=== PATIENT | male | born 1985 | race African-American/Black ===

== ENCOUNTER → 2020-08-18 11:49 | Outpatient (BNVA) | payer MEDICAID, SELFPAY | PROVIDERS: Visit Provider Nurse Practitioner | DX: R13.12 Dysphagia, oropharyngeal phase (principal); K21.9 Gastro-esophageal reflux disease without esophagitis; J30.9 Allergic rhinitis, unspecified; R19.6 Halitosis; D13.0 Benign neoplasm of esophagus | CPT/HCPCS: 99213 ==

== ENCOUNTER 2020-12-14 08:18 | Outpatient (REF) | payer MEDICAID, SELFPAY ==
--- NOTE | 2020-12-14 | FL_ITS ---
EXAMINATION: Double contrast upper GI examination and small bowel series INDICATION: Dysphagia. Gastroesophageal reflux disease. COMPARISON: 03/15/2020 TECHNIQUE: An initial cavalry scout image was obtained. Fluoroscopic assessment of the upper GI tract was performed in various upright and supine/prone obliquities utilizing thin and thick high density barium contrast material and effervescent granules. Following this, additional contrast was administered orally, and interval abdominal radiographs were performed to assess for contrast progression through the small bowel. Following contrast transit through the small bowel and into the colon, the patient was placed on the fluoroscopy table, and multiple spot images were obtained. FLUOROSCOPIC TIME: 1.3 minutes DOSE AREA PRODUCT: 18.921 Gycm2 FINDINGS: Shift Mgr image of the abdomen demonstrates a normal bowel gas pattern. There is normal oral bolus control and transfer. Normal posterior tilt of the epiglottis with elevation of the hyoid. The esophagus was normal in course, caliber, and contour. There was normal distensibility with no fixed segment of narrowing. No focal mucosal abnormality was identified. No significant esophageal dysmotility was observed. Contrast passed freely across the gastroesophageal junction into the stomach. No significant hiatal hernia. There was normal distensibility of the stomach with no focal abnormality identified. There was prompt gastric emptying into the duodenum which demonstrated a normal appearance. Mild gastroesophageal reflux was observed. There was normal transit time of contrast material through the small bowel, with contrast present in the colon by 30 minutes. Small bowel loops are of normal caliber throughout the abdomen and pelvis. The jejunal and ileal fold patterns are normal, without evidence of abnormal thickening. No fixed regions of luminal narrowing are seen to suggest stricturing. The terminal ileum demonstrates a normal appearance. FL/FL small bowel follow through IMPRESSION: Mild gastroesophageal reflux noted. Otherwise normal upper GI examination. Normal small bowel follow-through. Contrast is seen within the colon by 30 minutes post examination. Normal terminal ileum identified.
--- NOTE | 2020-12-14 08:20 | FL_ITS ---
EXAMINATION: Double contrast upper GI examination and small bowel series INDICATION: Dysphagia. Gastroesophageal reflux disease. COMPARISON: 03/15/2020 TECHNIQUE: An initial broadcast program director image was obtained. Fluoroscopic assessment of the upper GI tract was performed in various upright and supine/prone obliquities utilizing thin and thick high density barium contrast material and effervescent granules. Following this, additional contrast was administered orally, and interval abdominal radiographs were performed to assess for contrast progression through the small bowel. Following contrast transit through the small bowel and into the colon, the patient was placed on the fluoroscopy table, and multiple spot images were obtained. FLUOROSCOPIC TIME: 1.3 minutes DOSE AREA PRODUCT: 18.921 Gycm2 FINDINGS: Landscape Foreman image of the abdomen demonstrates a normal bowel gas pattern. There is normal oral bolus control and transfer. Normal posterior tilt of the epiglottis with elevation of the hyoid. The esophagus was normal in course, caliber, and contour. There was normal distensibility with no fixed segment of narrowing. No focal mucosal abnormality was identified. No significant esophageal dysmotility was observed. Contrast passed freely across the gastroesophageal junction into the stomach. No significant hiatal hernia. There was normal distensibility of the stomach with no focal abnormality identified. There was prompt gastric emptying into the duodenum which demonstrated a normal appearance. Mild gastroesophageal reflux was observed. There was normal transit time of contrast material through the small bowel, with contrast present in the colon by 30 minutes. Small bowel loops are of normal caliber throughout the abdomen and pelvis. The jejunal and ileal fold patterns are normal, without evidence of abnormal thickening. No fixed regions of luminal narrowing are seen to suggest stricturing. The terminal ileum demonstrates a normal appearance. FL/FL upper GI series IMPRESSION: Mild gastroesophageal reflux noted. Otherwise normal upper GI examination. Normal small bowel follow-through. Contrast is seen within the colon by 30 minutes post examination. Normal terminal ileum identified.
== END 2020-12-14 08:19 | disposition home or self-care (01) ==
LOC: HO.XRAY 08:18
PROVIDERS: PCP Nurse Practitioner Family; Visit Provider Nurse Practitioner
DX: K21.9 Gastro-esophageal reflux disease without esophagitis (principal)
CPT/HCPCS: 74240; 74246; 74248; 74250

== ENCOUNTER → 2020-12-21 14:32 | Outpatient (BNVA) | payer MEDICAID, SELFPAY | PROVIDERS: PCP Nurse Practitioner Family; Visit Provider Nurse Practitioner ==

== ENCOUNTER 2021-02-01 10:00 | Day surgery (SDC) | payer MEDICAID, SELFPAY ==
[2021-01-24 19:13] VITALS: BMI 13.4
--- NOTE | 2021-01-31 09:47 | HO.ANESPROP2 ---
Documented by User: Anahi Haritha 01/31/21 09:48 HPI - Anesthesia Eval Consult details Narrative: 35yo M for Upper Endoscopy [facility] Active Problems Active Problems: All Active Problems (Updated 08/18/20 @ 12:14 by DENYS Corea) Allergic rhinitis (Acute) High cholesterol (Acute) HTN (hypertension), benign (Acute) Halitosis (Acute) Bipolar disorder (Acute) Papilloma (Acute) Oropharyngeal dysphagia (Acute) Insomnia (Acute) Depression with anxiety (Acute) GERD (gastroesophageal reflux disease) (Acute) Asthma (Acute) Past Medical History Medical History Allergic rhinitis Asthma Bipolar disorder Depression with anxiety GERD (gastroesophageal reflux disease) High cholesterol HTN (hypertension), benign Oropharyngeal dysphagia Papilloma Family History Family History Father Asthma Hypertension Mother Asthma Hypertension Brother Alive and well Surgical History Surgical History H/O esophagogastroduodenoscopy Hx of tonsillectomy Social History Social History Alcohol intake: current Alcohol intake frequency: does not drink Smoking Status: Never smoker Use of substances other than those prescribed or required for medical reasons: No Have you been hit, kicked, punched, or otherwise hurt by someone within the past year? If so, by whom?: No Advance Directives: Yes Advance Directives Information Provided: Yes Advance Directives on File: Yes Advance Directives Date on File: 12/11/20 Meds Allergies Allergy/AdvReac Type Severity Reaction Status Date / Time shellfish derived Allergy Severe ANAPHYLAXIS Verified 01/24/21 19:13 [SHELLFISH DERIVED] Home Medications Medication Instructions Recorded Confirmed Last Taken Type albuterol sulfate 90 mcg/actuation 2 puff INHALATION Q6H PRN 08/18/20 01/24/21 Unknown History aerosol inhaler clonazepam 2 mg tablet 2 mg PO BID 08/18/20 01/24/21 Unknown History fluticasone propionate 50 1 spray INTRANASAL DAILY 08/18/20 01/24/21 Unknown History mcg/actuation nasal spray,suspension hydrochlorothiazide 25 mg tablet 25 mg PO DAILY 08/18/20 01/24/21 Unknown History ketotifen fumarate 0.025 % (0.035 1 drp OPHTHALMIC (EYE) BID 08/18/20 01/24/21 Unknown History %) eye drops montelukast 10 mg tablet 10 mg PO DAILY 08/18/20 01/24/21 Unknown History pravastatin 20 mg tablet 20 mg PO BEDTIME 08/18/20 01/24/21 Unknown History sertraline 25 mg tablet 25 mg PO DAILY 08/18/20 01/24/21 Unknown History trazodone 100 mg tablet 100 mg PO DAILY 08/18/20 01/24/21 Unknown History venlafaxine 150 mg 150 mg PO BEDTIME 08/18/20 01/24/21 Unknown History capsule,extended release 24 hr Exam Exam Date and Time: January 31, [id number] Height,Weight and Vital Signs: Height 5 ft 3 in Weight 34.473 kg Assessment and Plan Assessment Anesthesia Assessment: Chart Reviewed Documented by User: Gopal Aguilar MD 02/01/21 10:19 [facility] Past Medical History Medical History Allergic rhinitis Asthma Bipolar disorder Depression with anxiety GERD (gastroesophageal reflux disease) High cholesterol HTN (hypertension), benign Oropharyngeal dysphagia Papilloma Family History Family History Father Asthma Hypertension Mother Asthma Hypertension Brother Alive and well Surgical History Surgical History H/O esophagogastroduodenoscopy Hx of tonsillectomy Social History Social History Alcohol intake: current Alcohol intake frequency: does not drink Smoking Status: Never smoker Use of substances other than those prescribed or required for medical reasons: No Have you been hit, kicked, punched, or otherwise hurt by someone within the past year? If so, by whom?: No Advance Directives: Yes Advance Directives Information Provided: Yes Advance Directives on File: Yes Advance Directives Date on File: 12/11/20 Meds Allergies Allergy/AdvReac Type Severity Reaction Status Date / Time shellfish derived Allergy Severe ANAPHYLAXIS Verified 01/24/21 19:13 [SHELLFISH DERIVED] Home Medications Medication Instructions Recorded Confirmed Last Taken Type albuterol sulfate 90 mcg/actuation 2 puff INHALATION Q6H PRN 08/18/20 01/24/21 Unknown History aerosol inhaler clonazepam 2 mg tablet 2 mg PO BID 08/18/20 01/24/21 Unknown History fluticasone propionate 50 1 spray INTRANASAL DAILY 08/18/20 01/24/21 Unknown History mcg/actuation nasal spray,suspension hydrochlorothiazide 25 mg tablet 25 mg PO DAILY 08/18/20 01/24/21 Unknown History ketotifen fumarate 0.025 % (0.035 1 drp OPHTHALMIC (EYE) BID 08/18/20 01/24/21 Unknown History %) eye drops montelukast 10 mg tablet 10 mg PO DAILY 08/18/20 01/24/21 Unknown History pravastatin 20 mg tablet 20 mg PO BEDTIME 08/18/20 01/24/21 Unknown History sertraline 25 mg tablet 25 mg PO DAILY 08/18/20 01/24/21 Unknown History trazodone 100 mg tablet 100 mg PO DAILY 08/18/20 01/24/21 Unknown History venlafaxine 150 mg 150 mg PO BEDTIME 08/18/20 01/24/21 Unknown History capsule,extended release 24 hr Exam Airway Mallampati Class: II TM Dist: >3cm Neck ROM: Full Loose/Missing/Broken Teeth: No Heart: RRR Lungs: NL Assessment and Plan Assessment Anesthesia Assessment: Anesthesia Plan Discussed and Chart Reviewed Final Anesthetic Review NPO: Yes ASA Class: II Final Preanesthetic Review: No Changes in Pt Med Stat, Meds/Allgs Chart Reviewed, Consent Obtained/Reviewed and Anes Risks/Benef Reviewed Patient Risk: Low Anesthetic Plan Anesthetic Plan: MAC: Disposition: Standard PACU
[2021-02-01 10:09] VITALS: BP 128/71; PULSE 82; RESP 18; TEMP 36.8; O2SAT 97
--- NOTE | 2021-02-01 10:10 | MHC.SHP ---
Pre-Procedural Eval Section B Chief Complaint: reflux disease,dysphagia Relevant Family History (Specify if Yes): No Relevant Social History: None Present Medications: see Short Stay Collaborative assessment Medical History: Significant History (Allergic rhinitis Asthma Bipolar disorder Depression with anxiety GERD (gastroesophageal reflux disease) High cholesterol HTN (hypertension), benign Oropharyngeal dysphagia Papilloma) History of Previous Operations: Relevant previous surgery/procedure and date(s) (tonsilectomy) Allergies: Allergies Allergy/AdvReac Type Severity Reaction Status Date / Time shellfish derived Allergy Severe ANAPHYLAXIS Verified 01/24/21 19:13 [SHELLFISH DERIVED] Review of Systems Sugical H&P ROS: Negative: Constitution, Cardiovascular, Respiratory, Neurological, Psychiatric, Hem-Onc, Allergic/Immunologic, Gastrointestinal, Genitourinary, Musculoskeletal, Integumentary, Endocrine and Eyes/Ears/Nose/Throat Exam Surgical H&P Exam: Normal: HEENT, Normal: Heart, Normal: Lungs, Normal: Extremities, Normal: Abdomen, Normal: Skin and Normal: Neurological Plan Diagnosis/Plan: Unchanged I have reviewed the history and physical and performed a pertinent physical examination on my patient. No changes have occurred unless specified.
[2021-02-01] MEDS: Lactated Ringers 1,000 ML 100 ML IVCONT (10:26)
--- NOTE | 2021-02-01 10:55 | PM.OP ---
Brief Operative Note Date of Service: 02/01/21 Pre-op diagnosis: dysphagia Post-op diagnosis: same Procedure: see op note Surgeon: Nelda Cota MD Anesthesia: MAC Estimated blood loss (mL): 0 Condition: stable Disposition: PACU
--- NOTE | 2021-02-01 10:58 | W.PM.OPN ---
Operative Note Operative Note Date of Service: 02/01/21 Narrative: Procedure Description: EGD FLEXIBLE TRANSORAL UPPER GASTROINTESTINAL ENDOSCOPY UPPER ENDOSCOPY Consent: Indications for the procedure and potential complications of bleeding, perforation, reaction to medications and missed diagnosis were discussed with the patient and informed consent was obtained. Instrument: Olympus GIF H 190 J mid size upper endoscope Monitoring: Vital signs and clinical assessment, continuous EKG monitoring, Pulse oximetry, Carbon Dioxide monitoring and blood pressure monitoring were done throughout the procedure. Procedure: The patient was placed in the left lateral decubitis position and pre-procedure medications were administered and a bite block was placed. The endoscope was inserted into the mouth and advanced under direct vision to the third part of duodenum. A careful inspection was made as the upper endoscope was withdrawn including a retroflexed examination of the proximal stomach; Findings and interventions are described below. Findings: Larynx:normal Esophagus: GE junction at 40 cm, diaphragm hiatus at 40 cm, irregular Z line bx taken from GEJ and distal/proximal esophagus in separate jars, balloon dilation at GEJ and UES at 20 mm balloon size-no tear seen--small inlet patch seen at proximal esophagus 7-9 mm Stomach: Normal mucosa. Grade 2 flap valve on retroflexed examination of the cardia. Duodenum: Normal bulb and descending duodenum, Intervention: Biopsies as noted above, ablloon dilation Impression/Findings: esophageal inlet patch PLAN: await bx consider aggressive anti acid regimen with PPI BID and carafate, if sx persist then esophageal manometry and pH impedance--Loving is another option but not available here yet
[2021-02-01 11:03] VITALS: BP 99/60; PULSE 103; RESP 20; TEMP 36.7; O2SAT 98
[2021-02-01 11:17] VITALS: BP 93/59; PULSE 80; RESP 18; O2SAT 98
[2021-02-01] MEDS: Albuterol/Iprat 2.5/0.5MG 3 ML AMPUL.NEB INHALE (11:20)
[2021-02-01 11:32] VITALS: BP 102/63; PULSE 76; RESP 18; TEMP 36.4; O2SAT 99
== END 2021-02-01 12:12 | disposition home or self-care (01) ==
PROVIDERS: PCP Nurse Practitioner Family; Visit Provider Internal Medicine Gastroenterology
PROC: 0DJ08ZZ Inspection of Upper Intestinal Tract, Via Natural or Artificial Opening Endoscopic (ICD-10-PCS; CPT 43235; principal; 2021-02-01 10:10)
DX: K22.8 Other specified diseases of esophagus (principal); R13.12 Dysphagia, oropharyngeal phase; K21.9 Gastro-esophageal reflux disease without esophagitis; Q39.8 Other congenital malformations of esophagus; K44.9 Diaphragmatic hernia without obstruction or gangrene; I10 Essential (primary) hypertension; J45.909 Unspecified asthma, uncomplicated
CPT/HCPCS: 43249; 43239; 88305; C1726

== ENCOUNTER → 2021-03-15 14:36 | Outpatient (BNVA) | payer MEDICAID, SELFPAY | PROVIDERS: PCP Nurse Practitioner Family; Visit Provider Nurse Practitioner ==

== ENCOUNTER 2021-10-08 08:06 | Outpatient (REF) | payer MEDICAID, SELFPAY ==
--- NOTE | 2021-10-08 | PFT_ITS ---
Forced vital capacity is normal. FEV1 slightly decreased. [id number] and MVV are moderately decreased. Post bronchodilator therapy, there is significant response and improvement in FEV1, [id number], and MVV. Total lung capacity and residual volume normal. Diffusion capacity normal. CONCLUSION: Mild to moderate degree of obstructive airway disorder with good response to bronchodilator therapy. These findings are consistent with mild bronchial asthma. Clinical correlation is recommended. MD JOE Espinoza/PEDRO / [phone]
== END 2021-10-08 08:07 | disposition home or self-care (01) ==
LOC: HO.RESP 08:06
PROVIDERS: PCP Nurse Practitioner Primary Care; Visit Provider Nurse Practitioner Primary Care
DX: R06.02 Shortness of breath (principal)
CPT/HCPCS: 94060; 94727; 94729

== ENCOUNTER → 2022-02-01 07:51 | Outpatient (BNVA) | payer MEDICAID, SELFPAY | PROVIDERS: PCP Nurse Practitioner Primary Care; Visit Provider Nurse Practitioner | DX: K21.9 Gastro-esophageal reflux disease without esophagitis (principal); R13.12 Dysphagia, oropharyngeal phase; R19.6 Halitosis | CPT/HCPCS: 99212 ==

== ENCOUNTER 2022-02-19 16:48 | Emergency (ER) | payer MEDICAID, SELFPAY ==
[2022-02-19 17:11] VITALS: BP 129/85; PULSE 126; RESP 16; TEMP 36.8; O2SAT 96; BMI 33.5
--- NOTE | 2022-02-19 17:14 | ED_ITS ---
HPI - Allergic Reaction General Chief complaint: Allergic Reaction Stated complaint: allergic reaction/ diff breathing Time Seen by Provider: 02/19/22 17:14 Related Data Home Medications Medication Instructions Recorded Confirmed albuterol sulfate 90 mcg/actuation 2 puff INHALATION Q6H PRN 08/18/20 01/24/21 aerosol inhaler clonazepam 2 mg tablet 2 mg PO BID 08/18/20 01/24/21 fluticasone propionate 50 1 spray INTRANASAL DAILY 08/18/20 01/24/21 mcg/actuation nasal spray,suspension (Flonase Allergy Relief) hydrochlorothiazide 25 mg tablet 25 mg PO DAILY 08/18/20 01/24/21 ketotifen fumarate 0.025 % (0.035 1 drp OPHTHALMIC (EYE) BID 08/18/20 01/24/21 %) eye drops montelukast 10 mg tablet 10 mg PO DAILY 08/18/20 01/24/21 (Singulair) pravastatin 20 mg tablet 20 mg PO BEDTIME 08/18/20 01/24/21 sertraline 25 mg tablet 25 mg PO DAILY 08/18/20 01/24/21 trazodone 100 mg tablet 100 mg PO DAILY 08/18/20 01/24/21 venlafaxine 150 mg 150 mg PO BEDTIME 08/18/20 01/24/21 capsule,extended release 24 hr Previous Rx's Medication Instructions Recorded famotidine 40 mg tablet (Pepcid) 40 mg PO .QAFTERNOON #30 tab 02/01/22 pantoprazole 40 mg tablet,delayed 40 mg PO BID #60 tab 02/05/22 release epinephrine 0.3 mg/0.3 mL 0.3 mg (0.3 mL) IM Q4H PRN #2 ea 02/19/22 injection, auto-injector Allergies Allergy/AdvReac Type Severity Reaction Status Date / Time shellfish derived Allergy Severe ANAPHYLAXIS Verified 02/01/22 07:53 [SHELLFISH DERIVED] [facility] Past Medical History Medical History Allergic rhinitis Asthma Bipolar disorder Depression with anxiety GERD (gastroesophageal reflux disease) High cholesterol HTN (hypertension), benign Oropharyngeal dysphagia Papilloma Surgical History H/O esophagogastroduodenoscopy Hx of tonsillectomy Family History Family History Father Asthma Hypertension Mother Asthma Hypertension Brother Alive and well Social History Social History Household Members: Spouse and Children Alcohol intake: current Alcohol intake frequency: does not drink Advance Directives: Yes Advance Directives on File: Yes Advance Directives Date on File: 12/11/20 Current occupational status: disabled Physical Exam ED Vital Signs: Vital Signs - 24 hr 02/19/22 17:11 Temperature 98.3 F Pulse Rate 126 H Respiratory Rate 16 Blood Pressure 129/85 Pulse Oximetry 96 BMI result Body Mass Index 33.5 Discharge Plan Discharge Clinical Impression: Allergic reaction, Anaphylaxis Patient Disposition: Home, Self-Care Instructions: Food Allergy (ED), Anaphylaxis (ED), General Allergic Reaction (ED), Allergy Testing (ED) Additional Instructions: You were evaluated for anaphylactic reaction to squid. Please do not eat any seafood. You must follow-up with primary care physician for allergy testing. I prescribed epinephrine pens for you. Please pick them up from the pharmacy and keep him with you at all times. Thank you for choosing this emergency department for evaluation. Please follow-up with primary care physician as needed. Return to the emergency department for any new, concerning, or worsening symptoms. Prescriptions: New epinephrine 0.3 mg/0.3 mL auto-injector 0.3 mg IM Q4H PRN (Reason: anaphylaxis) Qty: 2 0RF No Action pantoprazole 40 mg tablet,delayed release (DR/EC) 40 mg PO BID Qty: 60 1RF albuterol sulfate 90 mcg/actuation HFA aerosol inhaler 2 puff inhalation Q6H PRN (Reason: Shortness Of Breath Or Wheezing) 0RF pravastatin 20 mg tablet 20 mg PO BEDTIME 0RF venlafaxine 150 mg capsule,extended release 24hr 150 mg PO BEDTIME 0RF hydrochlorothiazide 25 mg tablet 25 mg PO DAILY 0RF clonazepam 2 mg tablet 2 mg PO BID 0RF montelukast [Singulair] 10 mg tablet 10 mg PO DAILY 0RF trazodone 100 mg tablet 100 mg PO DAILY 0RF sertraline 25 mg tablet 25 mg PO DAILY 0RF fluticasone propionate [Flonase Allergy Relief] 50 mcg/actuation spray,suspension 1 spray intranasal DAILY 0RF Rx Instructions: administer into each nostril ketotifen fumarate 0.025 % (0.035 %) drops 1 drp ophthalmic (eye) BID 0RF Rx Instructions: administer at least 8 hours apart famotidine [Pepcid] 40 mg tablet 40 mg PO .SUHAIL Qty: 30 6RF Referrals: [place] [Primary Care Provider] - (Anaphylactic reaction) Interventions: ED Discharge Assessment Last Done: 02/19/22 18:48 Discharge Date/Time: 02/19/22 18:51
--- NOTE | 2022-02-19 17:15 | ED_ITS ---
HPI - Allergic Reaction General Chief complaint: Allergic Reaction Stated complaint: allergic reaction/ diff breathing Time Seen by Provider: 02/19/22 17:14 Source: patient Mode of arrival: ambulatory Limitations: no limitations History of Present Illness HPI narrative: 36-year-old male presents with allergic reaction after eating squid complaint: allergic reaction, hives, facial swelling and other (Difficulty breathing) Onset (ago): minute(s) (40) Exposure: food Symptoms: facial swelling, lip swelling, difficulty swallowing, difficulty breathing, hoarseness, dizziness, nausea and vomiting Severity: severe Treatment prior to arrival: none Previous Allergic Reaction History: none Related Data Home Medications Medication Instructions Recorded Confirmed albuterol sulfate 90 mcg/actuation 2 puff INHALATION Q6H PRN 08/18/20 01/24/21 aerosol inhaler clonazepam 2 mg tablet 2 mg PO BID 08/18/20 01/24/21 fluticasone propionate 50 1 spray INTRANASAL DAILY 08/18/20 01/24/21 mcg/actuation nasal spray,suspension (Flonase Allergy Relief) hydrochlorothiazide 25 mg tablet 25 mg PO DAILY 08/18/20 01/24/21 ketotifen fumarate 0.025 % (0.035 1 drp OPHTHALMIC (EYE) BID 08/18/20 01/24/21 %) eye drops montelukast 10 mg tablet 10 mg PO DAILY 08/18/20 01/24/21 (Singulair) pravastatin 20 mg tablet 20 mg PO BEDTIME 08/18/20 01/24/21 sertraline 25 mg tablet 25 mg PO DAILY 08/18/20 01/24/21 trazodone 100 mg tablet 100 mg PO DAILY 08/18/20 01/24/21 venlafaxine 150 mg 150 mg PO BEDTIME 08/18/20 01/24/21 capsule,extended release 24 hr Previous Rx's Medication Instructions Recorded famotidine 40 mg tablet (Pepcid) 40 mg PO .QAFTERNOON #30 tab 02/01/22 pantoprazole 40 mg tablet,delayed 40 mg PO BID #60 tab 02/05/22 release epinephrine 0.3 mg/0.3 mL 0.3 mg (0.3 mL) IM Q4H PRN #2 ea 02/19/22 injection, auto-injector Allergies Allergy/AdvReac Type Severity Reaction Status Date / Time shellfish derived Allergy Severe ANAPHYLAXIS Verified 02/01/22 07:53 [SHELLFISH DERIVED] Review of Systems Review of Systems: Constitutional: No Fever, No Chills ENT/Mouth: positive oral swelling, positive Hoarseness, positive Swallowing Difficulty Eyes: No Eye Pain, No Swelling, No Redness Cardiovascular: No Chest Pain, positive SOB Respiratory: Positive stridor, No Cough, No Sputum, positive Wheezing, No Smoke Exposure, No Dyspnea Gastrointestinal: Positive Nausea, positive Vomiting, No Diarrhea, No abdominal Pain Genitourinary: No Dysuria, No Urinary Frequency, No Hematuria Musculoskeletal: No joint pain, No Myalgias, No Joint Swelling Skin: No Skin Lesions, positive rash Neuro: No Weakness, No Numbness, No Headache Psych: No Anxiety/Panic, No Depression Heme/Lymph: No Bruising, No Lymphadenopathy Endocrine: No Polyuria, No Polydipsia Yes all other systems are reviewed and are negative [facility] Past Medical History Attestation statement: The following information was validated with the patient. Source: old records reviewed Medical History Allergic rhinitis Asthma Bipolar disorder Depression with anxiety GERD (gastroesophageal reflux disease) High cholesterol HTN (hypertension), benign Oropharyngeal dysphagia Papilloma Surgical History H/O esophagogastroduodenoscopy Hx of tonsillectomy Family History Family History Father Asthma Hypertension Mother Asthma Hypertension Brother Alive and well Social History Social History Household Members: Spouse and Children Alcohol intake: current Alcohol intake frequency: does not drink Advance Directives: Yes Advance Directives on File: Yes Advance Directives Date on File: 12/11/20 Current occupational status: disabled Physical Exam ED Vital Signs: Vital Signs - 24 hr 02/19/22 17:11 02/19/22 18:31 Temperature 98.3 F Pulse Rate 126 H 114 H Respiratory Rate 16 14 Blood Pressure 129/85 135/72 Pulse Oximetry 96 97 BMI result Body Mass Index 33.5 Appearance: Alert. Oriented X3. Moderate distress. Eyes: Pupils equal, round and reactive to light. ENT: Pharynx normal. Edematous lips Neck: Normal inspection. Neck supple. CVS: Tachycardic heart rate and rhythm. Pulses normal. Respiratory: Moderate respiratory distress. Tracheal stridor with expiratory wheezing throughout lung sounds. Abdomen: Soft and nontender. Skin: Skin warm and dry. Flushed. Hives. Extremities: No lower extremity edema. Moves all extremities against resistance. Neuro: No motor deficit. No sensory deficit. Cranial nerves 2-12 intact. Course Course Course Narrative: 36-year-old male presents with allergic reaction, ate squared approximately 45 minutes prior to arrival. Patient started vomiting, felt his throat closing was unable to take full deep breath. Patient is flushed, has tracheal stridor, tachycardic in the 130s. Order for epi 0.3 IM, Pepcid 20, Benadryl 50, and Solu-Medrol 125. Patient continues with stridor approximately 5 minutes after 1st dose of epinephrine. However patient states that he can breathe better. Second dose of epinephrine ordered. 17:25 lung sounds clear, no tracheal stridor. 17:37 lung sounds clear. No tracheal stridor. Even unlabored respirations. Abdomen nontender to palpation. Lips no longer swollen. Tachycardic at 115. Blood pressure 140/90. 17:44 lung sounds clear, no stridor. Even unlabored respirations. Abdomen nontender to palpation. Tachycardic at 100. Blood pressure 127/78. Apical pulse equal to pulses to all extremities. 18:42 lung sounds clear, no stridor, even unlabored respirations, abdomen nontender, skin normal color no redness or hives noted. Heart rate in the 90s, blood pressure 125/76. Patient states to feel well. Patient will be discharged home. 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 Patient verbalized understanding of and agrees to plan of care to discharge home. Verbalized understanding of signs and symptoms indicating need for emergent intervention MDM - Allergic Reaction Differential Diagnosis Differential diagnosis: Likely anaphylaxis and allergic reaction Medical Records Attestation: I reviewed the patient's medical records. Critical Care Time Critical Care Time Critical Care Time: Yes Total Critical Care Time: 45 Attestation: I have personally provided critical care time exclusive of time spent on separately billable procedures. Time includes review of laboratory data, radiology results, discussion with consultants, and monitoring for potential decompensation. Interventions were performed as documented. Discharge Plan Discharge Clinical Impression: Allergic reaction, Anaphylaxis Patient Disposition: Home, Self-Care Instructions: Food Allergy (ED), Anaphylaxis (ED), General Allergic Reaction (ED), Allergy Testing (ED) Additional Instructions: You were evaluated for anaphylactic reaction to squid. Please do not eat any seafood. You must follow-up with primary care physician for allergy testing. I prescribed epinephrine pens for you. Please pick them up from the pharmacy and keep him with you at all times. Thank you for choosing this emergency department for evaluation. Please follow-up with primary care physician as needed. Return to the emergency department for any new, concerning, or worsening symptoms. Prescriptions: New epinephrine 0.3 mg/0.3 mL auto-injector 0.3 mg IM Q4H PRN (Reason: anaphylaxis) Qty: 2 0RF No Action pantoprazole 40 mg tablet,delayed release (DR/EC) 40 mg PO BID Qty: 60 1RF albuterol sulfate 90 mcg/actuation HFA aerosol inhaler 2 puff inhalation Q6H PRN (Reason: Shortness Of Breath Or Wheezing) 0RF pravastatin 20 mg tablet 20 mg PO BEDTIME 0RF venlafaxine 150 mg capsule,extended release 24hr 150 mg PO BEDTIME 0RF hydrochlorothiazide 25 mg tablet 25 mg PO DAILY 0RF clonazepam 2 mg tablet 2 mg PO BID 0RF montelukast [Singulair] 10 mg tablet 10 mg PO DAILY 0RF trazodone 100 mg tablet 100 mg PO DAILY 0RF sertraline 25 mg tablet 25 mg PO DAILY 0RF fluticasone propionate [Flonase Allergy Relief] 50 mcg/actuation spray,suspe nsion 1 spray intranasal DAILY 0RF Rx Instructions: administer into each nostril ketotifen fumarate 0.025 % (0.035 %) drops 1 drp ophthalmic (eye) BID 0RF Rx Instructions: administer at least 8 hours apart famotidine [Pepcid] 40 mg tablet 40 mg PO .QAFTERNOON Qty: 30 6RF Referrals: [facility] [Primary Care Provider] - (Anaphylactic reaction) Interventions: ED Discharge Assessment Last Done: 02/19/22 18:48 Discharge Date/Time: 02/19/22 18:51
[2022-02-19] MEDS: EPINEPHrine 1 MG/ML VIAL 0.3 MG IM ×2 (17:21→17:46)
[2022-02-19] MEDS: Famotidine/PF 20 MG/2 ML VIAL IVPUSH (17:22)
[2022-02-19] MEDS: diphenhydrAMINE HCL 50 MG/ML VIAL IVPUSH (17:22)
[2022-02-19] MEDS: methylPREDNISolone Sod Succ 125 MG/2 ML VIAL IVPUSH (17:22)
[2022-02-19] MEDS: 0.9 % Sodium Chloride 1,000 ML 999 ML IV (17:46)
[2022-02-19 18:31] VITALS: BP 135/72; PULSE 114; RESP 14; O2SAT 97
== END 2022-02-19 18:51 | disposition home or self-care (01) ==
PROVIDERS: Emergency Provider Emergency Medicine
DX: T78.03XA Anaphylactic reaction due to other fish, initial encounter (principal); R00.0 Tachycardia, unspecified
CPT/HCPCS: 96361; 96372; 96374; 96375; 99284; 99291; J0171; J1200; J2930

== ENCOUNTER → 2022-04-01 14:44 | Outpatient (BNVA) | payer MEDICAID, SELFPAY | PROVIDERS: Visit Provider Nurse Practitioner | DX: K21.9 Gastro-esophageal reflux disease without esophagitis (principal); J32.9 Chronic sinusitis, unspecified; R13.12 Dysphagia, oropharyngeal phase; R19.6 Halitosis | CPT/HCPCS: 99212 ==

== ENCOUNTER 2022-05-01 20:42 | Emergency (ER) | payer MEDICAID, SELFPAY ==
[2022-05-01 20:44] VITALS: PULSE 97; TEMP 36.8; BMI 31.9
[2022-05-01 20:55] VITALS: BP 137/81; PULSE 95
[2022-05-01] MEDS: diphenhydrAMINE HCL 50 MG/ML VIAL IVPUSH (20:55)
[2022-05-01] MEDS: EPINEPHrine 1 MG/ML VIAL 0.3 MG IM (20:55)
[2022-05-01] MEDS: Famotidine/PF 20 MG/2 ML VIAL IVPUSH (20:55)
[2022-05-01] MEDS: methylPREDNISolone Sod Succ 125 MG/2 ML VIAL IVPUSH (20:55)
--- NOTE | 2022-05-01 21:05 | PC.NURSE ---
patient a&ox3, lungs clear throughout, pt c/o facial swelling and difficulty breathing through his nose, campus monitor applied, pt sinus tach on monitor, iv inserted, pt medicated per order, vss, call white within reach, will continue to monitor.
--- NOTE | 2022-05-01 21:38 | ED.ALLEREA ---
HPI - Allergic Reaction General Chief complaint: Allergic Reaction Stated complaint: allergic reaction diff breathing Time Seen by Provider: 05/01/22 20:50 Source: patient Mode of arrival: ambulatory Limitations: no limitations History of Present Illness HPI narrative: Patient allergic to seafood had Dutch and egg roll which did not contain any seafood but after eating that patient started having itching on the face shortness of breath and wheezing. Denies any lip or tongue swelling Related Data Home Medications Medication Instructions Recorded Confirmed albuterol sulfate 90 mcg/actuation 2 puff inhalation Q6H PRN 08/18/20 01/24/21 aerosol inhaler Shortness Of Breath Or Wheezing clonazepam 2 mg tablet 2 mg PO BID 08/18/20 01/24/21 fluticasone propionate 50 1 spray intranasal DAILY 08/18/20 01/24/21 mcg/actuation nasal spray,suspension (Flonase Allergy Relief) hydrochlorothiazide 25 mg tablet 25 mg PO DAILY 08/18/20 01/24/21 ketotifen fumarate 0.025 % (0.035 1 drp ophthalmic (eye) BID 08/18/20 01/24/21 %) eye drops montelukast 10 mg tablet 10 mg PO DAILY 08/18/20 01/24/21 (Singulair) pravastatin 20 mg tablet 20 mg PO BEDTIME 08/18/20 01/24/21 sertraline 25 mg tablet 25 mg PO DAILY 08/18/20 01/24/21 trazodone 100 mg tablet 100 mg PO DAILY 08/18/20 01/24/21 venlafaxine 150 mg 150 mg PO BEDTIME 08/18/20 01/24/21 capsule,extended release 24 hr Previous Rx's Medication Instructions Recorded famotidine 40 mg tablet (Pepcid) 40 mg PO .QAFTERNOON #30 tabs 02/01/22 epinephrine 0.3 mg/0.3 mL 0.3 mg (0.3 mL) IM Q4H PRN 02/19/22 injection, auto-injector anaphylaxis #2 ea pantoprazole 40 mg tablet,delayed 40 mg PO BID #60 tabs 03/26/22 release doxycycline hyclate 100 mg capsule 100 mg PO BID 14 days #28 caps 04/01/22 diphenhydramine HCl 25 mg capsule 50 mg PO Q6-8H PRN allergic 05/01/22 (Benadryl) reaction #30 caps epinephrine 0.3 mg/0.3 mL 0.3 mg (0.3 mL) IM Q4H PRN 05/01/22 injection, auto-injector (EpiPen anaphylaxis #2 ea 2-Denny) prednisone 20 mg tablet 40 mg PO DAILY #10 tabs 05/01/22 Allergies Allergy/AdvReac Type Severity Reaction Status Date / Time shellfish derived Allergy Severe ANAPHYLAXIS Verified 04/01/22 14:50 [SHELLFISH DERIVED] Review of Systems Review of Systems: Yes all other systems are reviewed and are negative [facility] Past Medical History Medical History Allergic rhinitis Asthma Bipolar disorder Depression with anxiety High cholesterol HTN (hypertension), benign Surgical History H/O esophagogastroduodenoscopy Hx of tonsillectomy Family History Family History Father Asthma Hypertension Mother Asthma Hypertension Brother Alive and well Social History Social History Household Members: Spouse and Children Alcohol intake: never Patient Tobacco Use Status: Never used Tobacco Use of substances other than those prescribed or required for medical reasons: No Advance Directives: Yes Advance Directives Information Provided: No Advance Directives on File: No Advance Directives Date on File: 12/11/20 Current occupational status: disabled Physical Exam ED Vital Signs: Vital Signs - 24 hr 05/01/22 20:44 05/01/22 20:55 Temperature 98.3 F Pulse Rate 97 95 Blood Pressure 137/81 Oxygen Delivery Method Room Air BMI result Body Mass Index 31.9 Appearance: Alert. Oriented X3. No acute distress. Eyes: PERRLA, No Nystagmus HEENT: Pharynx normal. Oral Mucosa moist face is swollen with erythema Neck: Normal inspection. Neck supple. CVS: Normal heart rate and rhythm. Pulses normal. Respiratory: No respiratory distress. Equal air entry bilateral, bilateral wheezing Abdomen: Soft and nontender. Bowel sounds are present, no mass palpable, no CVA tenderness Skin: Skin warm and dry. Erythema of the face Normal skin turgor. Extremities: No lower extremity edema. No calf tenderness Neuro: Oriented X 3. No motor deficit. MDM - Allergic Reaction MDM Narrative Medical decision making narrative: Patient with acute anaphylaxis after eating Dutch food IM epinephrine was given and Solu-Medrol with Benadryl patient responded and not feeling back to normal lungs will discharge patient Discharge Plan Discharge Clinical Impression: Anaphylaxis Patient Disposition: Home, Self-Care Instructions: Food Allergy (ED) Additional Instructions: Be careful next time when you eat food outside try to stay away from seafood Benadryl as prescribed Keep the EpiPen with you and use it as advised Prescriptions: New diphenhydramine HCl [Benadryl] 25 mg capsule 50 mg PO Q6-8H PRN (Reason: allergic reaction) Qty: 30 0RF epinephrine [EpiPen 2-Denny] 0.3 mg/0.3 mL auto-injector 0.3 mg IM Q4H PRN (Reason: anaphylaxis) Qty: 2 0RF prednisone 20 mg tablet 40 mg PO DAILY Qty: 10 0RF No Action pantoprazole 40 mg tablet,delayed release (DR/EC) 40 mg PO BID Qty: 60 1RF epinephrine 0.3 mg/0.3 mL auto-injector 0.3 mg IM Q4H PRN (Reason: anaphylaxis) Qty: 2 0RF albuterol sulfate 90 mcg/actuation HFA aerosol inhaler 2 puff inhalation Q6H PRN (Reason: Shortness Of Breath Or Wheezing) pravastatin 20 mg tablet 20 mg PO BEDTIME venlafaxine 150 mg capsule,extended release 24hr 150 mg PO BEDTIME hydrochlorothiazide 25 mg tablet 25 mg PO DAILY clonazepam 2 mg tablet 2 mg PO BID montelukast [Singulair] 10 mg tablet 10 mg PO DAILY trazodone 100 mg tablet 100 mg PO DAILY sertraline 25 mg tablet 25 mg PO DAILY fluticasone propionate [Flonase Allergy Relief] 50 mcg/actuation spray,suspension 1 spray intranasal DAILY Rx Instructions: administer into each nostril ketotifen fumarate 0.025 % (0.035 %) drops 1 drp ophthalmic (eye) BID Rx Instructions: administer at least 8 hours apart famotidine [Pepcid] 40 mg tablet 40 mg PO .QAFTERNOON Qty: 30 6RF doxycycline hyclate 100 mg capsule 100 mg PO BID 14 Days Qty: 28 0RF
[2022-05-01 22:15] VITALS: BP 136/80; PULSE 102; RESP 16; O2SAT 99
--- NOTE | 2022-05-01 22:16 | PC.NURSE ---
Removed Iv, Reviewed discharge instructions and medications with pt. pt verbalizes understanding.
--- NOTE | 2022-05-01 22:17 | PC.NURSE ---
pt a&o, no sob or chest pain. Reviewed discharge instruction and medications.
== END 2022-05-01 22:18 | disposition home or self-care (01) ==
PROVIDERS: Emergency Provider Internal Medicine; PCP Nurse Practitioner Primary Care
DX: T78.03XA Anaphylactic reaction due to other fish, initial encounter (principal); R06.02 Shortness of breath; Z79.899 Other long term (current) drug therapy
CPT/HCPCS: 96372; 96374; 96375; 99284; J0171; J1200; J2930

== ENCOUNTER → 2022-05-03 12:56 | Outpatient (BNVA) | payer MEDICAID, SELFPAY | PROVIDERS: PCP Nurse Practitioner Primary Care; Visit Provider Nurse Practitioner | DX: K21.9 Gastro-esophageal reflux disease without esophagitis (principal); R19.6 Halitosis; J32.9 Chronic sinusitis, unspecified | CPT/HCPCS: 99212 ==

== ENCOUNTER → 2022-07-25 14:45 | Outpatient (BNVA) | payer MEDICAID, SELFPAY | PROVIDERS: PCP Nurse Practitioner Primary Care; Referring Provider Nurse Practitioner Primary Care; Visit Provider Nurse Practitioner | DX: K21.9 Gastro-esophageal reflux disease without esophagitis (principal); R19.6 Halitosis; R13.12 Dysphagia, oropharyngeal phase; J32.9 Chronic sinusitis, unspecified; Z86.018 Personal history of other benign neoplasm | CPT/HCPCS: 99212 ==

== ENCOUNTER → 2022-09-05 14:54 | Outpatient (BNVA) | payer MEDICAID, SELFPAY | PROVIDERS: PCP Nurse Practitioner Primary Care; Visit Provider Nurse Practitioner | DX: K21.9 Gastro-esophageal reflux disease without esophagitis (principal); R13.12 Dysphagia, oropharyngeal phase; R19.6 Halitosis; D36.9 Benign neoplasm, unspecified site | CPT/HCPCS: 99212 ==

== ENCOUNTER 2024-04-13 11:34 | Outpatient (AMB) | payer MEDICAID, SELFPAY ==
[2024-04-13 11:37] VITALS: BP 128/74; PULSE 71; BMI 33.4
--- NOTE | 2024-04-13 11:37 | A.OFFVIS_ITS ---
Vital Signs 04/13/24 11:37 Height 5 ft 4 in Weight 194 lb 7.163 oz BMI 33.4 BP 128/74 Blood Pressure Location Lt brachial Position Sitting Pulse 71 Intake Visit Reasons: gerd PT N/S last 4 visits Intake Note: Billy presents to in office visit today in follow up of GERD. CC: Patient with c/o heartburn and acid reflux. Denies having any other GI concerns today. Patient not too sure about medications he is on because he gets the [employer]. 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 Since the Reglan did not do any harm but did not help we will obviously discontinue it.? He continues on pantoprazole in the morning and famotidine in the evening for GERD.? He also suffers from chronic sinusitis so at this point I recommend that he see an ear nose throat provider since we could not find, after extremely thorough workup, any gastric reason for his halitosis. We will see him in 6 months for follow-up on his GERD. 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 ? ? Medications: Refilled pantoprazole 40 mg? PO BID 60 tabs 6RF ? ? Discontinued famotidine ?? Discontinued Reason:? Doctor's Order 40 mg? PO QPM 30 tabs 6RF ? ? metoclopramide HCl (Reglan) ?? Provider aware of possible interaction and will monitor ?? Discontinued Reason:? Doctor's Order 5 mg? PO .tidac 90 tabs 3RF ? TODAY'S VISIT He has dull pain in the left suprapubic area - no TICS inflammation on CT, ? radicular pain at low thoracic levels or even the left inguinal hernia. Pt declines referral to surgery. Will see PCP soon and get his opinion as well. At this time he does not really want anymore surgeries which is a course valid so long as his pain is controlled. Stop bentyl as it does not seem to be helping, can resumes prn if needed. ROV 3 mos. PFS Medical History Allergic rhinitis High cholesterol HTN (hypertension), benign Bipolar disorder Papilloma Oropharyngeal dysphagia Depression with anxiety GERD (gastroesophageal reflux disease) Asthma Surgical History H/O esophagogastroduodenoscopy Hx of tonsillectomy Family History Father Asthma Hypertension Mother Asthma Hypertension Brother Alive and well Social History Household Members: Spouse and Children Alcohol intake: never Patient Tobacco Use Status: Never used Tobacco Advance Directives Date on File: 12/11/20 Current occupational status: disabled Review of Systems Const Denies fatigue, Denies fever(s), Denies night sweats, Denies poor appetite and Denies weight loss ENT Reports Normal hearing present, Reports halitosis, Denies dental pain, Denies dysphagia, Denies hearing loss, Denies mouth pain, Denies odynophagia, Reports post nasal drip, Denies throat swelling, Denies tongue swelling and Reports other (Dentition adequate) Card Reports no additional complaints Resp Reports cough GI Details: Denies abdominal pain, Denies melena, Denies bloating, Denies hematochezia, Denies constipation, Denies GI cramping, Denies dysphagia, Denies excessive flatus, Denies early satiety, Reports heartburn, Denies diarrhea, Denies nausea, Denies odynophagia, Denies vomiting and Denies hematemesis Skin/Breast Denies pruritus, Denies lesions, Denies rash and Denies jaundice Neuro Reports Normal hearing present and Denies Abnormal speech present Endo Denies fatigue Aller/Immun Denies throat swelling and Denies tongue swelling Physical Exam Vital Signs: Last Vital Signs Pulse 71 04/13/24 11:37 BP 128/74 04/13/24 11:37 BMI result Body Mass Index 33.4 Const General: cooperative, no acute distress, well developed and well groomed Nutritional Appearance: well nourished and obese Orientation/consciousness: oriented to person, oriented to place and oriented to time Limitations: language barrier HEENT Head: Yes normocephalic and Yes atraumatic Eyes General: appearance normal, both eyes and all related structures Pupils: Equal, round and reactive pupils present Neck Neck: Yes normal visual inspection and Yes no lymphadenopathy Thyroid: Thyroid normal Resp Effort & Inspection: normal respiratory effort and able to speak in complete sentences Auscultation: clear to auscultation bilaterally Cardio Rate: regular rate Rhythm: regular rhythm Heart sounds: Normal, physiologic split S2 sound present Peripheral pulses: radial pulses present and posterior tibial pulses present GI Inspection: No distended, No Abdominal panniculus present and Yes obesity Palpation (GI): Soft to palpation, nontender, no guarding, not rigid and No hepatosplenomegaly present Percussion: Yes normal to percussion Auscultation: normal bowel sounds Rectal Exam - Male: Yes deferred Skin General skin exam: no rashes or lesions noted, turgor normal, skin not dry, no jaundice, No spider nevi and no striae Rashes: no rashes Nails: normal Neuro General: oriented to person, oriented to place and oriented to time Cranial nerves: Yes Equal, round and reactive pupils present and Yes Normal hearing present Speech: No Abnormal speech present Extrem General: Yes normal to inspection, No clubbing, No cyanosis and No edema Psych Appearance: grossly normal and well kempt Mental Status: mental status grossly normal Speech and movement: Normal speech and movement present Affect: normal affect Attitude: cooperative Thought process: Normal thought process present and not confabulating Thought content: Normal thought content present Insight: Limited insight present (Psych) Judgement: Limited judgement present (Psych) Assessment & Plan Assessment & Plan (1) GERD (gastroesophageal reflux disease): Code(s): K21.9 - Gastro-esophageal reflux disease without esophagitis Category: Medical (2) Oropharyngeal dysphagia: Code(s): R13.12 - Dysphagia, oropharyngeal phase Category: Medical (3) Chronic sinusitis: Code(s): J32.9 - Chronic sinusitis, unspecified Category: Medical Plan He has dull pain in the left suprapubic area - no TICS inflammation on CT, ? radicular pain at low thoracic levels or even the left inguinal hernia. Pt declines referral to surgery. Will see PCP soon and get his opinion as well. At this time he does not really want anymore surgeries which is a course valid so long as his pain is controlled. Stop bentyl as it does not seem to be helping, can resumes prn if needed. ROV 3 mos. Orders: Referrals Ear/Nose/Throat Referral J32.9 - Chronic sinusitis, unspecified Medications: Refilled pantoprazole 40 mg PO BID 60 tabs 6RF Coding Level of Care Code Est Pt Level 3 (85290) Diagnoses GERD (gastroesophageal reflux disease) K21.9 Oropharyngeal dysphagia R13.12 Chronic sinusitis J32.9
== END 2024-04-13 12:40 | disposition home or self-care (01) ==
PROVIDERS: PCP Nurse Practitioner Primary Care; Visit Provider Nurse Practitioner
DX: K21.9 Gastro-esophageal reflux disease without esophagitis (principal); R13.12 Dysphagia, oropharyngeal phase; J32.9 Chronic sinusitis, unspecified
CPT/HCPCS: 99213

== ENCOUNTER → 2024-04-13 11:34 | Outpatient (BNVA) | payer MEDICAID, SELFPAY | PROVIDERS: PCP Nurse Practitioner Primary Care; Visit Provider Nurse Practitioner | DX: K21.9 Gastro-esophageal reflux disease without esophagitis (principal); R13.12 Dysphagia, oropharyngeal phase; J32.9 Chronic sinusitis, unspecified; Z79.899 Other long term (current) drug therapy | CPT/HCPCS: 99212 ==

== ENCOUNTER 2024-07-01 11:17 | Outpatient (REF) | payer MEDICAID, SELFPAY ==
[2024-07-01 13:19] LABS: MANUAL DIFF FLAG NO
[2024-07-01 13:32] LABS: Basophils Percent Auto 0.4 % (0-2); Eosinophils Absolute Auto 0.1 X10*3/uL (0.0-0.4); Eosinophils Percent Auto 1.1 % (0-4); Hematocrit 47.4 % (42.0-52.0); Hemoglobin 15.6 g/dl (14.0-18.0); Imm Gran Abs Auto 0.01 X10*3/uL (0.00-0.03); Imm Gran Pct Auto 0.1 % (0.0-0.4); Lymphocytes Absolute Auto 2.3 X10*3/uL (1.2-4.9); Lymphocytes Percent Auto 32.2 % (20-40); Mean Corpuscular HGB Conc 32.9 g/dl (31.0-36.0); Mean Corpuscular Hemoglobin 26.9 pg (27.0-33.0); Mean Corpuscular Volume 81.9 fL (80.0-98.0); Mean Platelet Volume 9.9 fL (9.4-12.4); Monocytes Absolute Auto 0.7 X10*3/uL (0.1-1.2); Monocytes Percent Auto 9.2 % (2-11); Neutrophils Absolute Auto 4.1 x10*3/uL (2.0-8.3); Platelet Count 322 X10*3/uL (160-400); Red Blood Count 5.79 X10*6/uL (4.60-5.80); Red Cell Distribution Width 14.4 % (11.0-16.0); White Blood Count 7.2 X10*3/uL (4.8-10.8)
[2024-07-01 13:38] LABS: Estimated Average Glucose 111 mg/dL; Hemoglobin A1c % 5.5 % (<6.0)
[2024-07-01 13:52] LABS: Anion Gap 12 (12-20); Blood Urea Nitrogen 12 mg/dL (9-16); Calcium 10.2 mg/dL (8.4-10.2); Carbon Dioxide 30 mmol/L (22-29); Chloride 103 mmol/L (96-108); Cholesterol 176 mg/dL (<200); Estimated Glomerular Filt Rate > 60; Glucose Random 102 mg/dL (60-115); HDL Cholesterol 43 mg/dL (>40); LDL Cholesterol Calculated 108 mg/dL (<100); Potassium 3.7 mmol/L (3.3-5.1); Sodium 141 mmol/L (135-145); Triglycerides 125 mg/dL (<150)
[2024-07-01 14:06] LABS: HIV AB/AG Nonreactive (Nonreactive); HIV Num 1 0.05 S/CO (0.00-0.99); ~HepC Num1 0.24 S/CO (0.00-0.79); ~Hepatitis C Antibody Nonreactive (Nonreactive)
[2024-07-01 14:08] LABS: TSH reflex Free T4 0.29 uIU/mL (0.32-4.0); Vitamin D 25-OH Total 35.6 ng/mL (>30)
[2024-07-01 14:19] LABS: Creatinine Urine 186.61 mg/dL; Microalbum/Creatinine Ratio Ur 11.2 ug/mg cr (<30)
[2024-07-01 15:09] LABS: Free T4 (Free Thyroxine) 1.33 ng/dL (0.71-1.85)
[2024-07-02 11:28] LABS: RPR Rapid Plasma Reagin NON-REACTIVE (NON-REACTIVE)
== END 2024-07-01 11:18 | disposition home or self-care (01) ==
LOC: HO.HHCL 11:17
PROVIDERS: Visit Provider Nurse Practitioner Primary Care
DX: Z00.00 Encounter for general adult medical examination without abnormal findings (principal); I10 Essential (primary) hypertension; F41.8 Other specified anxiety disorders; Z11.3 Encounter for screening for infections with a predominantly sexual mode of transmission; R79.89 Other specified abnormal findings of blood chemistry
CPT/HCPCS: 36415; 80048; 80061; 82043; 82306; 82570; 83036; 84439; 84443; 85025; 86592; 86803; 87389

== ENCOUNTER → 2024-07-30 09:40 | Outpatient (REF) | payer MEDICAID, SELFPAY ==
--- NOTE | 2024-07-30 09:42 | CA_ITS ---
Transthoracic Echocardiogram Patient (Last, First, Middle): Billy Poole, Gender: Male Date of : 1985 Age: 39 Procedure Date: 07/30/2024 Procedure Type: Transthoracic Echocardiogram Location: OP Height: 162.56 cm Weight: 86.18 kg BSA: 1.91 m2 Heart Rate: 81 bpm BP: 118 / 60 mmHg [employer] Instructor: MITCH Referring MD: Carolina Arguello NP Inspector Repairer: Ward Mckeon MD Symptoms: ATYPICAL CHEST PAIN Study Quality: Fair but adequate ECG Rhythm: Sinus Conclusions: - Essentially normal study Findings Left Ventricle Normal left ventricular size, thickness, and systolic function. The visually estimated ejection fraction is between 60-65%. Spectral Doppler is indicative of a normal filling pattern. Right Ventricle Normal right ventricular cavity size and systolic function. Atria Both atria are normal in size. Interatrial shunt cannot be excluded. Aortic Valve Normal aortic valve structure and function. There is no aortic valve stenosis. There is no aortic valve regurgitation. Mitral Valve Normal mitral valve structure and function. There is trace mitral valve regurgitation. There is no mitral valve stenosis. Pulmonic Valve The pulmonic valve is likely normal. Tricuspid Valve Normal tricuspid valve structure. Normal right atrial pressure. There is no evidence of pulmonary hypertension. Great Vessels All visible segments of the aorta are normal in size. The pulmonary artery was not well visualized. Venous The inferior vena cava is normal in size and collapses greater than 50% with inspiration. Pericardium/Pleural There is no evidence of pericardial effusion. Prior Study Comparison No prior study available for comparison. Measurements 2D Linear Measurements IVSd: 1.14 0.6-0.9/0.6-1.0 cm LVIDd: 4.17 3.9-5.3/4.2-5.9 cm LVIDd Index: 2.18 2.4-3.2/2.2-3.1 cm/m2 LVIDs: 2.58 2.0-3.6 cm LVPWd: 0.98 0.7-1.1 cm LA Diam: 3.80 2.7-3.8/3.0-4.0 cm LAIDs Index: 1.99 1.5-2.3 cm/m2 LV Mass: 183.03 67-162/88-224 g LV Mass Index: 95.83 43-95/49-115 g/m2 LVOT Diam: 1.90 3.0+(-)1.3 cm 2D Systolic Function EF 4C: 49.70 >55% EF 2C: 67.50 >55% EF BiP: 59.60 >55% Mitral Valve MV Pk E: 1.11 MV PK A: 0.84 MV Decel Time: 176.00 E/A: 1.30 E'Lateral: 10.60 E'Medial: 8.70 E/E' Med: 12.80 E/E' Lat: 10.50 PHT: 52.00 MVA PHT: 4.23 Decel Traverse: 6.28 Aortic Valve AoV Pk Iwlmer: 1.22 AoV Pk Grad: 6.00 VIVI: 2.37 LVOT LVOT Pk Wilmer: 1.09 LVOT Mn Wilmer: 0.73 LVOT VTI: 0.20 LVOT Pk Grad: 5.00 LVOT Mn Grad: 2.00 LVOT Diam: 1.90 LVOT Area: 2.84 Diastolic Function MV Pk E: 1.11 MV Pk A: 0.84 E/A: 1.30 E'Medial: 8.70 E/E' Med: 12.80 E' Laterial: 10.60 E/E' Lat: 10.50 Right Ventricle TAPSE (mm): 21.20 TVS' Wilmer: 12.90 Tricuspid Valve RA Press: 3.00 Great Vessels Aorta Sinus of Valsalva: 2.80 2.0-3.5 cm Ao Asc: 2.60 2.1-3.4 cm Pulmonary Veins Pulm Vein S/D 0.90 Pulmonary Valve PV Pk Wilmer: 1.62 Peak PV Grad: 10.00 Updated in Other Vendor System with Status of Final Ward Mckeon MD electronically signed on 07/30/2024 2:04:47 PM with status of Final
== END ==
LOC: HO.CARD 09:40
PROVIDERS: PCP Nurse Practitioner Primary Care; Visit Provider Nurse Practitioner Primary Care
DX: R07.89 Other chest pain (principal)
CPT/HCPCS: 93306

== ENCOUNTER → 2024-07-30 09:42 | Outpatient (BNV) | payer MEDICAID, SELFPAY | PROVIDERS: PCP Nurse Practitioner Primary Care; Visit Provider Internal Medicine Cardiovascular Disease | DX: R07.89 Other chest pain (principal) | CPT/HCPCS: 93306 ==

== ENCOUNTER 2024-10-13 11:48 | Outpatient (AMB) | payer MEDICAID, SELFPAY ==
--- NOTE | 2024-10-13 11:51 | A.OFFVIS_ITS ---
Vital Signs 10/13/24 11:58 Height 5 ft 4 in Weight 186 lb 8.177 oz BMI 32.0 BP 124/78 Blood Pressure Location Rt brachial Position Sitting Pulse 77 Intake Visit Reasons: 6 month follow up Gerd Intake Note: Patient in office today in 6 months follow up of GERD. CC: Per patient he continues feeling the same. He c/o heartburn, acid reflux, and having to clear up his throat constantly. Allergies shellfish derived [SHELLFISH DERIVED] Allergy (Severe, Verified 10/13/24 12:08) ANAPHYLAXIS No Known Drug Allergies Allergy (Mild, Verified 10/13/24 12:08) Unknown HPI HPI 6 month follow up Gerd: Details: Assessment & Plan (1) GERD (gastroesophageal reflux disease): Code(s): K21.9 - Gastro-esophageal reflux disease without esophagitis Category: Medical (2) Oropharyngeal dysphagia: Code(s): R13.12 - Dysphagia, oropharyngeal phase Category: Medical (3) Chronic sinusitis: Code(s): J32.9 - Chronic sinusitis, unspecified Category: Medical Plan He has dull pain in the left suprapubic area - no TICS inflammation on CT, ? radicular pain at low thoracic levels or even the left inguinal hernia. Pt declines referral to surgery. Will see PCP soon and get his opinion as well. At this time he does not really want anymore surgeries which is a course valid so long as his pain is controlled. Stop bentyl as it does not seem to be helping, can resumes prn if needed. ROV 3 mos. Orders: Referrals Ear/Nose/Throat Referral J32.9 - Chronic sinusitis, unspecified Medications: Refilled pantoprazole 40 mg PO BID 60 tabs 6RF TODAYS VISIT The patient is on pantoprazole 40mg bid. He continues to have constant cough with halitosis and hoarse voice. He has not heard from the local ENT so I am going to redirect him to a group in [facility]. He is agreeable to this. If they can not find any reason for this then will consider if allergy/immunology should be consulted next. Return office visit in 6 months [facility] Medical History Allergic rhinitis High cholesterol HTN (hypertension), benign Bipolar disorder Papilloma Oropharyngeal dysphagia Depression with anxiety GERD (gastroesophageal reflux disease) Asthma Surgical History H/O esophagogastroduodenoscopy Hx of tonsillectomy Family History Father Asthma Hypertension Mother Asthma Hypertension Brother Alive and well Social History Household Members: Spouse and Children Alcohol intake: never Patient Tobacco Use Status: Never used Tobacco Advance Directives Date on File: 12/11/20 Current occupational status: disabled Review of Systems Const Denies fatigue, Denies fever(s), Denies night sweats, Denies poor appetite and Denies weight loss ENT Reports Normal hearing present, Reports halitosis, Denies dental pain, Denies dysphagia, Denies hearing loss, Reports hoarseness, Denies mouth pain, Denies odynophagia, Denies throat swelling, Denies tongue swelling and Reports other (Dentition adequate) Card Reports no additional complaints Resp Reports cough GI Details: Denies abdominal pain, Denies melena, Denies bloating, Denies hematochezia, Denies constipation, Denies GI cramping, Denies dysphagia, Denies excessive flatus, Denies early satiety, Reports heartburn, Denies diarrhea, Denies nausea, Denies odynophagia, Denies vomiting and Denies hematemesis Skin/Breast Denies pruritus, Denies lesions, Denies rash and Denies jaundice Neuro Reports Normal hearing present and Denies Abnormal speech present Endo Denies fatigue Aller/Immun Denies throat swelling and Denies tongue swelling Physical Exam Vital Signs: Last Vital Signs Pulse 77 10/13/24 11:58 BP 124/78 10/13/24 11:58 BMI result Body Mass Index 32.0 Const General: cooperative, no acute distress, well developed and well groomed Nutritional Appearance: well nourished and obese Orientation/consciousness: oriented to person, oriented to place and oriented to time Limitations: No language barrier HEENT Head: Yes normocephalic and Yes atraumatic Eyes General: appearance normal, both eyes and all related structures Pupils: Equal, round and reactive pupils present Neck Neck: Yes normal visual inspection and Yes no lymphadenopathy Thyroid: Thyroid normal Resp Effort & Inspection: normal respiratory effort and able to speak in complete sentences Auscultation: clear to auscultation bilaterally Cardio Rate: regular rate Rhythm: regular rhythm Heart sounds: Normal, physiologic split S2 sound present Peripheral pulses: radial pulses present and posterior tibial pulses present GI Inspection: No distended, No Abdominal panniculus present and Yes obesity Palpation (GI): Soft to palpation, nontender, no guarding, not rigid and No hepatosplenomegaly present Percussion: Yes normal to percussion Auscultation: normal bowel sounds Rectal Exam - Male: Yes deferred Skin General skin exam: no rashes or lesions noted, turgor normal, skin not dry, no jaundice, No spider nevi and no striae Rashes: no rashes Nails: normal Neuro General: oriented to person, oriented to place and oriented to time Cranial nerves: Yes Equal, round and reactive pupils present and Yes Normal hearing present Speech: No Abnormal speech present Extrem General: Yes normal to inspection, No clubbing, No cyanosis and No edema Psych Appearance: grossly normal and well kempt Mental Status: mental status grossly normal Speech and movement: Normal speech and movement present Affect: normal affect Attitude: cooperative Thought process: Normal thought process present and not confabulating Thought content: Normal thought content present Insight: Limited insight present (Psych) Judgement: Limited judgement present (Psych) Assessment & Plan Assessment & Plan (1) GERD (gastroesophageal reflux disease): Code(s): K21.9 - Gastro-esophageal reflux disease without esophagitis Category: Medical (2) Oropharyngeal dysphagia: Code(s): R13.12 - Dysphagia, oropharyngeal phase Category: Medical (3) Chronic sinusitis: Code(s): J32.9 - Chronic sinusitis, unspecified Category: Medical (4) Halitosis: Code(s): R19.6 - Halitosis Category: Medical Plan The patient is on pantoprazole 40mg bid. He continues to have constant cough with halitosis and hoarse voice. He has not heard from the local ENT so I am g oing to redirect him to a group in [place]. He is agreeable to this. If they can not find any reason for this then will consider if allergy/immunology should be consulted next. Return office visit in 6 months Orders: Referrals Ear/Nose/Throat Referral J32.9 - Chronic sinusitis, unspecified, R19.6 - Halitosis Medications: Refilled pantoprazole 40 mg PO BID 60 tabs 6RF Coding Level of Care Code Est Pt Level 3 (21700) Diagnoses GERD (gastroesophageal reflux disease) K21.9 Oropharyngeal dysphagia R13.12 Chronic sinusitis J32.9 Halitosis R19.6
[2024-10-13 11:58] VITALS: BP 124/78; PULSE 77; BMI 32.0
== END 2024-10-13 12:38 | disposition home or self-care (01) ==
PROVIDERS: PCP Nurse Practitioner Primary Care; Visit Provider Nurse Practitioner
DX: K21.9 Gastro-esophageal reflux disease without esophagitis (principal); R13.12 Dysphagia, oropharyngeal phase; J32.9 Chronic sinusitis, unspecified; R19.6 Halitosis
CPT/HCPCS: 99213

== ENCOUNTER → 2024-10-13 11:48 | Outpatient (BNVA) | payer MEDICAID, SELFPAY | PROVIDERS: PCP Nurse Practitioner Primary Care; Visit Provider Nurse Practitioner | DX: K21.9 Gastro-esophageal reflux disease without esophagitis (principal); R13.12 Dysphagia, oropharyngeal phase; J32.9 Chronic sinusitis, unspecified; R19.6 Halitosis | CPT/HCPCS: 99212 ==

== ENCOUNTER 2024-11-11 16:00 | Outpatient (REF) | payer MEDICAID, SELFPAY ==
[2024-11-11 16:05] LABS: Appearance Urine Turbid; Color Urine Dark Yellow; Glucose Urine UA Negative (Negative); Leukocyte Esterase Urine Trace (Negative); Nitrite Urine Negative (Negative); Specific Gravity - Urine 1.025 (1.005-1.025); UMIC TRIGGER UACC YES; Urine Blood Moderate (2+) (Negative); Urine Ketones Trace mg/dL (Negative); Urine Protein Trace mg/dL (Neg-Trace)
[2024-11-11 16:07] LABS: Bacteria Urine None Seen (None Seen); Squamous Epithelial Cell Urine 0-2 /HPF (0-2); WBC Urine 0-5 /HPF (0-5)
== END 2024-11-11 16:01 | disposition home or self-care (01) ==
LOC: HO.HHCLNP 16:00
PROVIDERS: Visit Provider Nurse Practitioner Primary Care
DX: R31.29 Other microscopic hematuria (principal)
CPT/HCPCS: 81001

== ENCOUNTER 2024-11-16 08:45 | Outpatient (REF) | payer MEDICAID, SELFPAY ==
[2024-11-16 12:33] LABS: TSH reflex Free T4 2.57 uIU/mL (0.32-4.0)
[2024-11-18 00:23] LABS: Thyroglobulin Antibodies <1 IU/mL (< or = 1)
== END 2024-11-16 08:46 | disposition home or self-care (01) ==
LOC: HO.HHCL 08:45
PROVIDERS: Visit Provider Nurse Practitioner Primary Care
DX: R79.89 Other specified abnormal findings of blood chemistry (principal)
CPT/HCPCS: 36415; 84443; 86800

== ENCOUNTER 2025-01-13 10:46 | Outpatient (REF) | payer MEDICAID, SELFPAY ==
--- OUTSIDE RECORDS SUMMARY | 2025-01-13 14:44 | XMS_ITS | Clinical Summary ---
Author Organization [employer] Address [address] [facility] 7t [place] [address] Care Team Providers Care Waiter/Waitress Buffet Name Role Phone Saundra Carolina MERRITT Primary Care Provider [phone] Allergies Active Allergy Reactions Criticality Noted Date [...] can consolidate to use this as SMART (yqlbhe-unlgxawzdqs-bmf-reliever-therapy) Needs new nebulizer for use when sick. Will send. DME rx. Mixed anxiety and depressive disorder 04/30/2012 Encounters Date Type Department Care Team Description 12/13/[address] [address] Fernando Miner [place] February recall 11/12/[address] [address] Love Webber, RN Results 11/11/2024 9:15 AM EST Office Visit [address] [address] Carolina Arguello ANP Moderate persistent asthma without complication (Primary Dx); Encounter for immunization; Non-seasonal allergic rhinitis due to other allergic trigger; Essential hypertension; Mixed anxiety and depressive disorder; Microscopic hematuria; Abnormal thyroid blood test 11/11/2024 Travel 11/08/[address] [address] Kayla Garcia [place] chart prep 11/01/2024 Patient Outreach [address] [address] Carolina Arguello ANP Pre-visit Planning (SDOH Screening negative and Tobacco screening negative) 11/01/[address] [address] Carolina Arguello ANP Prior Authorization from Last [...] 02/08/2025 9:15 AM EDT Office Visit [facility] [address] [place], [place] [phone] Carolina Arguello, ANP [address] [place], [place] [phone] Health Maintenance Due Date Last Done Comments [...] Free T4 2.57 0.32 - 4.0 uIU/mL [facility] Blood Venous blood specimen / Unknown 11/16/2024 8:48 AM EST 11/16/2024 11:39 AM EST Carolina Arguello [facility] BLOOD ORDERABLES Final Resul t Performing Organization Address [facility] Co de Phone Number [facility] [address] [place] [phone] * Thyroglobulin Antibodies (11/16/2024 8:48 AM EST) Thyroglobulin Antibodies <1 < or = 1 IU/mL [facility] Comment:THIS TEST WAS PERFOR MED AT:[facility] [place] [phone] DREW MD 11/16/2024 8:48 AM EST 11/16/2024 11:39 AM EST Carolina Arguello [facility] BLOOD ORDERABLES Final Resul t Performing Organization Address [facility] Co de Phone Number [facility] [address] [place] [phone] * (ABNORMAL) Urinalysis, Complete, with Reflex to Culture (11/11/2024 9:47 AM EST) Color Urine Dark Yellow [facility] Appearance Urine Turbid [facility] PH 6.0 5.0 - 9.0 [facility] Glucose Urine UA Negative Negative mg/dL [facility] Urine Blood Moderate (2+)(A) Negative [facility] Specific [place] - Urine 1.025 1.005 - 1.025 [facility] Urine Protein Trace Neg-Trace mg/dL [facility] Urine Ketones Trace Negative mg/dL [facility] Nitrite Urine Negative Negative [facility] Leukocyte Esterase Urine Trace(A) Negative [facility] RBC Urine 6-10(A) 0 - 2 /HPF [facility] Urine WBC 0-5 0 - 5 /HPF [facility] Urine Squamous Epithelial Cell 0-2 0 - 2 /HPF [facility] Urine Bacteria None Seen None Seen [facility] Hyaline Casts, Urine 3-5 0 - 2 /LPF [facility] Urine 11/11/2024 9:47 AM EST 11/11/2024 4:01 PM EST Narrative [facility] - 11/11/2024 4:08 PM EST Urine, Clean Catch Carolina Arguello ANP LAB URINE ORDERABLES Final Resul t Performing Organization Address [facility] Co de Phone Number [facility] [address] [place] [phone] * Hepatitis C Antibody with Reflex to HCV, RNA, Quantitative, Real-Time PCR (07/01/2024 11:22 AM EDT) Hepatitis C Antibody Nonreactive Nonreactive [facility] Comment:Antibodies to HCV no t detected; does not exclude early acuteHCV infection. Blood Venous blood specimen / Unknown 07/01/2024 11:22 AM EDT 07/01/2024 1:25 PM EDT Carolina Arguello ANP LAB BLOOD ORDERABLES Final Resul t Performing Organization Address [facility] Co de Phone Number [facility] [address] [place] [phone] * HIV-1/2 Antigen and Antibodies, Fourth Generation, with Reflexes (07/01/2024 11:22 AM EDT) HIV AB/AG Nonreactive Nonreactive [facility] Comment:HIV-1 p24 Ag and/or HIV-1/HIV-2 Ab not detected.A test result that is nonreactive does not exclude thepossibility of exposure to or infection with HIV-1 and/orHIV-2. Nonreactive results in this assay for individualswith prior exposure to HIV-1 and/or HIV-2 may be due toantigen and antibody levels that are below the limit ofdetection of this assay.The [employer] HIV Ag/Ab Combo assay result andsupplemental assay results should be interpreted inconjunction with the patient's clinical presentation,history and other laboratory results. If the results areinconsistent with clinical evidence, additional testing issuggested to confirm the result. Blood Venous blood specimen / Unknown 07/01/2024 11:22 AM EDT 07/01/2024 1:25 PM EDT Carolina Arguello [facility] BLOOD ORDERABLES Final Resul t [facility] [address] [place] [phone] * (ABNORMAL) Lipid Panel, Standard (07/01/2024 11:20 AM EDT) Triglycerides 125 <150 mg/dL [facility] Comment:Desirable Triglyceri de: less than 150 mg/dLBorderline High Triglyceride 150-199 mg/dLHigh Triglyceride: 200-499 mg/dLVery High Triglyceride: greater than or equal to 5OO mg/dL Cholesterol 176 <200 mg/dL [facility] Comment:Desirable Cholestero l: less than 200 mg/dLBorderline High Cholesterol: 200-239 mg/dLHigh Cholesterol: greater than 239 mg/dL LDL Cholesterol Calculated 108(H) <100 mg/dL [facility] Comment:Desirable LDL: less than 100 mg/dLNear Optimal/Above Optimal LDL: 110- 129 mg/dLBorderline High LDL: 130-159 mg/dLHigh LDL: 160-189 mg/dLVery High LDL: greater than or equal to 190 mg/dL HDL Cholesterol 43 >40 mg/dL [facility] Comment:Desirable HDL: great er than 40 mg/dL Note: This HDL assay may give artificially low results in patients with liver disease. Blood Venous blood specimen / Unknown 07/01/2024 11:20 AM EDT 07/01/2024 1:24 PM EDT us Carolina MERRITT LAB BLOOD ORDERABLES Final Resul t [facility] [address] [place] [phone] from Last 3 Months or Most Recently Relevant to Health Maintenance Insurance [employer] Care Teams Waiter/Waitress Buffet Relationship Specialty Start Date End Date Carolina Arguello ANP [address] [place] [address] PCP - General Family Medicine 06/15/20
--- OUTSIDE RECORDS SUMMARY | 2025-01-13 14:44 | XMS_ITS | Encounter Summary ---
Author Organization [employer] [facility] Address [address] [place] [address] 7 [place] [address] Care Team Providers Care Casino Duty Manager Name Role Phone Carolina Arguello Primary Care Provider [phone] Reason for Visit * Reason Onset Date Comments Reschedule 03/23/2024 Encounter Details Date Type Department Care Team (Late st Contact Info) Description 03/23/2024 Telephone [facility] MED[facility]INE [address] [place] [address] Carolina Arguello ANP [address] [place] [address] Reschedule Social History Tobacco Use Types Packs/Day [...] Description 02/08/2025 9:15 AM EDT Office Visit [facility] [address] [place] [address] Carolina Arguello ANP [address] [place] [address] documented as of this encounter Visit Diagnoses Not on filedocumented in this encounter Care Teams Casino Duty Manager Relationship Specialty Start Date End Date Carolina Arguello ANP [address] [facility] [place] [address] PCP - General Family Medicine 06/15/20 documented as of this encounter
--- OUTSIDE RECORDS SUMMARY | 2025-01-13 14:44 | XMS_ITS | Clinical Summary ---
Author Organization [facility], Address [address] [place] [address] [place] [phone] Phone Care Team Providers Care Crown Wheel Assembler Name Role Phone Joseph Andrews [facility] Primary Care Provider [phone] Allergies Active Allergy Reactions Criticality Noted Date [...] (#1) 2024 Insurance MEDICAID [place] Care Teams Crown Wheel Assembler Relationship Specialty Start Date End Date Joseph Andrews FNP [address] [place] [address], 3rd [place] [address] PCP - General 09/14/19
--- OUTSIDE RECORDS SUMMARY | 2025-01-13 14:44 | XMS_ITS | Encounter Summary ---
Author Organization [facility] [facility] Address [address] [facility] 7t [place] [address] Care Team Providers Care Barrel Tester And Drainer Name Role Phone Carolina Arguello Primary Care Provider [phone] Reason for Visit * Reason Onset Date Comments Appointment Request 01/19/2024 Encounter Details Date Type Department Care Team ([facility] Contact Info) Description 01/19/2024 Telephone [facility] MEDICINE [address] [place], [place] [phone] Carolina Arguello ANP [address] [place] [address] Appointment Request Social History Tobacco Use Types [...] Arguello above. No answer. LM in both [place] and Czech that we have a message from his [...] Description 02/08/2025 9:15 AM EDT Office Visit [facility] MED[facility]INE [address] [place] [address] Carolina Arguello ANP [address] [place] [address] documented as of this encounter Visit Diagnoses Not on filedocumented in this encounter Care Teams Barrel Tester And Drainer Relationship Specialty Start Date End Date Carolina Arguello ANP [address] [place] [address] PCP - General Family Medicine 06/15/20 documented as of this encounter
--- OUTSIDE RECORDS SUMMARY | 2025-01-13 14:44 | XMS_ITS | Encounter Summary ---
Author Organization [employer] [facility] Address [address] [place] [address] 7 [place] [address] Care Team Providers Care Lvn Name Role Phone Carolina Arguello Primary Care Provider [phone] Reason for Visit * Reason Comments Med Refill Encounter Details Date Type Department Care Team (Late st Contact Info) Description 11/23/2023 Refill [facility] MEDICINE [address] [place] [address] Carolina Arguello ANP [address] [place] [address] Vitamin D deficiency Social History Tobacco Use [...] Description 02/08/2025 9:15 AM EDT Office Visit [facility]INE [address] [place] [address] Carolina Arguello ANP [address] [place] [address] documented as of this encounter Visit Diagnoses Diagnosis Vitamin D deficiency documented in this encounter Care Teams Lvn Relationship Specialty Start Date End Date Carolina Arguello ANP [address] [place] [address] PCP - General Family Medicine 06/15/20 documented as of this encounter
--- OUTSIDE RECORDS SUMMARY | 2025-01-13 14:45 | XMS_ITS | Encounter Summary ---
Author Organization [employer] [facility] Address [address] [place] [address] 7t [place] [address] Care Team Providers Care Incising Machine Operator Name Role Phone Carolina Arguello Primary Care Provider [phone] Reason for Visit * Reason Onset Date Comments Medication Question 12/10/2023 Encounter Details Date Type Department Care Team (Late st Contact Info) Description 12/10/2023 Telephone [facility] MEDICINE [address] [place] [address] Carolina Arguello ANP [address] [place] [address] Medication Question Social History Tobacco Use Types [...] any questions you can contact pt at [phone]. documented in this encounter Plan of Treatment Upcoming Encounters Date Type Department Care Team (Late st Contact Info) Description 02/08/2025 9:15 AM EDT Office Visit [facility] [address] [place] [address] [place] [address] Carolina Arguello ANP [address] [place] [address] documented as of this encounter Visit Diagnoses Not on filedocumented in this encounter Care Teams Incising Machine Operator Relationship Specialty Start Date End Date Carolina Arguello ANP [address] [place] [address] PCP - General Family Medicine 06/15/20 documented as of this encounter
[2025-01-13 18:00] LABS: Urine Cytology See Pathology rpt
== END 2025-01-13 10:47 | disposition home or self-care (01) ==
LOC: HO.LNP 10:46
PROVIDERS: PCP Nurse Practitioner Primary Care; Visit Provider Nurse Practitioner Family
DX: R31.29 Other microscopic hematuria (principal)
CPT/HCPCS: 81003; 88112; 99212

== ENCOUNTER 2025-01-13 10:46 | Outpatient (AMB) | payer MEDICAID, SELFPAY ==
--- NOTE | 2025-01-13 10:50 | MHC.OFFVIS ---
Intake Visit Reasons: hematuria Intake Note: New Patient presents for initial visit for hematuria Urology Medications: none Blood Thinner: none smoker: never Panama Hat Blocker Required: No Accompanied by: Self / Same As Patient Allergies shellfish derived [SHELLFISH DERIVED] Allergy (Severe, Verified 01/13/25 12:11) ANAPHYLAXIS No Known Drug Allergies Allergy (Mild, Verified 01/13/25 12:11) Unknown Medication List - Last Reconciled 01/13/25 by Charlene Schmidt [facility]- budesonide-formoterol 80-4.5 mcg/actuation (Symbicort) 2 puffs inhalation bupropion HCl XL 300 mg PO QAM cetirizine 10 mg PO QAM cholecalciferol (vitamin D3) 50 mcg PO QAM clonazepam 1 mg PO TID PRN diphenhydramine HCl (Benadryl) 50 mg (2 x 25 mg) PO Q6-8H PRN duloxetine 60 mg PO QAM epinephrine (EpiPen 2-Denny) 0.3 mg (0.3 mL) IM Q4H PRN fluticasone propionate 110 mcg/actuation (Flovent HFA) 1 puff inhalation BID hydrochlorothiazide 25 mg PO DAILY ketotifen fumarate 0.025%(0.035%) 1 drp ophthalmic (eye) BID lamotrigine 150 mg PO BEDTIME montelukast (Singulair) 10 mg PO DAILY pantoprazole 40 mg PO BID pravastatin 20 mg PO BEDTIME sertraline 25 mg PO DAILY trazodone 100 mg PO DAILY venlafaxine ER 150 mg PO BEDTIME venlafaxine ER 75 mg PO QAM HPI Comments Details: Billy is a very pleasant 39-year-old male patient of Dr. Arguello. He has a past medical history of allergic rhinitis, hypercholesteremia, hypertension, bipolar disorder, depression, anxiety, GERD, and asthma. He presents to the office today as a new patient for microscopic hematuria. In discussion with the patient today reports having followed up with his PCP and recommendations were made for urology referral as urinalysis noted microscopic hematuria. He denies any previous history of workplace chemical exposure and or nicotine dependence. In office urinalysis results reviewed with the patient today 2+ microscopic hematuria. We discussed at length potential causes of microscopic hematuria. I discussed reasons for blood in the urine may include but are not limited to kidney stones, cancer in the urinary tract, BPH, kidney stone disease or inflammatory conditions of the urinary tract. I have discussed workup to include cystoscopy evaluation. He otherwise denies any bothersome urinary issues. He reports be happy with current voiding parameters. He denies urinary urgency, urinary frequency, incontinence, nocturia, hematuria, dysuria, foul smelling urine, changes to urinary stream, flank pain, fever, and or chills. PFSH Medical History Allergic rhinitis High cholesterol HTN (hypertension), benign Bipolar disorder Papilloma Oropharyngeal dysphagia Depression with anxiety GERD (gastroesophageal reflux disease) Asthma Surgical History H/O esophagogastroduodenoscopy Hx of tonsillectomy Family History Father Asthma Hypertension Mother Asthma Hypertension Brother Alive and well Social History Household Members: Spouse and Children Alcohol intake: never Patient Tobacco Use Status: Never used Tobacco Advance Directives Date on File: 12/11/20 Current occupational status: disabled Review of Systems Const All systems reviewed & are unremarkable except as noted in HPI and below Physical Exam Const General: cooperative, healthy appearing, comfortable, no acute distress, well developed, alert and awake Orientation/consciousness: patient oriented x3 Limitations: no limitations HEENT Head: Yes normal to inspection, Yes normocephalic and Yes atraumatic Ears: hearing grossly normal bilaterally Eyes General: appearance normal, both eyes and all related structures Neck Neck: Yes normal visual inspection and Yes trachea midline Chest Chest palpation & inspection: normal inspection of the chest Resp Effort & Inspection: normal respiratory effort and able to speak in complete sentences Cardio Rate: regular rate GI Inspection: Yes normal to inspection General: Yes no CVA tenderness Back/Spine/Pelvis Back: no CVA tenderness Skin General skin exam: no rashes or lesions noted Neuro General: patient oriented x3 Extrem General: Yes normal to inspection Psych Appearance: grossly normal and well kempt Mental Status: mental status grossly normal Speech and movement: Normal speech and movement present and Clear speech present Affect: normal affect Attitude: cooperative Thought process: Normal thought process present Thought content: Normal thought content present Insight: Fair insight present (Psych) Judgement: Fair judgement present (Psych) Results AMB Urinalysis, Automated UA Leukoctes 0 Katrin/uL Last Edit by Zamzeelauri Boykin on 01/13/25 12:15 UA Nitrite Last Edit by [employer] on 01/13/25 12:15 UA Urobilinogen 0.2 mg/dL Last Edit by [employer] on 01/13/25 12:15 UA Protein 30 mg/dL Last Edit by [employer] on 01/13/25 12:15 UA pH 6.0 Last Edit by [employer] on 01/13/25 12:15 UA Blood 80 Luis Manuel/uL Last Edit by [employer] on 01/13/25 12:15 UA Specific Leslie 1.015 Last Edit by [employer] on 01/13/25 12:15 UA Ketone Last Edit by [employer] on 01/13/25 12:15 UA Bilirubin 1 mg/dL Last Edit by [employer] on 01/13/25 12:15 UA Glucose 0 mg/dL Last Edit by [employer] on 01/13/25 12:15 Results Reviewed Results Reviewed: Laboratory Last Values Urine pH (Auto) 6.0 01/13/25 12:12 Specific Leslie (Auto) 1.015 01/13/25 12:12 Urine Protein (Auto) 30 mg/dL 01/13/25 12:12 Glucose (UA)(Auto) 0 mg/dL 01/13/25 12:12 Urine Blood (Auto) 80 Luis Manuel/uL 01/13/25 12:12 Urine Bilirubin (Auto) 1 mg/dL 01/13/25 12:12 Urine Urobilinogen (Auto) 0.2 mg/dL 01/13/25 12:12 Leukocyte Esterase (Auto) 0 Katrin/uL 01/13/25 12:12 Assessment & Plan Assessment & Plan (1) Microscopic hematuria: Code(s): R31.29 - Other microscopic hematuria Category: Medical Plan In office urinalysis results reviewed the patient today; as noted above; will send for urine cytology. We discussed at length potential causes of microscopic hematuria as well as further workup in risks and benefits of these interventions Patient currently denies any bothersome urinary issues or concerns. He reports be happy with current voiding parameters. Will obtain retroperitoneal ultrasound for further assessment evaluation. Follow-up in 1-3 months with imaging to be completed prior; or sooner with any issues, concerns, and or questions. Orders: Orders US retroperitoneal comp Today R31.29 - Other microscopic hematuria AMB Urinalysis Automated Today Z13.9 - Encounter for screening, unspecified Urine Cytology Today R31.29 - Other microscopic hematuria Patient Instructions: The patient had an opportunity to ask questions regarding the treatment plan. All questions were answered. Physical exam, labs, and imaging were discussed and reviewed in detail. As well as risks, benefits, and discussion of treatment choices. No major barriers to understanding were identified. The patient expressed understanding and agreement with the above treatment plan. The patient was made aware they should contact our office by phone for worsening of their current condition, the appearance of new symptoms, or with any questions or concerns. Compliance is encouraged with any medications and follow up testing that is ordered. It is a privilege to be allowed the opportunity to participate in? your urological care.? Again, if you have any questions or concerns If you have any questions or concerns please do not hesitate to contact me. The office is [phone]. This note is constructed using voice recognition software. While every effort has been made to ensure accuracy rehabilitation nurse errors may have been included. Yours sincerely, CORRIE Keene Coding Level of Care Code New Pt Level 3 (38422) Diagnoses Microscopic hematuria R31.29
--- OUTSIDE RECORDS SUMMARY | 2025-01-13 12:59 | XMS_ITS | Encounter Summary ---
Author Organization [employer] [facility] Address [address] [place] [address] [address] [place] [address] Care Team Providers Care Hand Coremaker Name Role Phone Carolina Arguello Primary Care Provider [phone] Reason for Visit * Reason Comments Med Refill Encounter Details Date Type Department Care Team (Late st Contact Info) Description 11/23/2023 Refill [facility] [address] [place] [phone] Carolina Arguello ANP [address] [place] [phone] Vitamin D deficiency Social History Tobacco Use Types Packs/Day Years Used Date Smoking Tobacco: Never Assessed Sex and Gender Information Value Date Recorded Sex Assigned at Male 09/09/2022 10:17 AM EDT Legal Sex Male 10:17 AM EDT Gender Identity Male 09/09/2022 10:17 AM EDT Sexual Orientation Straight 09/09/2022 10 :17 AM EDT documented as of this encounter Plan of Treatment Upcoming Encounters Date Type Department Care Team (Late st Contact Info) Description 02/08/2025 9:15 AM EDT Office Visit [facility] [address] [place] [phone] Carolina Arguello ANP [address] [place] [phone] documented as of this encounter Visit Diagnoses Diagnosis Vitamin D deficiency documented in this encounter Care Teams Hand Coremaker Relationship Specialty Start Date End Date Carolina Arguello ANP [address] [place] [phone] PCP - General Family Medicine 06/15/20 documented as of this encounter
--- OUTSIDE RECORDS SUMMARY | 2025-01-13 12:59 | XMS_ITS | Encounter Summary ---
Author Organization [facility] Address [address] [place] [address] [address] [place] [address] Care Team Providers Care Shampoo Person Name Role Phone Carolina Arguello Primary Care Provider [phone] Reason for Visit * Reason Onset Date Comments Reschedule 03/23/2024 Encounter Details Date Type Department Care Team (Late st Contact Info) Description 03/23/[address] [facility] [address] [place] [phone] Carolina Arguello ANP [address] [place] [phone] Reschedule Social History Tobacco Use Types Packs/Day Years Used Date Smoking Tobacco: Never Assessed Sex and Gender Information Value Date Recorded Sex Assigned at Male 09/09/2022 10:17 AM EDT Legal Sex Male 10:17 AM EDT Gender Identity Male 09/09/2022 10:17 AM EDT Sexual Orientation Straight 09/09/2022 10 :17 AM EDT documented as of this encounter Miscellaneous Notes * Telephone Encounter - [facility] - 03/23/2024 12:42 PM EDT Tc from pt requesting r/s Physical Extended visit. documented in this encounter Plan of Treatment Upcoming Encounters Date Type Department Care Team (Late st Contact Info) Description 02/08/2025 9:15 AM EDT Office Visit [facility] [address] [place] [phone] Carolina Arguello ANP [address] [place] [address] documented as of this encounter Visit Diagnoses Not on filedocumented in this encounter Care Teams Shampoo Person Relationship Specialty Start Date End Date Carolina Arguello ANP [address] [facility] [place] [address] PCP - General Family Medicine 06/15/20 documented as of this encounter
--- OUTSIDE RECORDS SUMMARY | 2025-01-13 12:59 | XMS_ITS | Clinical Summary ---
Author Organization [employer] Address [address] [facility] 7[address] [place] [address] Care Team Providers Care Geophysical Observer Name Role Phone Saundra Carolina MERRITT Primary Care Provider [phone] Allergies Active Allergy Reactions Criticality Noted Date Comments Shellfish-Derived Products Anaphylaxis High 01/18/20 22 Medications fluticasone (Flonase) 50 MCG/ACT nasal sprayIndications:N on-seasonal allergic rhinitis, unspecified trigger INHALE 1 SPRAY IN EACH NOSTRIL TWICE DAILY 16 g 11 11/15/19 23 Active albuterol (Ventolin HFA) 108 (90 Base) MCG/ACT inhalerIndications :Wheezing INHALE 2 PUFFS BY MOUTH EVERY 4 TO 6 HOURS NEEDED 18 g 5 05/31/20 24 Active Ketotifen Fumarate (Eye Itch Relief) 0.035 % solutionIndication s:Allergic conjunctivitis, unspecified laterality INSTILL 1 DROP INTO THE AFFECTED EYE(S) TWICE DAILY DIRECTED 5 mL 5 05/31/20 24 Active buPROPion XL (Wellbutrin XL) 300 MG 24 hr tablet Take 300 mg by mouth in the morning. 06/08/20 24 Active clonazePAM (KlonoPIN) 2 MG tablet Take 1 tablet by mouth 2 times daily. Active DULoxetine (Cymbalta) [address] capsule Take 60 mg by mouth in the morning. 06/08/20 24 Active lamoTRIgine (LaMICtal) 150 MG tablet Take 1 tablet by mouth at bedtime. 06/08/20 24 Active pantoprazole (ProtoNix) 40 MG EC tablet Take 40 mg by mouth before breakfast. Active traZODone (Desyrel) 100 MG tablet Take 100 mg by mouth if needed at bedtime. Active EPINEPHrine (Epipen) 0.3 MG/0.3ML injection syringeIndications :Shellfish allergy Inject 0.3 mL (0.3 mg) as directed 1 (one) time if needed for anaphylaxis for up to 1 dose. Inject into upper leg. Call 911 after use. 2 each 1 06/29/20 24 Active pravastatin (Pravachol) 20 MG tabletIndications: Hyperlipidemia, unspecified hyperlipidemia type TAKE 1 TABLET BY MOUTH EVERY EVENING 90 tablet 3 07/29/20 24 Active montelukast (Singulair) 10 MG tabletIndications: Uncomplicated asthma, unspecified asthma severity, unspecified whether persistent TAKE 1 TABLET BY MOUTH AT BEDTIME 90 tablet 1 07/29/20 24 Active cetirizine (ZyrTEC) 10 MG tabletIndications: Non-seasonal allergic rhinitis due to other allergic trigger TAKE 1 TABLET BY MOUTH EVERY MORNING 90 tablet 1 07/29/20 24 Active hydroCHLOROthiazid e (HYDRODiuril) 25 MG tabletIndications: Benign essential HTN TAKE 1 TABLET BY MOUTH EVERY MORNING 90 tablet 1 07/29/20 24 Active cholecalciferol VITAMIN D (Vitamin D-3) 50 MCG (2000 UT) tabletIndications: Vitamin D deficiency TAKE 1 TABLET BY MOUTH EVERY MORNING 90 tablet 1 09/06/20 24 Active budesonide-formote rol (Symbicort) 160-4.5 MCG/ACT inhalerIndications :Moderate persistent asthma without complication Inhale 2 puffs in the morning and at bedtime. Rinse mouth with water after use to reduce aftertaste and incidence of candidiasis. Do not swallow. 1 each 11/11/19 026 Active Active Problems Problem Noted Date Diagnosed Date Gastroesophageal reflux disease without esophagi tis 07/15/2024 Microscopic hematuria 01/22/2024 Essential hypertension 05/17/2015 Overview (06/29/2024): Cont hydrochlorothiazide 25mg daily Goal </= 130/80. Encourage low salt diet, regular exercise, home BP monitoring, compliance with medications. Call clinic if BP is frequently >150/90 Go to ED/call 911 if > 170/100 and having sx such as ALONSO, visual changes, chest pain, SOB Last renal function: Lab Results Component Value Date BUN 12 10/23/2021 Lab Results Component Value Date MICROALBCREA 3 10/23/2021 No results found for: MICROALBCREU Allergic rhinitis 04/30/2012 Anxiety state 04/30/2012 Moderate persistent asthma without complication 04/30/2012 Overview (11/11/2024): Avoid asthma triggers if possible. Continue albuterol q4-6 hrs PRN wheezing/SOB. Let us know if using albuterol >2x/wk. Using albuterol 2-3x/wk Step up therapy w/ increased dose of symbocort, can consolidate to use this as SMART (mzhmfv-[id number]-zlv-reliever-therapy) Needs new nebulizer for use when sick. Will send. DME rx. Mixed anxiety and depressive disorder 04/30/2012 Encounters Date Type Department Care Team Description 12/13/[address] [address] Fernando Miner [place] February recall 11/12/[address] [address] Love Webber, RN Results 11/11/2024 9:15 AM EST Office Visit [address] [address] Carolina Arguello ANP Moderate persistent asthma without complication (Primary Dx); Encounter for immunization; Non-seasonal allergic rhinitis due to other allergic trigger; Essential hypertension; Mixed anxiety and depressive disorder; Microscopic hematuria; Abnormal thyroid blood test 11/11/2024 Travel 11/08/[address] [address] Kayla Garcia [place] chart prep 11/01/2024 Patient Outreach [address] [address] Carolina Arguello ANP Pre-visit Planning (SDOH Screening negative and Tobacco screening negative) 11/01/[address] [address] Carolina Arguello ANP Prior Authorization from Last 3 Months Immunizations Name Administration Dates Next Due Influenza injectable quadriv alent IIV4 with preservative 07/25/2016,10/02/2015 Influenza injectable quadriv alent preservative free 08/23/2021,10/19/2020,08/21/2017 Influenza, IIV3, injectable 07/27/2014,0 08/07/2010,08/18/2009,08/28,10/23/2006,11/15/2005 Influenza, Split (incl. gilberto fied surface antigen) 09/03/2013,12/14/2012 Influenza, seasonal, injecta ble, preservative free 11/11/2024 Pneumococcal Conjugate PCV 20 11/11/2024 Pneumococcal Polysaccharide PPSV23 12/14/2012 Tdap 10/19/2021,09/03/2013 Social History Tobacco Use Types Packs/Day Years Used Date Smoking Tobacco: Never Smokeless Tobacco: Never Tobacco Cessation:Counseling Given: Not Answered Alcohol Answer Date Recorded How often do you have a drink containing alcohol ? 0 06/29/2024 How many drinks containing a lcohol do you have on a typical day when you are drinking? 0 06/29/2024 How often do you have six or more drinks on one occasion? 0 06/29/2024 Housing Stability Answer Date Recorded What is your housing situation today? I have janes katz 11/01/[address] you li ve. Do you have problems with any of the following? None of the above 11/01/2024 Food Insecurity Answer Date Recorded Within the past 12 months, y ou worried that your food would run out before you got money to buy more: Never True 11/01/2024 Within the past 12 months,th e food you bought just didn't last and you didn't have enough money to get more: Never True Transportation Answer Date Recorded In the past 12 months, has l ack of transportation kept you from medical appts, meetings, work or from getting things needed for daily living? No 11/01/2024 Utilities Answer Date Recorded In the past 12 months, has t he electric, gas, oil or water company threatened to shut off services in your home? No 11/01/2024 Depression Answer Date Recorded Patient Health Questionnaire-2 Score 4 06/29/2024 Internet Access Answer Date Recorded Internet Access Q1 Yes 11/01/2024 Internet Access Q2 Not on file 11/01/2024 Sex and Gender Information Value Date Recorded Sex Assigned at Male 09/09/2022 10:17 AM EDT Legal Sex Male 10:17 AM EDT Gender Identity Male 09/09/2022 10:17 AM EDT Sexual Orientation Straight 09/09/2022 10 :17 AM EDT Last Filed Vital Signs Vital Sign Reading Time Taken Comments Blood Pressure 140/86 11/11/2024 9:05 AM EST Pulse 86 11/11/2024 9:05 AM EST Temperature 36.4 ??C (97.5 ??F) 11/11/2024 9:05 AM ES T Respiratory Rate 18 11/11/2024 9:05 AM EST Oxygen Saturation 97% 11/11/2024 9:05 AM EST Inhaled Oxygen Concentration - - Weight 82.8 kg (182 lb 8 oz) 11/11/2024 9:05 AM EST Height 160 cm (5' 3 ) 08/16/2024 11:15 AM EDT Body Mass Index 32.33 08/16/2024 11:15 AM EDT Plan of Treatment Upcoming Encounters Date Type Department Care Team (Late st Contact Info) Description 02/08/2025 9:15 AM EDT Office Visit [facility] [address], [place] [phone] Carolina Arguello, ANP [address] [place], [place] [phone] Health Maintenance Due Date Last Done Comments Family Planning (PISQ) 1998 Hepatitis B Vaccines (1 of 3 - 19+ 3-dose series) 2002 COVID-19 Vaccine (2023- season) 2024 05/15/2021, 04/17/2021 Alcohol/Substance Use Screening 06/29/2025 06/29/2024 Depression Screening 06/29/2025 06/29/2024, 06/29/20 SDOH Screening 11/01/2025 11/01/2024 Tobacco Screening 11/11/2025 11/11/2024 Lipid Panel 07/01/2029 07/01/2024, 10/10, 12/01/2020 DTaP/Tdap/Td Vaccines (3 - Td or Tdap) 10/19/2031 10/19/2021, 09/03/2013 Zoster Vaccines (1 of 2) 2033 RSV Patients and Patients Aged 60 years or older (1 - 1-dose 75+ series) 2058 HIV Screening Completed 07/01/2024, 10/23/2021 Hepatitis C Screening Completed 07/01/2024, 021 Influenza Vaccine Completed 11/11/2024, , 10/19/2020, Additional history exists Pneumococcal Vaccine: Pediatrics (0 to 5 Years) and At-Risk Patients (6 to 49) Years) Completed 11/11/2024, 12/14/2012 HIB Vaccines Aged Out No longer eligi ble based on patient's age to complete this topic HPV Vaccines Aged Out No longer eligi ble based on patient's age to complete this topic Hepatitis A Vaccines Aged Out No long er eligible based on patient's age to complete this topic IPV Vaccines Aged Out No longer eligi ble based on patient's age to complete this topic Meningococcal Vaccine Aged Out No heather connor eligible based on patient's age to complete this topic RSV under 20 months Aged Out No longe r eligible based on patient's age to complete this topic Rotavirus Vaccines Aged Out No longer eligible based on patient's age to complete this topic Procedures Procedure Name Priority Date/Time Associated Diagnosis Comments THYROGLOBULIN ANTIBODIES Routine 11/16/2024 8:48 AM EST TSH W/REFLEX TO FT4 Routine 11/16/2024 8 :48 AM EST Abnormal thyroid blood test URINALYSIS, COMPLETE, WITH REFLEX TO CULTURE Routine 11/11/2024 9:47 AM EST Microscopic hematuria HEPATITIS C AB W/REFL TO HCV RNA, QN, PCR Routine 07/01/2024 11:22 AM EDT Routine screening for STI (sexually transmitted infection) HIV 1/2 ANTIGEN/ANTIBODY, FOURTH GENERATION W/RFL Routine 07/01/2024 11:22 AM EDT Routine screening for STI (sexually transmitted infection) LIPID PANEL, STANDARD Routine 07/01/2024 11:20 AM EDT Healthcare maintenance from Last 3 Months or Most Recently Relevant to Health Maintenance Results * TSH W/Reflex to FT4 (11/16/2024 8:48 AM EST) TSH reflex Free T4 2.57 0.32 - 4.0 uIU/mL [facility] Blood Venous blood specimen / Unknown 11/16/2024 8:48 AM EST 11/16/2024 11:39 AM EST Carolina Arguello [facility] BLOOD ORDERABLES Final Resul t Performing Organization Address [facility] Co de Phone Number [facility] [address] [place] [phone] * Thyroglobulin Antibodies (11/16/2024 8:48 AM EST) Thyroglobulin Antibodies <1 < or = 1 IU/mL [facility] Comment:THIS TEST WAS PERFOR MED AT:[facility] [place] [id number] DREW MD 11/16/2024 8:48 AM EST 11/16/2024 11:39 AM EST Carolina Arguello [facility] BLOOD ORDERABLES Final Resul t Performing Organization Address [facility] Co de Phone Number [facility] [address] [place] [phone] * (ABNORMAL) Urinalysis, Complete, with Reflex to Culture (11/11/2024 9:47 AM EST) Color Urine Dark Yellow [facility] Appearance Urine Turbid [facility] PH 6.0 5.0 - 9.0 [facility] Glucose Urine UA Negative Negative mg/dL [facility] Urine Blood Moderate (2+)(A) Negative [facility] Specific [place] - Urine 1.025 1.005 - 1.025 [facility] Urine Protein Trace Neg-Trace mg/dL [facility] Urine Ketones Trace Negative mg/dL [facility] Nitrite Urine Negative Negative [facility] Leukocyte Esterase Urine Trace(A) Negative [facility] RBC Urine 6-10(A) 0 - 2 /HPF [facility] Urine WBC 0-5 0 - 5 /HPF [facility] Urine Squamous Epithelial Cell 0-2 0 - 2 /HPF [facility] Urine Bacteria None Seen None Seen [facility] Hyaline Casts, Urine 3-5 0 - 2 /LPF [facility] Urine 11/11/2024 9:47 AM EST 11/11/2024 4:01 PM EST Narrative [facility] - 11/11/2024 4:08 PM EST Urine, Clean Catch Carolina Arguello ANP LAB URINE ORDERABLES Final Resul t Performing Organization Address [facility] Co de Phone Number [facility] [address] [place] [phone] * Hepatitis C Antibody with Reflex to HCV, RNA, Quantitative, Real-Time PCR (07/01/2024 11:22 AM EDT) Hepatitis C Antibody Nonreactive Nonreactive [facility] Comment:Antibodies to HCV no t detected; does not exclude early acuteHCV infection. Blood Venous blood specimen / Unknown 07/01/2024 11:22 AM EDT 07/01/2024 1:25 PM EDT Carolina Arguello ANP LAB BLOOD ORDERABLES Final Resul t Performing Organization Address [facility] Co de Phone Number [facility] [address] [place] [phone] * HIV-1/2 Antigen and Antibodies, Fourth Generation, with Reflexes (07/01/2024 11:22 AM EDT) HIV AB/AG Nonreactive Nonreactive [facility] Comment:HIV-1 p24 Ag and/or HIV-1/HIV-2 Ab not detected.A test result that is nonreactive does not exclude thepossibility of exposure to or infection with HIV-1 and/orHIV-2. Nonreactive results in this assay for individualswith prior exposure to HIV-1 and/or HIV-2 may be due toantigen and antibody levels that are below the limit ofdetection of this assay.The [employer] HIV Ag/Ab Combo assay result andsupplemental assay results should be interpreted inconjunction with the patient's clinical presentation,history and other laboratory results. If the results areinconsistent with clinical evidence, additional testing issuggested to confirm the result. Blood Venous blood specimen / Unknown 07/01/2024 11:22 AM EDT 07/01/2024 1:25 PM EDT Carolina Arguello [facility] BLOOD ORDERABLES Final Resul t [facility] [address] [place] [phone] * (ABNORMAL) Lipid Panel, Standard (07/01/2024 11:20 AM EDT) Triglycerides 125 <150 mg/dL [facility] Comment:Desirable Triglyceri de: less than 150 mg/dLBorderline High Triglyceride 150-199 mg/dLHigh Triglyceride: 200-499 mg/dLVery High Triglyceride: greater than or equal to 5OO mg/dL Cholesterol 176 <200 mg/dL [facility] Comment:Desirable Cholestero l: less than 200 mg/dLBorderline High Cholesterol: 200-239 mg/dLHigh Cholesterol: greater than 239 mg/dL LDL Cholesterol Calculated 108(H) <100 mg/dL [facility] Comment:Desirable LDL: less than 100 mg/dLNear Optimal/Above Optimal LDL: 110- 129 mg/dLBorderline High LDL: 130-159 mg/dLHigh LDL: 160-189 mg/dLVery High LDL: greater than or equal to 190 mg/dL HDL Cholesterol 43 >40 mg/dL [facility] Comment:Desirable HDL: great er than 40 mg/dL Note: This HDL assay may give artificially low results in patients with liver disease. Blood Venous blood specimen / Unknown 07/01/2024 11:20 AM EDT 07/01/2024 1:24 PM EDT us Carolina MERRITT LAB BLOOD ORDERABLES Final Resul t [facility] [address] [place] [phone] from Last 3 Months or Most Recently Relevant to Health Maintenance Insurance [employer] Care Teams Geophysical Observer Relationship Specialty Start Date End Date Carolina Arguello ANP [address] [place] [address] PCP - General Family Medicine 06/15/20
--- OUTSIDE RECORDS SUMMARY | 2025-01-13 12:59 | XMS_ITS | Clinical Summary ---
Author Organization [facility], Address [address] [place] [address] [place] [phone] Phone Care Team Providers Care Coronary Clinical Specialist Name Role Phone Joseph Andrews [facility] Primary Care Provider Allergies Active Allergy Reactions Criticality Noted Date Comments Shellfish-Derived Products 2 Medications albuterol HFA (PROAIR HFA) 108 (90 Base) MCG/ACT inhaler Inhale 2 puffs 4 (four) times a day Active cetirizine (ZyrTEC ALLERGY) 10 MG tablet Take 1 tablet by mouth 1 (one) time each day Active clonazePAM (KlonoPIN) 2 MG tablet Take 1 tablet by mouth 2 (two) times a day Active escitalopram (LEXAPRO) 10 MG tablet Take 1 tablet by mouth 1 (one) time each day Active hydroCHLOROthi azide (HYDRODIURIL) 25 MG tablet Take 1 tablet by mouth 1 (one) time each day Active montelukast (SINGULAIR) 10 MG tablet Take 1 tablet by mouth 1 (one) time each day Active pravastatin (PRAVACHOL) 20 MG tablet Take 1 tablet by mouth 1 (one) time each day Active risperiDONE (RISPERDAL) 3 MG tablet Take 1 tablet by mouth 1 (one) time each day Active venlafaxine XR (EFFEXOR-XR) 150 MG 24 hr capsule TAKE 2 CAPSULES BY MOUTH ONCE DAILY IN THE MORNING 09/07/20 21 Active traZODone (DESYREL) 100 MG tablet Take 100 mg by mouth at night if needed 09/07/20 21 Active lamoTRIgine (LaMICtal) 100 MG tablet Take 100 mg by mouth at bed time 09/07/20 21 Active EPINEPHrine (EPIPEN) 0.3 MG/0.3ML injection syringe INJECT INTRAMUSCULARLY DIRECTED ON PACKAGE AND GO TO EMERGENCY ROOM 08/23/20 21 Active clonazePAM (KlonoPIN) 1 MG tablet Take 1 mg by mouth 3 (three) times a day if needed 09/10/20 21 Active pantoprazole (PROTONIX) 40 MG EC tablet Take 40 mg by mouth every morning and evening 11/13/19 22 Active famotidine (PEPCID) 40 MG tablet Take 40 mg by mouth at bed time 04/02/20 22 Active Active Problems Problem Noted Date Diagnosed Date Essential hypertension Microscopic hematuria Resolved Problems Problem Noted Date Diagnosed Date Resolved Date Dyslipidemia 02/25/2020 Family History Medical History Relation Comments Asthma Father Hypertension Mother Relation Status Comments Father Mother Social History Tobacco Use Types Packs/Day Years Used Date Smoking Tobacco: Never Smokeless Tobacco: Never Alcohol Use Standard Drinks/Week Comments No 0 (1 standard drink = 0.6 oz pur e alcohol) Sex and Gender Information Value Date Recorded Sex Assigned at Not on file Legal Sex Male 4:31 PM EST Gender Identity Not on file Sexual Orientation Not on file Last Filed Vital Signs Vital Sign Reading Time Taken Comments Blood Pressure 110/60 08/02/2019 12:00 PM EDT Pulse - - Temperature - - Respiratory Rate - - Oxygen Saturation - - Inhaled Oxygen Concentration - - Weight 80.7 kg (178 lb) 08/02/2019 12:00 PM EDT Height 162.6 cm (5' 4 ) 08/02/2019 12:00 PM EDT Body Mass Index 30.55 08/02/2019 12:00 PM EDT Plan of Treatment Health Maintenance Due Date Last Done Comments Pneumococcal Vaccine: Pediat rics (0 to 5 Years) and At-Risk Patients (6 to 64 Years) (1 of 2 - PCV) 1989 Hepatitis B Vaccine (1 of 3 - 19+ 3-dose series) 02/27 Influenza Vaccine (#1) 2024 Insurance MEDICAID [place] Care Teams Coronary Clinical Specialist Relationship Specialty Start Date End Date Joseph Andrews FNP [address] [place] [address], [address] [place] [address] PCP - General 09/14/19
--- OUTSIDE RECORDS SUMMARY | 2025-01-13 12:59 | XMS_ITS | Encounter Summary ---
Author Organization [facility] Address [address] [place] [address] [address] [place] [address] Care Team Providers Care Manager Procurement Name Role Phone Carolina Arguello Primary Care Provider [phone] Reason for Visit * Reason Onset Date Comments Medication Question 12/10/2023 Encounter Details Date Type Department Care Team (Late st Contact Info) Description 12/10/2023 Telephone [facility] [address] [place] [phone] Carolina Arguello ANP [address] [place] [address] Medication Question Social History Tobacco Use Types Packs/Day Years Used Date Smoking Tobacco: Never Assessed Sex and Gender Information Value Date Recorded Sex Assigned at Male 09/09/2022 10:17 AM EDT Legal Sex Male 10:17 AM EDT Gender Identity Male 09/09/2022 10:17 AM EDT Sexual Orientation Straight 09/09/2022 10 :17 AM EDT documented as of this encounter Miscellaneous Notes * Telephone Encounter - Jose Jaramillo - 12/10/2023 4:38 PM EST Tc from pt requesting a ointment for rash. Pt stated ointment was prescribed by pcp but is unsure on the name. If any questions you can contact pt at [phone]. documented in this encounter Plan of Treatment Upcoming Encounters Date Type Department Care Team (Late st Contact Info) Description 02/08/2025 9:15 AM EDT Office Visit [facility] [address] [place] [address] [place] [phone] Carolina Arguello ANP [address] [place] [address] documented as of this encounter Visit Diagnoses Not on filedocumented in this encounter Care Teams Manager Procurement Relationship Specialty Start Date End Date Carolina Arguello ANP [address] [place] [address] PCP - General Family Medicine 06/15/20 documented as of this encounter
--- OUTSIDE RECORDS SUMMARY | 2025-01-13 12:59 | XMS_ITS | Encounter Summary ---
Author Organization [employer] [facility] Address [address] [facility] [address] [place] [address] Care Team Providers Care Clinical Rehab Liaison Name Role Phone Carolina Arguello Primary Care Provider [phone] Reason for Visit * Reason Onset Date Comments Appointment Request 01/19/2024 Encounter Details Date Type Department Care Team ([facility] Contact Info) Description 01/19/2024 Telephone [facility] MEDICINE [address], [place] [phone] Carolina Arguello ANP [address] [place] [address] Appointment Request Social History Tobacco Use Types Packs/Day Years Used Date Smoking Tobacco: Never Assessed Sex and Gender Information Value Date Recorded Sex Assigned at Male 09/09/2022 10:17 AM EDT Legal Sex Male 10:17 AM EDT Gender Identity Male 09/09/2022 10:17 AM EDT Sexual Orientation Straight 09/09/2022 10 :17 AM EDT documented as of this encounter Miscellaneous Notes * Telephone Encounter - Kenzie Camacho RN - 01/22/2024 3:19 PM EDT Received email from pt's psychiatrist, pt reports poor sleep and snoring, feeling out of breath andanxious when he wakes up in the night and feeling tired during the day. I recommend we send him to a sleep specialist for evaluation. Please outreach pt to offer and let me know if he agrees. if number on chart is incorrect, please send letter requesting he contact us w/ new phone #. May need triage for asthma as well - if he is using his albuterol more than twice weekly, would recommend sick visit to assess control. Thanks. TC placed to patient regarding message from Chip Arguello above. No answer. LM in both Kosovan and Setswana that we have a message from his PCP and would like to speak with him further and to please call us back. Routing back to Green Team Nurses to try again later. * Telephone Encounter - Court Bender - 01/19/2024 3:09 PM EDT Tc from pt requesting PE appt, just as a routine appt, no concerns at the moment. documented in this encounter Plan of Treatment Upcoming Encounters Date Type Department Care Team (Late st Contact Info) Description 02/08/2025 9:15 AM EDT Office Visit [facility] MEDICINE [address] [place] [address] Carolina Arguello ANP [address] [place] [address] documented as of this encounter Visit Diagnoses Not on filedocumented in this encounter Care Teams Clinical Rehab Liaison Relationship Specialty Start Date End Date Carolina Arguello ANP [address] [place] [address] PCP - General Family Medicine 06/15/20 documented as of this encounter
== END 2025-01-13 11:23 | disposition home or self-care (01) ==
PROVIDERS: PCP Nurse Practitioner Primary Care; Visit Provider Nurse Practitioner Family
DX: R31.29 Other microscopic hematuria (principal); Z13.9 Encounter for screening, unspecified
CPT/HCPCS: 99203

== ENCOUNTER 2025-03-31 10:07 | Outpatient (REF) | payer MEDICAID, SELFPAY ==
--- NOTE | ~2025-03-31 | US_ITS ---
EXAMINATION: US RETROPERITONEUM HISTORY: R31.29 - Other microscopic hematuria TECHNIQUE: Real-time grayscale ultrasound imaging of the kidneys was performed and images were reviewed. COMPARISON: Correlation is made with a CT of the abdomen with contrast dated 10/14/2018. FINDINGS: Right kidney: The right kidney measures 11.4 x 6.0 x 4.6 cm. Renal parenchymal echotexture and thickness are normal. There are no masses. Punctate echogenic foci may represent vascular calcifications. There is no hydronephrosis or definite renal calculi. Left Kidney: The left kidney measures 11.4 x 6.7 x 4.6 cm. Renal parenchymal echotexture and thickness are normal. There is an 8 x 9 x 11 mm upper pole cyst. There is no hydronephrosis or renal calculi. The urinary bladder is unremarkable. Bilateral ureteral jets are identified. Before voiding, the urinary bladder measured 14.1 x 7.9 x 9.7 cm, for an estimated volume of 561 mL. After voiding, the urinary bladder measured 6.9 x 2.7 x 4.6 cm, for an estimated volume of 45 mL. The prostate measures 2.5 x 3.1 x 2.9 cm. US/US retroperitoneal comp IMPRESSION: 11 mm left upper pole renal cyst. Post void bladder residual of 45 mL. Electronically signed by: Akira Miller MD 03/31/2025 11:22 AM EDT
--- OUTSIDE RECORDS SUMMARY | 2025-03-31 10:28 | XMS_ITS | Encounter Summary ---
Author Organization [employer] [facility] Address [address] [place] [address] Care Team Providers Care Relaster Name Role Phone Carolina Arguello Primary Care Provider [phone] Reason for Visit * Reason Comments Med Refill Encounter Details Date Type Department Care Team (Late st Contact Info) Description 11/23/2023 Refill [facility] MEDICINE [address] [place] [address] Carolina Arguello ANP [address] [place] [address] Vitamin D deficiency Social History Tobacco Use [...] Care Team (Late st Contact Info) Description 05/12/2025 10:15 AM EDT Office Visit [facility] MEDICINE [address] [place] [address] Carolina Arguello ANP [address] [place] [address] documented as of this encounter Visit Diagnoses Diagnosis Vitamin D deficiency documented in this encounter Care Teams Relaster Relationship Specialty Start Date End Date Carolina Arguello ANP [address] [place] [address] PCP - General Family Medicine 06/15/20 documented as of this encounter
--- OUTSIDE RECORDS SUMMARY | 2025-03-31 10:28 | XMS_ITS | Encounter Summary ---
Author Organization [employer] [facility] Address [address] [place] [address] [address] [address] Care Team Providers Care Radiology Special Procedure Tech Name Role Phone Carolina Arguello Primary Care Provider [phone] Reason for Visit * Reason Onset Date Comments Reschedule 03/23/2024 Encounter Details Date Type Department Care Team (Late st Contact Info) Description 03/23/2024 Telephone [facility] MEDICINE [address] [place] [address] Carolina Arguello ANP [address] [place] [address] Reschedule Social History Tobacco Use Types Packs/Day [...] Description 05/12/2025 10:15 AM EDT Office Visit [facility] [address] [place] [phone] Carolina Arguello ANP [address] [place] [address] documented as of this encounter Visit Diagnoses Not on filedocumented in this encounter Care Teams Radiology Special Procedure Tech Relationship Specialty Start Date End Date Carolina Arguello ANP [address] [facility] [place] [address] PCP - General Family Medicine 06/15/20 documented as of this encounter
--- OUTSIDE RECORDS SUMMARY | 2025-03-31 10:28 | XMS_ITS | Encounter Summary ---
Author Organization [employer] Address [address] [place] [address] [address] [place] [address] Care Team Providers Care Pharmacy Order Entry Technician Name Role Phone Carolina Arguello Primary Care Provider [phone] Reason for Visit * Reason Onset Date Comments Medication Question 12/10/2023 Encounter Details Date Type Department Care Team (Late st Contact Info) Description 12/10/2023 Telephone [facility] MEDICINE [address] [place] [address] Carolina Arguello ANP [address] [place] [address] Medication Question Social History Tobacco Use Types [...] any questions you can contact pt at [phone]. documented in this encounter Plan of Treatment Upcoming Encounters Date Type Department Care Team (Late st Contact Info) Description 05/12/2025 10:15 AM EDT Office Visit [facility]ICINE [address] [place] [address] Carolina Arguello ANP [address] [place] [address] documented as of this encounter Visit Diagnoses Not on filedocumented in this encounter Care Teams Pharmacy Order Entry Technician Relationship Specialty Start Date End Date Carolina Arguello ANP [address] [place] [address] PCP - General Family Medicine 06/15/20 documented as of this encounter
--- OUTSIDE RECORDS SUMMARY | 2025-03-31 10:28 | XMS_ITS | Clinical Summary ---
Author Organization [facility], Address [address] [place] [address] [place] [address] Phone Care Team Providers Care Entry Level Management Name Role Phone Joseph Andrews [facility] Primary Care Provider [phone] Allergies Active Allergy Reactions Criticality Noted Date [...] Health Maintenance Due Date Last Done Comments Hepatitis B Vaccine (1 of 3 - 19+ 3-dose series) 2002 Influenza Vaccine (Season Ended) 2025 Pneumococcal Vaccine: Peds ( 0 to 5 Years) and At-Risk Patients (6 to 49 Years) Aged Out No longer eligible b ased on patient's age to complete this topic Insurance Medicaid [place] Care Teams Entry Level Management Relationship Specialty Start Date End Date Joseph Andrews FNP [address] [place] [address], 3rd [place] [address] PCP - General 09/14/19
--- OUTSIDE RECORDS SUMMARY | 2025-03-31 10:28 | XMS_ITS | Encounter Summary ---
Author Organization [employer] Address [address] [facility] 7t [place] [address] Care Team Providers Care Guest Services Manager Name Role Phone Carolina Arguello Primary Care Provider Reason for Visit * Reason Onset Date Comments Appointment Request 01/19/2024 Encounter Details Date Type Department Care Team ([facility] Contact Info) Description 01/19/2024 Telephone [facility] MEDICINE [address] [place] [address] Carolina Arguello ANP [address] [place] [address] Appointment Request Social History Tobacco Use Types [...] Arguello above. No answer. LM in both [place]an and [place] that we have a message from his [...] Description 05/12/2025 10:15 AM EDT Office Visit [facility] MEDICINE [address] [place] [address] Carolina Arguello ANP [address] [place] [address] documented as of this encounter Visit Diagnoses Not on filedocumented in this encounter Care Teams Guest Services Manager Relationship Specialty Start Date End Date Carolina Arguello ANP [address] [place] [address] PCP - General Family Medicine 06/15/20 documented as of this encounter
--- OUTSIDE RECORDS SUMMARY | 2025-03-31 10:28 | XMS_ITS | Clinical Summary ---
Author Organization [employer] Address [address] [facility] [address] [place] [address] Care Team Providers Care Welder First Class Name Role Phone Saundra Mayra MERRITT Primary Care Provider [phone] Allergies Active Allergy Reactions Criticality Noted Date [...] EVENING 90 tablet 3 07/29/20 24 Active budesonide-formote rol (Symbicort) 160-4.5 MCG/ACT inhalerIndications :Moderate persistent asthma without complication Inhale 2 puffs in the morning and at bedtime. Rinse mouth with water after use to reduce aftertaste and incidence of candidiasis. Do not swallow. 1 each 11/11/19 25 026 Active cetirizine (ZyrTEC) 10 MG tabletIndications: Non-seasonal allergic rhinitis due to other allergic trigger TAKE 1 TABLET BY MOUTH EVERY EVENING 90 tablet 1 01/21/20 25 Active hydroCHLOROthiazid e (HYDRODiuril) 25 MG tabletIndications: Benign essential HTN TAKE 1 TABLET BY MOUTH EVERY MORNING 90 tablet 1 01/21/20 25 Active montelukast (Singulair) 10 MG tabletIndications: Uncomplicated asthma, unspecified asthma severity, unspecified whether persistent TAKE 1 TABLET BY MOUTH AT BEDTIME 90 tablet 1 01/21/20 25 Active cholecalciferol VITAMIN D (Vitamin D-3) 50 MCG (1999 UT) tabletIndications: Vitamin D deficiency TAKE 1 TABLET BY MOUTH EVERY MORNING 90 tablet 1 02/17/20 25 Active Active Problems Problem Noted Date Diagnosed [...] can consolidate to use this as SMART (yigqrd-lotctonlmlf-htz-reliever-therapy) Needs new nebulizer for use when sick. Will send. DME rx. Mixed anxiety and depressive disorder 04/30/2012 Encounters Date Type Department Care Team Description 03/10/2025 Patient Outreach [facility] [address] [place] [address] Mayra Myers ANP Care Coordination (C3/CM Outreach) 02/18/2025 Patient Outreach [address] [address] Mayra Myers ANP Care Coordintaion (Outreach) 02/16/[address] [address] Mayra Myers ANP Vitamin D deficiency 02/15/[address] [address] Mayra Myers ANP May02/08/2025 9:15 AM EDT Office Visit [address] [address] Mayra Myers ANP Essential hypertension (Primary Dx); Mixed anxiety and depressive disorder; Gastroesophageal reflux disease without esophagitis; Halitosis; Routine screening for STI (sexually transmitted infection) 02/08/2025 Travel 02/02/2025 Patient Outreach [address] [address] Mayra Myers ANP Care Coordination (Outreach) 01/31/2025 Patient Outreach [address] [address] Mayra Myers ANP Pre-visit Planning (Pre-visit planning - LVM ) 01/25/2025 Patient Outreach [facility] [address] [place] [address] Mayra Myers ANP Care Coordination (Outreach) 01/21/2025 Population Health Risk Score Community Care [facility] (C3) [address] [phone] Provider, Population Health Generic 01/20/2025 Refill [facility] [address] [place], [place] [phone] Mayra Myers ANP Non-seasonal allergic rhinitis due to other allergic trigger; Benign essential HTN; Uncomplicated asthma, unspecified asthma severity, unspecified whether persistent 01/19/2025 Patient Outreach [facility] [address] [place], [place] [phone] Mayra Myers ANP Care Coordination (Outreach) 01/19/2025 Telephone [facility] [address] [place] [address] Mayra Myers ANP Care Management (C3CM- chart review) from Last 3 Months Immunizations Immunization Administration Dates Next Due Influenza injectable quadriv [...] Sign Reading Time Taken Comments Blood Pressure 137/88 02/08/2025 9:16 AM EDT Pulse 100 02/08/2025 9:16 AM EDT Temperature 36.6 ??C (97.9 ??F) 02/08/2025 9:16 AM ED T Respiratory Rate 16 02/08/2025 9:16 AM EDT Oxygen Saturation 98% 02/08/2025 9:16 AM EDT Inhaled Oxygen Concentration - - Weight 85.5 kg (188 lb 9.6 oz) 02/08/2025 9:16 A M EDT Height 160 cm (5' 3 ) 08/16/2024 11:15 AM EDT Body Mass Index 33.41 08/16/2024 11:15 AM EDT Plan of Treatment Upcoming Encounters Date Type Department Care Team (Late st Contact Info) Description 05/12/2025 10:15 AM EDT Office Visit [facility] [address] [place] [address] Mayra Myers ANP [address] [place] [address] Health Maintenance Due Date Last Done Comments Disability Screening 1985 Family Planning (PISQ) 1998 Hepatitis B Vaccines (1 of 3 - 19+ 3-dose series) 2002 COVID-19 Vaccine (3 - 2023- season) 2024 05/15/2021, 04/17/2021 Alcohol/Substance Use Screening 06/29/2025 06/29/2024 Depression Screening 06/29/2025 06/29/2024, 06/29/20 SDOH Screening 11/01/2025 11/01/2024 Tobacco Screening 02/08/2026 02/08/2025 Lipid Panel 07/01/2029 07/01/2024, 10/10, 12/01/2020 DTaP/Tdap/Td [...] patient's age to complete this topic Meningococcal B Vaccine Aged Out No l onger eligible based on patient's age to complete [...] Procedure Name Priority Date/Time Associated Diagnosis Comments CYTOPATH-CELL ENHANCED Routine 01/13/2025 5:59 PM EST HEPATITIS C AB W/REFL TO HCV RNA, QN, PCR Routine 07/01/2024 11:22 AM EDT Routine screening for STI (sexually transmitted infection) HIV 1/2 ANTIGEN/ANTIBODY, FOURTH GENERATION W/RFL Routine 07/01/2024 11:22 AM EDT Routine screening for STI (sexually transmitted infection) LIPID PANEL, STANDARD Routine 07/01/2024 11:20 AM EDT Healthcare maintenance from Last 3 Months or Most Recently Relevant to Health Maintenance Results * Cytopath-cell enhanced (01/13/2025 5:59 PM EST) 01/13/2025 5:59 PM EST 01/14/2025 7:00 AM EST [facility] - 01/17/2025 10:44 AM EDT ----- ------- Name: Billy Poole Jr ?Age/Sex: 39/M ? : 1985 Unit#: [id number] ?? Attend Dr: Charlene Schmidt FEATHER CUTTING MACHINE FEEDER-BC ?Re01/13/25 ?Status: DEP REF ? Location: HO.LNP ?Disch: ? ----- ------- SPEC : [id number] ? RECD: 01/14/25 ? STATUS: ??SOUT ? REQ NUM: [id number] ? ETHAN: 01/13/25 ? SUBM DR: Charlene Schmidt FEATHER CUTTING MACHINE FEEDER-BC ? ENTERED: ??01/14/25 ?SP TYPE: Cytology ? OTHR DR: MAYRA MYERS NP ? ORDERED: ??Cyto-enhanced ? Diagnosis ?? Urine: ??Negative for high-grade urothelial carcinoma. ??See comment. ? COMMENT: Cellular specimen consisting of a few groups of urothelial cells, which are ?? small/medium in size and have variable chromatin. ??The background has single urothelial ?? cells without atypia, squamous cells, mixed inflammatory cells and red blood cells. ??The ?? differential diagnosis for these types of groups of urothelial cells includes infection, ?? trauma (e.g. stones) and other types of urothelial neoplasms. ?Clinical History Microscopic hematuria ? Material Received ?? Urine ? Gross Description Received is 20 cc of very cloudy yellow fluid from which a ThinPrep slide is prepared. Copies To: ?? Charlene Schmidt FEATHER CUTTING MACHINE FEEDER-BC ?? [facility] ?? [address] ?? [place] [address] ?? [phone] ?? [email or web address] ?? MAYRA MYERS NP ?? [facility] ?? [address] [facility] [facility] [address] ?? [place] [address] ?? [phone] ----- ------- Signed (signature on file) Ilan Soria MD 01/17/25 1044 ? ----- ------- ? END OF REPORT ? us Generic External Data Provider LAB CYTOLOGY GINI BARRIOS Final Result [facility] [address] [place] [phone] * Hepatitis C Antibody with Reflex to HCV, RNA, Quantitative, Real-Time PCR (07/01/2024 11:22 AM EDT) [facility] Hepatitis C Antibody Nonreactive Nonreactive [facility] Comment:Antibodies to HCV no t detected; does not exclude early acuteHCV infection. Blood Venous blood specimen / Unknown 07/01/2024 11:22 AM EDT 07/01/2024 1:25 PM EDT Mayra Myers [facility] BLOOD ORDERABLES Final Resul t Performing Organization Address [facility] de Phone Number [facility] [address] [place] [phone] * HIV-1/2 Antigen and Antibodies, Fourth Generation, with Reflexes (07/01/2024 11:22 AM EDT) [facility] HIV AB/AG Nonreactive Nonreactive [facility] Comment:HIV-1 p24 Ag and/or HIV-1/HIV-2 Ab not detected.A test result that is nonreactive does not exclude thepossibility of exposure to or infection with HIV-1 and/orHIV-2. Nonreactive results in this assay for individualswith prior exposure to HIV-1 and/or HIV-2 may be due toantigen and antibody levels that are below the limit ofdetection of this assay.The [employer] HIV Ag/Ab Combo assay result andsupplemental assay results should be interpreted inconjunction with the patient's clinical presentation,history and other laboratory results. If the results areinconsistent with clinical evidence, additional testing issuggested to confirm the result. Blood Venous blood specimen / Unknown 07/01/2024 11:22 AM EDT 07/01/2024 1:25 PM EDT us Mayra Myers [facility] LAB BLOOD ORDERABLES Final Resul t Performing Organization Address [facility]/ZIP Co de Phone Number [facility] [address] [place] [phone] * (ABNORMAL) Lipid Panel, Standard (07/01/2024 11:20 AM EDT) Triglycerides 125 <150 mg/dL [facility] Comment:Desirable Triglyceri de: less than 150 mg/dLBorderline High Triglyceride 150-199 mg/dLHigh Triglyceride: 200-499 mg/dLVery High Triglyceride: greater than or equal to 5OO mg/dL Cholesterol 176 <200 mg/dL [facility] Comment:Desirable Cholestero l: less than 200 mg/dLBorderline High Cholesterol: 200-239 mg/dLHigh Cholesterol: greater than 239 mg/dL LDL Cholesterol Calculated 108(H) <100 mg/dL [facility] Comment:Desirable LDL: less than 100 mg/dLNear Optimal/Above Optimal LDL: 110- 129 mg/dLBorderline High LDL: 130-159 mg/dLHigh LDL: 160-189 mg/dLVery High LDL: greater than or equal to 190 mg/dL HDL Cholesterol 43 >40 mg/dL [facility] Comment:Desirable HDL: great er than 40 mg/dL Note: This HDL assay may give artificially low results in patients with liver disease. Blood Venous blood specimen / Unknown 07/01/2024 11:20 AM EDT 07/01/2024 1:24 PM EDT Mayra Myers [facility] BLOOD ORDERABLES Final Resul t [facility] [address] [place] [phone] from Last 3 Months or Most Recently Relevant to Health Maintenance [facility] Care Teams Welder First Class Relationship Specialty Start Date End Date Mayra Myers ANP [address] [place] [phone] PCP - General Family Medicine 06/15/20
== END 2025-03-31 10:08 | disposition home or self-care (01) ==
LOC: HO.US 10:07
PROVIDERS: PCP Nurse Practitioner Primary Care; Visit Provider Nurse Practitioner Family
DX: R31.29 Other microscopic hematuria (principal)
CPT/HCPCS: 76770

== ENCOUNTER → 2025-03-31 10:08 | Outpatient (BNV) | payer MEDICAID, SELFPAY | PROVIDERS: PCP Nurse Practitioner Primary Care; Visit Provider Radiology Diagnostic Radiology | DX: N28.1 Cyst of kidney, acquired (principal) | CPT/HCPCS: 76770 ==

== ENCOUNTER 2025-04-11 10:46 | Outpatient (REF) | payer MEDICAID, SELFPAY ==
[2025-04-11 16:38] LABS: Urine Cytology See Pathology rpt
== END 2025-04-11 10:47 | disposition home or self-care (01) ==
LOC: HO.LNP 10:46
PROVIDERS: PCP Nurse Practitioner Primary Care; Visit Provider Nurse Practitioner Family
DX: R31.29 Other microscopic hematuria (principal); N28.1 Cyst of kidney, acquired
CPT/HCPCS: 81003; 88112; 99212

== ENCOUNTER 2025-04-11 10:46 | Outpatient (AMB) | payer MEDICAID, SELFPAY ==
--- NOTE | 2025-04-11 11:01 | A.OFFVIS_ITS ---
Intake Visit Reasons: 3m/US(set) Intake Note: Patient presents today for follow up on: microscopic hematuria and ultrasound results Imaging Completed: 03/31/25 Urology Medications: none Blood Thinner: none smoker: never Dishing Machine Operator Required: No Accompanied by: Self / Same As Patient Allergies shellfish derived [SHELLFISH DERIVED] Allergy (Severe, Verified 04/11/25 11:13) ANAPHYLAXIS No Known Drug Allergies Allergy (Mild, Verified 04/11/25 11:13) Unknown Medication List - Last Reconciled 04/11/25 by MO Keene- budesonide-formoterol 80-4.5 mcg/actuation (Symbicort) 2 puffs inhalation bupropion HCl XL 300 mg PO QAM cetirizine 10 mg PO QAM cholecalciferol (vitamin D3) 50 mcg PO QAM clonazepam 1 mg PO TID PRN diphenhydramine HCl (Benadryl) 50 mg (2 x 25 mg) PO Q6-8H PRN duloxetine 60 mg PO QAM epinephrine (EpiPen 2-Denny) 0.3 mg (0.3 mL) IM Q4H PRN fluticasone propionate 110 mcg/actuation (Flovent HFA) 1 puff inhalation BID hydrochlorothiazide 25 mg PO DAILY ketotifen fumarate 0.025%(0.035%) 1 drp ophthalmic (eye) BID lamotrigine 150 mg PO BEDTIME montelukast (Singulair) 10 mg PO DAILY pantoprazole 40 mg PO BID pravastatin 20 mg PO BEDTIME sertraline 25 mg PO DAILY trazodone 100 mg PO DAILY venlafaxine ER 150 mg PO BEDTIME venlafaxine ER 75 mg PO QAM HPI Comments Details: Billy is a very pleasant 40-year-old male patient of Dr. Arguello. He has a past medical history of allergic rhinitis, hypercholesteremia, hypertension, bipolar disorder, depression, anxiety, GERD, and asthma. He presents to the office today for follow-up. Of note, patient was seen approximately 3 months ago as a new patient for microscopic hematuria at which time his urine was sent for a cytology and a retroperitoneal ultrasound was ordered for further assessment evaluation. These results were reviewed and communicated with the patient today. Retroperitoneal ultrasound 04/03 notes bilateral kidneys are normal in thickness and echotexture. There is no hydronephrosis noted bilaterally. There is 11 mm upper pole left renal cysts. The urinary bladder is unremarkable. Pre void bladder volume is approximately 560 mL. Postvoid bladder volume is approximately 45 mL. The prostate measures 12 mL. He denies any previous history of workplace chemical exposure and or nicotine dependence. In office urinalysis results reviewed with the patient today 1+ microscopic hematuria as previous urinalysis noted 2+ microscopic hematuria. We discussed at length potential causes of microscopic hematuria. I discussed reasons for blood in the urine may include but are not limited to kidney stones, cancer in the urinary tract, BPH, kidney stone disease or inflammatory conditions of the urinary tract. I have discussed workup to include cystoscopy evaluation. He otherwise denies any bothersome urinary issues. He reports be happy with current voiding parameters. He denies urinary urgency, urinary frequency, incontinence, nocturia, hematuria, dysuria, foul smelling urine, changes to urinary stream, flank pain, fever, and or chills. All questions were answered. He otherwise offers no other issues or concerns at this time. Urine cytology 02/01 Negative for high-grade urothelial carcinoma [facility] Medical History Allergic rhinitis High cholesterol HTN (hypertension), benign Bipolar disorder Papilloma Oropharyngeal dysphagia Depression with anxiety GERD (gastroesophageal reflux disease) Asthma Surgical History H/O esophagogastroduodenoscopy Hx of tonsillectomy Family History Father Asthma Hypertension Mother Asthma Hypertension Brother Alive and well Social History Household Members: Spouse and Children Alcohol intake: never Patient Tobacco Use Status: Never used Tobacco Advance Directives Date on File: 12/11/20 Current occupational status: disabled Review of Systems Const All systems reviewed & are unremarkable except as noted in HPI and below Physical Exam Const General: cooperative, healthy appearing, comfortable, no acute distress, well developed, alert and awake Orientation/consciousness: patient oriented x3 Limitations: no limitations HEENT Head: Yes normal to inspection, Yes normocephalic and Yes atraumatic Ears: hearing grossly normal bilaterally Eyes General: appearance normal, both eyes and all related structures Neck Neck: Yes normal visual inspection and Yes trachea midline Chest Chest palpation & inspection: normal inspection of the chest Resp Effort & Inspection: normal respiratory effort and able to speak in complete sentences Cardio Rate: regular rate GI Inspection: Yes normal to inspection General: Yes no CVA tenderness Back/Spine/Pelvis Back: no CVA tenderness Skin General skin exam: no rashes or lesions noted Neuro General: patient oriented x3 Extrem General: Yes normal to inspection Psych Appearance: grossly normal and well kempt Mental Status: mental status grossly normal Speech and movement: Normal speech and movement present and Clear speech present Affect: normal affect Attitude: cooperative Thought process: Normal thought process present Thought content: Normal thought content present Insight: Fair insight present (Psych) Judgement: Fair judgement present (Psych) Results AMB Urinalysis, Automated UA Leukoctes 0 Katrin/uL Last Edit by Herb Small on 04/11/25 11:12 UA Nitrite Negative Last Edit by Herb Small on 04/11/25 11:12 UA Urobilinogen 3.5 mg/dL Last Edit by Herb Small on 04/11/25 11:12 UA Protein 15 mg/dL Last Edit by Herb Small on 04/11/25 11:12 UA pH 6 Last Edit by Herb Small on 04/11/25 11:12 UA Blood 25 Luis Manuel/uL Last Edit by Herb Small on 04/11/25 11:12 UA Specific [place] 1.015 Last Edit by Herb Small on 04/11/25 11:12 UA Ketone Negative Last Edit by Herb Small on 04/11/25 11:12 UA Bilirubin 0 mg/dL Last Edit by Herb Small on 04/11/25 11:12 UA Glucose 0 mg/dL Last Edit by Herb Small on 04/11/25 11:12 Results Reviewed Results Reviewed: Laboratory Last Values Urine pH (Auto) 6 04/11/25 11:03 Specific [place] (Auto) 1.015 04/11/25 11:03 Urine Protein (Auto) 15 mg/dL 04/11/25 11:03 Glucose (UA)(Auto) 0 mg/dL 04/11/25 11:03 Urine Ketones (Auto) Negative 04/11/25 11:03 Urine Blood (Auto) 25 Luis Manuel/uL 04/11/25 11:03 Urine Nitrite (Auto) Negative 04/11/25 11:03 Urine Bilirubin (Auto) 0 mg/dL 04/11/25 11:03 Urine Urobilinogen (Auto) 3.5 mg/dL 04/11/25 11:03 Leukocyte Esterase (Auto) 0 Katrin/uL 04/11/25 11:03 Date of Service: 03/31/25 Procedure(s): US retroperitoneal comp FINDINGS: Right kidney: The right kidney measures 11.4 x 6.0 x 4.6 cm. Renal parenchymal echotexture and thickness are normal. There are no masses. Punctate echogenic foci may represent vascular calcifications. There is no hydronephrosis or definite renal calculi. Left Kidney: The left kidney measures 11.4 x 6.7 x 4.6 cm. Renal parenchymal echotexture and thickness are normal. There is an 8 x 9 x 11 mm upper pole cyst. There is no hydronephrosis or renal calculi. The urinary bladder is unremarkable. Bilateral ureteral jets are identified. Before voiding, the urinary bladder measured 14.1 x 7.9 x 9.7 cm, for an estimated volume of 561 mL. After voiding, the urinary bladder measured 6.9 x 2.7 x 4.6 cm, for an estimated volume of 45 mL. The prostate measures 2.5 x 3.1 x 2.9 cm. IMPRESSION: 11 mm left upper pole renal cyst. Post void bladder residual of 45 mL. Assessment & Plan Assessment & Plan (1) Microscopic hematuria: Code(s): R31.29 - Other microscopic hematuria Category: Medical (2) Renal cyst: Code(s): N28.1 - Cyst of kidney, acquired Category: Medical Plan In office urinalysis results with the patient today; as noted above. Recent retroperitoneal ultrasound results with the patient today; as noted above. Previous urine cytology results reviewed with the patient today; as noted above. We discussed potential causes of microscopic hematuria as well as further workup in risks and benefits of these interventions. He currently denies any bothersome urinary issues or concerns. He reports be happy with current voiding parameters. Will continue with surveillance monitoring. Follow-up in 6 months; or sooner with any issues, concerns, and or questions. Orders: Orders AMB Urinalysis Automated Today Z13.9 - Encounter for screening, unspecified Urine Cytology Today R31.29 - Other microscopic hematuria Patient Instructions: The patient had an opportunity to ask questions regarding the treatment plan. All questions were answered. Physical exam, labs, and imaging were discussed and reviewed in detail. As well as risks, benefits, and discussion of treatment choices. No major barriers to understanding were identified. The patient expressed understanding and agreement with the above treatment plan. The patient was made aware they should contact our office by phone for worsening of their current condition, the appearance of new symptoms, or with any questions or concerns. Compliance is encouraged with any medications and follow up testing that is ordered. It is a privilege to be allowed the opportunity to participate in? your urological care.? Again, if you have any questions or concerns If you have any questions or concerns please do not hesitate to contact me. The office is [phone]. This note is constructed using voice recognition software. While every effort has been made to ensure accuracy manager golf errors may have been included. Yours sincerely, CORRIE Keene Coding Level of Care Code Est Pt Level 3 (76550) Diagnoses Microscopic hematuria R31.29 Renal cyst N28.1
--- OUTSIDE RECORDS SUMMARY | 2025-04-11 11:53 | XMS_ITS | Clinical Summary ---
Author Organization [facility], Address [address] [place] [address] [place] [phone] Phone Care Team Providers Care Veterans Contact Representative Name Role Phone Joseph Andrews [facility] Primary Care Provider Allergies Active Allergy Reactions [...] this topic Insurance Medicaid [place] Care Teams Veterans Contact Representative Relationship Specialty Start Date End Date Joseph Andrews FNP [address] [place] [address], [address] [place] [address] PCP - General 09/14/19
== END 2025-04-11 14:41 | disposition home or self-care (01) ==
LOC: HO.HUSH 10:47
PROVIDERS: PCP Nurse Practitioner Primary Care; Visit Provider Nurse Practitioner Family
DX: R31.29 Other microscopic hematuria (principal); N28.1 Cyst of kidney, acquired; Z13.9 Encounter for screening, unspecified
CPT/HCPCS: 99213

== ENCOUNTER 2025-06-02 09:03 | Outpatient (AMB) | payer MEDICAID, SELFPAY ==
--- NOTE | 2025-06-02 09:05 | A.OFFVIS_ITS ---
Vital Signs 3 06/02/25 09:07 Height 5 ft 4 in Weight 190 lb 0.615 oz BMI 32.6 BP 123/72 Blood Pressure Location Lt brachial Position Sitting Pulse 82 Intake Visit Reasons: 6 MO F/U GERD Intake Note: Billy returns in 6 months follow up of GERD and halitosis. CC: Patient states he continues feeling the same. Denies any new GI symptoms. Per patient he missed his ENT appt and it was rescheduled to July. Scrap Crusher Required: No Allergies shellfish derived (SHELLFISH DERIVED) Allergy (Severe, Verified 06/02/25 09:08) ANAPHYLAXIS No Known Drug Allergies Allergy (Mild, Verified 06/02/25 09:08) Unknown HPI HPI 6 MO F/U GERD: Details: Assessment & Plan (1) GERD (gastroesophageal reflux disease): Code(s): K21.9 - Gastro-esophageal reflux disease without esophagitis Category: Medical (2) Oropharyngeal dysphagia: Code(s): R13.12 - Dysphagia, oropharyngeal phase Category: Medical (3) Chronic sinusitis: Code(s): J32.9 - Chronic sinusitis, unspecified Category: Medical (4) Halitosis: Code(s): R19.6 - Halitosis Category: Medical Plan The patient is on pantoprazole 40mg bid. He continues to have constant cough with halitosis and hoarse voice. He has not heard from the local ENT so I am going to redirect him to a group in [facility]. He is agreeable to this. If they can not find any reason for this then will consider if allergy/immunology should be consulted next. Return office visit in 6 months Orders: Referrals Ear/Nose/Throat Referral J32.9 - Chronic sinusitis, unspecified, R19.6 - Halitosis Medications: Refilled pantoprazole 40 mg PO BID 60 tabs 6RF TODAY'S VISIT His problems with the same. The ear nose throat appointment was rescheduled so we do not have any insight yet into his halitosis. His GERD is well controlled. He has a new concern of patches that have arisen around his neck line. There difficult to see and he says his doctor gave him a steroid cream but this isn't changing them. They do not appear to be anything specific, they look like they are lightening and the very dry and it could be acanthosis nigricans looking at the pattern. He is obese so I will run some basic labs to see if diabetes is in the differential diagnosis and if this could be a contributing factor to his halitosis and chronic sinusitis. Return office visit in 6 months and I will let him know the labs are abnormal. [facility] Medical History Allergic rhinitis High cholesterol HTN (hypertension), benign Bipolar disorder Papilloma Oropharyngeal dysphagia Depression with anxiety GERD (gastroesophageal reflux disease) Asthma Surgical History H/O esophagogastroduodenoscopy Hx of tonsillectomy Family History Father Asthma Hypertension Mother Asthma Hypertension Brother Alive and well Social History Household Members: Spouse and Children Alcohol intake: never Patient Tobacco Use Status: Never used Tobacco Advance Directives Date on File: 12/11/20 Current occupational status: disabled Review of Systems Const Denies fatigue, Denies fever(s), Denies night sweats, Denies poor appetite and Denies weight loss ENT Reports Normal hearing present, Denies dental pain, Denies dysphagia, Denies hearing loss, Denies mouth pain, Denies odynophagia, Denies throat swelling, Denies tongue swelling and Reports other (Dentition adequate) Card Reports no additional complaints Resp Reports no additional complaints GI Details: Denies abdominal pain, Denies melena, Denies bloating, Denies hematochezia, Denies constipation, Denies GI cramping, Denies dysphagia, Denies excessive flatus, Denies early satiety, Reports heartburn, Denies diarrhea, Denies nausea, Denies odynophagia, Denies vomiting, Denies hematemesis and Reports other (Halitosis) Skin/Breast Reports dry skin, Denies pruritus, Reports lesions, Denies rash, Denies skin pain and Denies jaundice Neuro Reports Normal hearing present and Denies Abnormal speech present Endo Denies fatigue Aller/Immun Denies throat swelling and Denies tongue swelling Physical Exam Vital Signs: Last Vital Signs Pulse 82 06/02/25 09:07 BP 123/72 06/02/25 09:07 BMI result Body Mass Index 32.6 Const General: cooperative, no acute distress, well developed and well groomed Nutritional Appearance: well nourished and obese Orientation/consciousness: oriented to person, oriented to place and oriented to time Limitations: No language barrier HEENT Head: Yes normocephalic and Yes atraumatic Eyes General: appearance normal, both eyes and all related structures Pupils: Equal, round and reactive pupils present Neck Neck: Yes normal visual inspection and Yes no lymphadenopathy Thyroid: Thyroid normal Neck images: 2 1. Areas of patient concern, dry, soft maybe acanthosis nigricans 2. Resp Effort & Inspection: normal respiratory effort and able to speak in complete sentences Auscultation: clear to auscultation bilaterally Cardio Rate: regular rate Rhythm: regular rhythm Heart sounds: Normal, physiologic split S2 sound present Peripheral pulses: radial pulses present and posterior tibial pulses present GI Inspection: No distended, No Abdominal panniculus present and Yes obesity Palpation (GI): Soft to palpation, nontender, no guarding, not rigid and No hepatosplenomegaly present Percussion: Yes normal to percussion Auscultation: normal bowel sounds Rectal Exam - Male: Yes deferred Skin General skin exam: turgor normal, skin not dry, no jaundice, No spider nevi and no striae Rashes: other (See neck) Nails: normal Neuro General: oriented to person, oriented to place and oriented to time Cranial nerves: Yes Equal, round and reactive pupils present and Yes Normal hearing present Speech: No Abnormal speech present Extrem General: Yes normal to inspection, No clubbing, No cyanosis and No edema Psych Thought process: Normal thought process present and not confabulating Thought content: Normal thought content present Insight: Good insight present (Psych) Judgement: Good judgement present (Psych) Assessment & Plan Assessment & Plan (1) GERD (gastroesophageal reflux disease): Code(s): K21.9 - Gastro-esophageal reflux disease without esophagitis Category: Medical (2) Oropharyngeal dysphagia: Code(s): R13.12 - Dysphagia, oropharyngeal phase Category: Medical (3) Acanthosis nigricans: Code(s): L83 - Acanthosis nigricans Category: Medical (4) Obesity: Code(s): E66.9 - Obesity, unspecified Category: Medical (5) Hyperglycemia: Code(s): R73.9 - Hyperglycemia, unspecified Category: Medical (6) Halitosis: Code(s): R19.6 - Halitosis Category: Medical Plan His problems with the same. The ear nose throat appointment was rescheduled so we do not have any insight yet into his halitosis. His GERD is well controlled. He has a new concern of patches that have arisen around his neck line. There difficult to see and he says his doctor gave him a steroid cream but this isn't changing them. They do not appear to be anything specific, they look like they are lightening and the very dry and it could be acanthosis nigricans looking at the pattern. He is obese so I will run some basic labs to see if diabetes is in the differential diagnosis and if this could be a contributing factor to his halitosis and chronic sinusitis. Return office visit in 6 months and I will let him know the labs are abnormal. Orders: Orders 2 Hemoglobin A1c Today E66.9 - Obesity, unspecified, L83 - Acanthosis nigricans, R73.9 - Hyperglycemia, unspecified TSH reflex Free T4 Today E66.9 - Obesity, unspecified, L83 - Acanthosis nigricans, R73.9 - Hyperglycemia, unspecified Comprehensive Met. Panel Today E66.9 - Obesity, unspecified, L83 - Acanthosis nigricans, R73.9 - Hyperglycemia, unspecified Medications: Refilled 2 pantoprazole 40 mg PO BID 60 tabs 6RF Coding Level of Care Code Est Pt Level 3 (84714) Diagnoses GERD (gastroesophageal reflux disease) K21.9 Oropharyngeal dysphagia R13.12 Acanthosis nigricans L83 Obesity E66.9 Hyperglycemia R73.9 Halitosis R19.6
[2025-06-02 09:07] VITALS: BP 123/72; PULSE 82; BMI 32.6
--- OUTSIDE RECORDS SUMMARY | 2025-06-02 09:30 | XMS_ITS | Encounter Summary ---
Author Organization [facility] Address [address] [place] [address] [place] [phone] Phone Care Team Providers Care Channeler Outsole Name Role Phone Unknown, Unknown Primary Care Provider Opal kennedy Encounter Details Date Type Department Care Team ([facility] st Contact Info) Description 07/15/2024 Procedure Pass [facility], Ct Scan - [address] [address] Social History Tobacco Use Types Packs/Day Years Used Date Smoking Tobacco: Never Smokeless Tobacco: Never Alcohol Use Standard Drinks/Week Comments No 0 (1 standard drink = 0.6 oz pur e alcohol) Education Answer Date Recorded Are you interested in more education? Not on thor e 02/26/2024 Are you concerned about learning? Not on file 02/26/2024 No 02/26/2024 No 02/26/2024 Digital Access Answer Date Recorded No 02/26/2024 No 02/26/2024 Reliable internet access at home? Not on file 02/26/2024 Device with a working camera? Not on file Intimate Partner Violence Answer Date R ecorded Are you denied basic needs s uch as food, clothing, or medical care? No 07/15/2024 In the past 12 months have y ou been in a relationship with a person who hurts, threatens, or tries to control you? No 07/15/2024 Are you denied basic needs s uch as food, clothing, or medical care? No 07/15/2024 In the past 12 months have y ou been in a relationship with a person who hurts, threatens, or tries to control you? No 07/15/2024 Sex and Gender Information Value Date Recorded Sex Assigned at Male 01/11/2019 11:29 PM EST Legal Sex Male 9:18 PM EDT Gender Identity Male 01/11/2019 11:29 PM EST Sexual Orientation Straight 02/26/2024 4: 53 AM EDT documented as of this encounter Functional Status * Calculated C-SSRS Risk Score (Lifetime/Recent) Answer Date of Assessment Author No Risk Indicated 07/15/2024 3:48 PM EDT Krsital Mckinney RN * Holt Suicide Severity Rating Scale (Screener/Recent Self-Report) Question Answer Date of Assessment Author 1. Wish to be (Past 1 Month) No 024 3:48 PM EDT Kristal Mckinney, KHRIS 2. Non-Specific Active Suici tami Thoughts (Past 1 Month) No 07/15/2024 3:48 PM EDT Kristopher Mckinney RN 6. Suicidal Behavior (Lifetime) No 4 3:48 PM EDT Kristal Mckinney, KHRIS documented as of this encounter Plan of Treatment Not on file documented as of this encounter Visit Diagnoses Not on filedocumented in this encounter Care Teams Channeler Outsole Relationship Specialty Start Date End Date Unknown, Unknown, PCP - General 01/11/19 documented as of this encounter Additional Source Comments The information contained in this document represents components of the legal health record. It is not the complete legal health record.[facility]
--- OUTSIDE RECORDS SUMMARY | 2025-06-02 09:30 | XMS_ITS | Clinical Summary ---
Author Organization [facility], Address [address] [place] [address] [place] [address] Phone Care Team Providers Care Pearl Maker Name Role Phone Joseph Andrews [facility] Primary Care Provider Allergies Active Allergy Reactions [...] - 19+ 3-dose series) 2002 Influenza Vaccine (#1) 2025 Pneumococcal Vaccine: Peds ( 0 to 5 Years) and At-Risk Patients (6 to 49 Years) Aged Out No longer eligible b ased on patient's age to complete this topic Insurance Medicaid [place] Care Teams Pearl Maker Relationship Specialty Start Date End Date Joseph Andrews FNP [address] [place] [address], [address] [place] [address] PCP - General 09/14/19
--- OUTSIDE RECORDS SUMMARY | 2025-06-02 09:30 | XMS_ITS ---
Acct:[id number] Age/Sex: 40 / M ADM Date: 03/31/25 Loc: HO.US Attending Dr: Charlene DENTON Ordering Physician: Charlene Schmidt Date of Service: 03/31/25 Procedure(s): US retroperitoneal comp Accession Number(s): [id number] cc: Charlene Schmidt; MAYRA MYERS NP EXAMINATION: US RETROPERITONEUM HISTORY: R31.29 - Other microscopic hematuria TECHNIQUE: Real-time grayscale ultrasound imaging of the kidneys was performed and images were reviewed. COMPARISON: Correlation is made with a CT of the abdomen with contrast dated 10/14/2018. FINDINGS: Right kidney: The right kidney measures 11.4 x 6.0 x 4.6 cm. Renal parenchymal echotexture and thickness are normal. There are no masses. Punctate echogenic foci may represent vascular calcifications. There is no hydronephrosis or definite renal calculi. Left Kidney: The left kidney measures 11.4 x 6.7 x 4.6 cm. Renal parenchymal echotexture and thickness are normal. There is an 8 x 9 x 11 mm upper pole cyst. There is no hydronephrosis or renal calculi. The urinary bladder is unremarkable. Bilateral ureteral jets are identified. Before voiding, the urinary bladder measured 14.1 x 7.9 x 9.7 cm, for an estimated volume of 561 mL. After voiding, the urinary bladder measured 6.9 x 2.7 x 4.6 cm, for an estimated volume of 45 mL. The prostate measures 2.5 x 3.1 x 2.9 cm. US/US retroperitoneal comp IMPRESSION: 11 mm left upper pole renal cyst. Post void bladder residual of 45 mL. Electronically signed by: Akira Miller MD 03/31/2025 11:22 AM EDT RP Dictated By: Akira Miller MD Signed By: <Electronically signed by Akira Miller MD in OV> 03/31/25 1122 DD/ 1026 TD/TT: 03/31/25 1047 Trailer Park Manager: Procedure Note Donotuseinterpreter, Image - 03/31/[address] [address] Ultrasound Report Signed Patient: Billy Poole [facility]#: [id number] : 1985Acct:[id number] Age/Sex: 40 / MADM Date: 03/31/25 Loc: HO.US Attending Dr: Charlene DENTON Ordering Physician: Charlene Schmidt Date of Service: 03/31/25 Procedure(s): US retroperitoneal comp Accession Number(s): [id number] cc: Charlene Schmidt; MAYRA MYERS NP EXAMINATION: US RETROPERITONEUM HISTORY: R31.29 - Other microscopic hematuria TECHNIQUE: Real-time grayscale ultrasound imaging of the kidneys was performed and images were reviewed. COMPARISON: Correlation is made with a CT of the abdomen with contrast dated 10/14/2018. FINDINGS: Right kidney: The right kidney measures 11.4 x 6.0 x 4.6 cm. Renal parenchymal echotexture and thickness are normal. There are no masses. Punctate echogenic foci may represent vascular calcifications. There is no hydronephrosis or definite renal calculi. Left Kidney: The left kidney measures 11.4 x 6.7 x 4.6 cm. Renal parenchymal echotexture and thickness are normal. There is an 8 x 9 x 11 mm upper pole cyst. There is no hydronephrosis or renal calculi. The urinary bladder is unremarkable. Bilateral ureteral jets are identified. Before voiding, the urinary bladder measured 14.1 x 7.9 x 9.7 cm, for an estimated volume of 561 mL. After voiding, the urinary bladder measured 6.9 x 2.7 x 4.6 cm, for an estimated volume of 45 mL. The prostate measures 2.5 x 3.1 x 2.9 cm. US/US retroperitoneal comp IMPRESSION: 11 mm left upper pole renal cyst. Post void bladder residual of 45 mL. Electronically signed by: Akira Miller MD 03/31/2025 11:22 AM EDT Dictated By: Akira Miller MD Signed By: <Electronically signed by Akira Miller MD in OV> 03/31/25 1122 DD/ 1026 TD/TT: 03/31/25 1047 Trailer Park Manager: Result [facility] External Provider IMG US PROCEDURES Edited Result - Final * Hepatitis C Antibody with Reflex to HCV, RNA, Quantitative, Real-Time PCR (07/01/2024 11:22 AM EDT) Hepatitis C Antibody Nonreactive Nonreactive [facility] Comment:Antibodies to HCV no t detected; does not exclude early acuteHCV infection. Blood Venous blood specimen / Unknown 07/01/2024 11:22 AM EDT 07/01/2024 1:25 PM EDT Result [facility] Mayra Myers [facility] LAB BLOOD ORDERABLES Final Resul t Performing Organization Address [facility] Co de Phone Number [facility] [address] [place] [phone] * HIV-1/2 Antigen and Antibodies, Fourth Generation, with Reflexes (07/01/2024 11:22 AM EDT) HIV AB/AG Nonreactive Nonreactive [facility] Comment:HIV-1 p24 Ag and/or HIV-1/HIV-2 Ab not detected.A test result that is nonreactive does not exclude thepossibility of exposure to or infection with HIV-1 and/orHIV-2. Nonreactive results in this assay for individualswith prior exposure to HIV-1 and/or HIV-2 may be due toantigen and antibody levels that are below the limit ofdetection of this assay.The [employer] HIV Ag/Ab Combo assay result andsupplemental assay results should be interpreted inconjunction with the patient's clinical presentation,history and other laboratory results. If the results areinconsistent with clinical evidence, additional testing issuggested to confirm the result. Blood Venous blood specimen / Unknown 07/01/2024 11:22 AM EDT 07/01/2024 1:25 PM EDT Mayra MERRITT LAB BLOOD ORDERABLES Final Resul t Performing Organization Address [facility]/State/ZIP Co de Phone Number [facility] [address] [place] [address] [phone] * (ABNORMAL) Lipid Panel, Standard (07/01/2024 11:20 AM EDT) Triglycerides 125 <150 mg/dL [facility] Comment:Desirable Triglyceri de: less than 150 mg/dLBorderline High Triglyceride 150-199 mg/dLHigh Triglyceride: 200-499 mg/dLVery High Triglyceride: greater than or equal to 5OO mg/dL Cholesterol 176 <200 mg/dL [facility] Comment:Desirable Cholestero l: less than 200 mg/dLBorderline High Cholesterol: 200-239 mg/dLHigh Cholesterol: greater than 239 mg/dL LDL Cholesterol Calculated 108(H) <100 mg/dL [facility] Comment:Desirable LDL: less than 100 mg/dLNear Optimal/Above Optimal LDL: 110- 129 mg/dLBorderline High LDL: 130-159 mg/dLHigh LDL: 160-189 mg/dLVery High LDL: greater than or equal to 190 mg/dL HDL Cholesterol 43 >40 mg/dL [facility] Comment:Desirable HDL: great er than 40 mg/dL Note: This HDL assay may give artificially low results in patients with liver disease. Blood Venous blood specimen / Unknown 07/01/2024 11:20 AM EDT 07/01/2024 1:[address] [facility] LAB BLOOD ORDERABLES Final Resul t [facility] [address] [place] [address] [phone] from Last 3 Months or Most Recently Relevant to Health Maintenance Insurance [employer] [employer] Care Teams Operator Helper Relationship Specialty Start Date End Date Mayra Myers ANP [address] [place] [phone] PCP - General Family Medicine 06/15/20 Charlene Schmidt NP [address] [place] [address] Urology 05/02/25 Melissa Stovall [address] [place] [address] Gastroenterology 05/12/25
== END 2025-06-02 15:28 | disposition home or self-care (01) ==
LOC: HO.HGI 09:03
PROVIDERS: PCP Nurse Practitioner Primary Care; Visit Provider Nurse Practitioner
DX: K21.9 Gastro-esophageal reflux disease without esophagitis (principal); R13.12 Dysphagia, oropharyngeal phase; L83 Acanthosis nigricans; E66.9 Obesity, unspecified; R73.9 Hyperglycemia, unspecified; R19.6 Halitosis
CPT/HCPCS: 99213

== ENCOUNTER 2025-06-02 09:03 | Outpatient (REF) | payer MEDICAID, SELFPAY ==
[2025-06-02 10:48] LABS: Hemoglobin A1C 147.8349 umol/L; Total Hemoglobin (HGBA1C) 3903.8058 umol/L
[2025-06-02 11:21] LABS: Alanine Aminotransferase 69 U/L (0-40); Albumin Level 5.1 g/dL (3.5-5.0); Alkaline Phosphatase 114 U/L (39-117); Anion Gap 12 (12-20); Aspartate Amino Transferase 36 U/L (5-37); Blood Urea Nitrogen 13 mg/dL (9-16); Calcium 9.8 mg/dL (8.4-10.2); Carbon Dioxide 31 mmol/L (22-29); Chloride 102 mmol/L (96-108); Estimated Glomerular Filt Rate > 60; Potassium 4.0 mmol/L (3.3-5.1); Sodium 141 mmol/L (135-145); Total Protein 7.8 g/dL (6.5-8.0)
== END 2025-06-02 09:04 | disposition home or self-care (01) ==
LOC: HO.LAB 09:03
PROVIDERS: PCP Nurse Practitioner Primary Care; Visit Provider Nurse Practitioner
DX: K21.9 Gastro-esophageal reflux disease without esophagitis (principal); L83 Acanthosis nigricans; E66.9 Obesity, unspecified; R73.9 Hyperglycemia, unspecified; R19.6 Halitosis; R13.12 Dysphagia, oropharyngeal phase; Z68.32 Body mass index [BMI] 32.0-32.9, adult; Z79.899 Other long term (current) drug therapy
CPT/HCPCS: 36415; 80053; 83036; 84443; 99212

== ENCOUNTER 2025-06-09 12:16 | Outpatient (REF) | payer MEDICAID, SELFPAY ==
--- OUTSIDE RECORDS SUMMARY | 2025-06-09 12:38 | XMS_ITS | Clinical Summary ---
Author Organization [facility], Address [address] [place] [address] [place] [address] Phone Care Team Providers Care Lithographic Photographer Apprentice Name Role Phone Joseph Andrews [facility] Primary Care Provider Allergies Active Allergy Reactions [...] this topic Insurance Medicaid [place] Care Teams Lithographic Photographer Apprentice Relationship Specialty Start Date End Date Joseph Andrews FNP [address] [place] [address], [address] [place] [address] PCP - General 09/14/19
--- OUTSIDE RECORDS SUMMARY | 2025-06-09 12:38 | XMS_ITS | Encounter Summary ---
Author Organization [facility] Address [address] [place] [address] [place] [phone] Phone Care Team Providers Care Valve Steamer Name Role Phone Unknown, Unknown Primary Care Provider Opal kennedy Encounter Details Date Type Department Care Team ([facility] st Contact Info) Description 07/15/2024 Procedure Pass [facility], Ct Scan - [address] [address] Social History Tobacco Use Types Packs/Day Years [...] No Risk Indicated 07/15/2024 3:48 PM EDT Kristal Mckinney RN * Wallace Suicide Severity Rating Scale (Screener/Recent Self-Report) Question [...] on filedocumented in this encounter Care Teams Valve Steamer Relationship Specialty Start Date End Date Unknown, Unknown, PCP - General 01/11/19 documented as of this encounter Additional Source Comments The information contained in this document represents components of the legal health record. It is not the complete legal health record.[facility]
--- OUTSIDE RECORDS SUMMARY | 2025-06-09 12:38 | XMS_ITS | Clinical Summary ---
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 Unavailable February Unavailable Allergies Active Allergy Reactions Criticality Noted Date Comments Shellfish-Derived Products Anaphylaxis High 01/18/20 22 Medications fluticasone (Flonase) 50 MCG/ACT nasal sprayIndications: Non-seasonal allergic rhinitis, unspecified trigger INHALE 1 SPRAY IN EACH NOSTRIL TWICE DAILY 16 g 11 023 Active albuterol (Ventolin HFA) 108 (90 Base) MCG/ACT inhalerIndication s:Wheezing INHALE 2 PUFFS BY MOUTH EVERY 4 TO 6 HOURS NEEDED 18 g 5 024 Active Ketotifen Fumarate (Eye Itch Relief) 0.035 % solutionIndicatio ns:Allergic conjunctivitis, unspecified laterality INSTILL 1 DROP INTO THE AFFECTED EYE(S) TWICE DAILY DIRECTED 5 mL 5 024 Active buPROPion XL (Wellbutrin XL) 300 MG 24 hr tablet Take 300 mg by mouth in the morning. Active clonazePAM (KlonoPIN) 2 MG tablet Take 1 tablet by mouth 2 times daily. Active DULoxetine (Cymbalta) [address] capsule Take 60 mg by mouth in the morning. Active lamoTRIgine (LaMICtal) 150 MG tablet Take 1 tablet by mouth at bedtime. Active pantoprazole (ProtoNix) 40 MG EC tablet Take 40 mg by mouth before breakfast. Active traZODone (Desyrel) 100 MG tablet Take 100 mg by mouth if needed at bedtime. Active EPINEPHrine (Epipen) 0.3 MG/0.3ML injection syringeIndication s:Shellfish allergy Inject 0.3 mL (0.3 mg) as directed 1 (one) time if needed for anaphylaxis for up to 1 dose. Inject into upper leg. Call 911 after use. 2 each 1 024 Active pravastatin (Pravachol) 20 MG tabletIndications :Hyperlipidemia, unspecified hyperlipidemia type TAKE 1 TABLET BY MOUTH EVERY EVENING 90 tablet 3 024 Active budesonide-formot kay (Symbicort) 160-4.5 MCG/ACT inhalerIndication s:Moderate persistent asthma without complication Inhale 2 puffs in the morning and at bedtime. Rinse mouth with water after use to reduce aftertaste and incidence of candidiasis. Do not swallow. 1 each 11 025 2025 Active cetirizine (ZyrTEC) 10 MG tabletIndications :Non-seasonal allergic rhinitis due to other allergic trigger TAKE 1 TABLET BY MOUTH EVERY EVENING 90 tablet 1 025 Active montelukast (Singulair) 10 MG tabletIndications :Uncomplicated asthma, unspecified asthma severity, unspecified whether persistent TAKE 1 TABLET BY MOUTH AT BEDTIME 90 tablet 1 025 Active cholecalciferol VITAMIN D (Vitamin D-3) 50 MCG (1999 UT) tabletIndications :Vitamin D deficiency TAKE 1 TABLET BY MOUTH EVERY MORNING 90 tablet 1 025 Active hydroCHLOROthiazi de (HYDRODiuril) 25 MG tabletIndications :Benign essential HTN Take 1 tablet (25 mg) by mouth in the morning. 90 tablet 1 025 Active hydroCHLOROthiazi de (HYDRODiuril) 25 MG tabletIndications :Benign essential HTN TAKE 1 TABLET BY MOUTH EVERY MORNING 90 tablet 1 025 2024 Discontinued(R eorder (will not trigger notification to Pharmacy)) Active Problems Problem Noted Date Diagnosed Date [...] can consolidate to use this as SMART (phypah-kldszfkpimq-brt-reliever-therapy) Needs new nebulizer for use when sick. Will send. DME rx. Mixed anxiety and depressive disorder 04/30/2012 Encounters Date Type Department Care Team Description 06/06/2025 Telephone [facility] [address] [place] [phone] Mayra Myers ANP Results 06/06/[address] [address] Mayra Myers ANP October recall 06/02/2025 Orders Only GENERIC EXTERNAL DATA DEPARTMENT Provider, Generic External Data 05/12/2025 10:15 AM EDT Office Visit [address] [address] Mayra Myers ANP Encounter for immunization (Primary Dx); Benign essential HTN; Anxiety state; Mixed anxiety and depressive disorder; Microscopic hematuria 05/12/2025 Travel 05/11/2025 Telephone [facility] [address] [place] [phone] Mayra Myers ANP chart prep 05/06/2025 Patient Outreach [facility] [address] [place] [address] Mayra Myers ANP Pre-visit Planning ([facility] unable to reach LVM) 04/11/2025 Orders Only GENERIC EXTERNAL DATA DEPARTMENT Provider, Generic External Data 03/31/2025 Orders Only [facility] External Provider, 03/10/2025 Patient Outreach [facility] [address] [place] [address] Mayra Myers ANP Care Coordination (C3/CM Outreach) from Last 3 Months Immunizations Immunization Administration Dates Next Due Hep B, adult 05/12/2025 Influenza injectable quadriv alent IIV4 with preservative [...] more drinks on one occasion? 0 06/29/2024 Depression Answer Date Recorded Patient Health Questionnaire-9 Score 15 05/12/2025 Patient Health Questionnaire-9 Score 15 05/12/2025 Last PHQ-9: Questionnaire Data Not on file 0 05/12/2025 Housing Stability Answer Date Recorded What is [...] the past 12 months, has t he [employer], gas, oil or water company threatened to shut off services in your home? No 11/01/2024 Depression Answer Date Recorded Patient Health Questionnaire-2 Score 4 05/12/2025 Internet Access Answer Date Recorded Internet Access [...] Sign Reading Time Taken Comments Blood Pressure 122/82 05/12/2025 11:00 AM EDT Pulse 89 05/12/2025 10:20 AM EDT Temperature 36.6 C (97.9 F) 02/08/2025 9:16 AM EDT Respiratory Rate 16 05/12/2025 10:20 AM EDT Oxygen Saturation 98% 02/08/2025 9:16 AM EDT Inhaled Oxygen Concentration - - Weight 86.2 kg (190 lb) 05/12/2025 10:20 AM EDT Height 160 cm (5' 3 ) 05/12/2025 10:20 AM EDT Body Mass Index 33.66 05/12/2025 10:20 AM EDT Plan of Treatment Upcoming Encounters Date Type Department Care Team (Late st Contact Info) Description 08/16/2025 11:30 AM EDT Office Visit [facility] [address] [place] [address] Mayra Myers ANP [address] [place] [address] Health Maintenance Due Date Last Done Comments HPV Vaccines (1 - Male 3-dose series) 1998 COVID-19 Vaccine (3 - season) 2024 05/15/2021, 04/17/2021 Hepatitis B Vaccines (2 of 3 - 19+ 3-dose series) 06/09/2025 05/12/2025 Influenza Vaccine (#1) 2025 , 08/23/2021, 10/19/2020, Additional history exists SDOH Screening 11/01/2025 11/01/2024 Depression Monitoring 11/12/2025 05/12/2025, 025 Alcohol/Substance Use Screening 05/12/2026 05/12/2025 Disability Screening 05/12/2026 05/12/2025 Family Planning (PISQ) 05/12/2026 05/12/2025 Tobacco Screening 05/12/2026 05/12/2025 Lipid Panel 07/01/2029 07/01/2024, 10/10, 12/01/2020 DTaP/Tdap/Td Vaccines (3 - Td or Tdap) 10/19/2031 10/19/2021, 09/03/2013 Zoster Vaccines (1 of 2) 2033 RSV Patients and Patients Aged 60 years or older (1 - 1-dose 75+ series) 2058 HIV Screening Completed 07/01/2024, 10/23/2021 Hepatitis C Screening Completed 07/01/2024, 021 Pneumococcal Vaccine: Pediatrics (0 to 5 Years) and At-Risk Patients (6 to 49) Years Completed 11/11/2024, 12/14/2012 HIB Vaccines Aged Out [...] Procedure Name Priority Date/Time Associated Diagnosis Comments TSH W/REFLEX TO FT4 Routine 06/02/2025 9 :51 AM EDT COMPREHENSIVE METABOLIC PANEL Routine 06/02/2025 9:51 AM EDT HEMOGLOBIN A1C Routine 06/02/2025 9:51 AM EDT CYTOPATH-CELL ENHANCED Routine 4:37 PM EDT US RETROPERITONEAL COMPLETE Routine 03/31/2025 10:26 AM EDT HEPATITIS C AB W/REFL TO HCV RNA, QN, PCR Routine 07/01/2024 11:22 AM EDT Routine screening for STI (sexually transmitted infection) HIV 1/2 ANTIGEN/ANTIBODY, FOURTH GENERATION W/RFL Routine 07/01/2024 11:22 AM EDT Routine screening for STI (sexually transmitted infection) LIPID PANEL, STANDARD Routine 07/01/2024 11:20 AM EDT Healthcare maintenance from Last 3 Months or Most Recently Relevant to Health Maintenance Results * TSH with Reflex to Free T4 (06/02/2025 9:51 AM EDT) TSH reflex Free T4 2.77 0.32 - 4.0 uIU/mL [facility] 06/02/2025 9:51 AM EDT 06/02/2025 9:51 AM EDT us Generic External Data Provider LAB BLOOD ORDERAB LES Final Result [facility] [address] [place] [phone] * Hemoglobin A1c (06/02/2025 9:51 AM EDT) Hemoglobin A1c 5.6 <6.0 % [facility] Comment:Hemoglobin A1C Refer ence Range Adults: 4.8 - 6.0 % Non diabetic: < 6.0 % Goal: < 7.0 %Additional Action Suggested: > 8.0 %Note: Hemoglobin A1c results are invalid for patients with abnormal amounts of HbF. Blood transfusions may impact the HbA1c concentration in the patient sample. Estimated Average Glucose 114 mg/dL [facility] Comment:eAG = Estimated ave rage glucose which is %A1C expressed asaverage glucose, using the formula of the I3B-RcatfofFojyeur Glucose study (ADAG), Diabetes Care, Vol.31,#8,2007 06/02/2025 9:51 AM EDT 06/02/2025 9:51 AM EDT us Generic External Data Provider LAB BLOOD ORDERAB LES Final Result [facility] [address] [place] [phone] * (ABNORMAL) Comprehensive Metabolic Panel (06/02/2025 9:51 AM EDT) Sodium 141 135 - 145 mmol/L [facility] Potassium 4.0 3.3 - 5.1 mmol/L [facility] Chloride 102 96 - 108 mmol/L [facility] Carbon Dioxide 31(H) 22 - 29 mmol/L [facility] Anion Gap 12 12 - 20 [facility] Urea Nitrogen (BUN) 13 9 - 16 mg/dL [facility] Creatinine, Serum 0.98 0.5 - 1.4 mg/dL [facility] Estimated Glomerular Filt Rate >60 [facility] Comment:Chronic Kidney Disea se: Estimated GFR < 60 mL/min/1.09h1Zoossk Kidney Disease: Estimated GFR < 15 mL/min/1.73m2 Glucose 99 60 - 115 mg/dL [facility] Calcium 9.8 8.4 - 10.2 mg/dL [facility] Bilirubin, Total 1.0 0.0 - 1.0 mg/dL [facility] Aspartate Amino Transferase 36 5 - 37 U/L [facility] Alanine Aminotransferase 69(H) 0 - 40 U/L [facility] Total Protein 7.8 6.5 - 8.0 g/dL [facility] Albumin Level 5.1(H) 3.5 - 5.0 g/dL [facility] Alkaline Phosphatase 114 39 - 117 U/L [facility] 06/02/2025 9:51 AM EDT 06/02/2025 9:51 AM EDT us Generic External Data Provider LAB BLOOD ORDERAB LES Final Result Performing Organization Address City/State/[facility] Co de Phone Number [facility] [address] [place] [phone] * Cytopath-cell enhanced (04/11/2025 4:37 PM EDT) 04/11/2025 4:37 PM EDT 04/12/2025 9:05 AM EDT Narrative [facility] - 04/14/2025 10:19 AM EDT ----- ------- Name: Billy Poole Jr Age/Sex: 40/M : 1985 Unit#: [id number] Attend Dr: Charlene SchmidtP- Re04/11/25 Status: DEP REF Location: HO.LNP Disch: ----- ------- SPEC : [id number] RECD: 04/12/25 STATUS: ADÁN CLEMENTS NUM: [id number] ETHAN: 04/11/251637 [facility] DR: Charlene Schmidt [facility] ENTERED: 04/12/25 SP TYPE: Cytology OTHR DR: MAYRA MYERS NP ORDERED: Cyto-enhanced Diagnosis Urine, cytology: Negative for high-grade urothelial carcinoma. COMMENT: Review of the cytology preparation demonstrates a mildly cellular specimen composed of squames and urothelial cells. Red blood cells are noted. There is no significant atypia seen. Clinical History Other microscopic hematuria Material Received Urine Gross Description Received is 27 cc of clear yellow fluid from which a ThinPrep slide is prepared. IHC S/NG Disclaimer NOTE: Unless otherwise stated, all tissue is formalin-fixed and paraffin-embedded. Some or all of the immunohistochemical tests reported herein may have been developed and their performance characteristics determined by Laboratory. They have not been cleared or approved by the U.S. Food and Drug Administration (FDA). However, the FDA has determined that such clearance or approval is not necessary. This laboratory is certified under the Clinical Laboratory Improvement Amendments of 1988 (CLIA) as qualified to perform high complexity clinical laboratory testing. Copies To: Charlene Schmidt [facility] [address] [place] [address] [address] [place] [address] [email or web address] MAYRA MYERS NP [address] [place] [address] CONTINUED ON NEXT PAGE ----- ------- Name: Billy Poole Jr Age/Sex: 40/M : 1985 Unit#: [id number] Attend Dr: Charlene Schmidt [facility] Re04/11/25 Status: ANTONIETA REF Location: ARIANNA Disch: ----- ------- SPEC : [id number] RECD: 04/12/25 STATUS: SUSANJaspal DUSTYDelmy NUM: [id number] ETHAN: 04/11/25-16[address] [facility] [address]: Charlene Schmidt [facility] ENTERED: 04/12/25-1051 SP TYPE: Cytology OTHR DR: MAYRA MYERS NP ORDERED: Cyto-enhanced ----- ------- Signed (signature on file) Yoli Levin MD 04/14/25 1019 ----- ------- END OF REPORT us Generic External Data Provider LAB CYTOLOGY GINI BARRIOS Final Result [facility] [address] [place] [phone] * US Retroperitoneal Complete (03/31/2025 10:26 AM EDT) Anatomical Region Laterality Modality Ultrasound 03/31/2025 10:2 6 AM EDT Narrative 03/31/2025 11:25 AM EDT [address] [address] Ultrasound Report Signed Patient: Billy Poole Jr MR#: [id number] : 1985 Acct:[id number] Age/Sex: 40 / M ADM Date: 03/31/25 Loc: HO.US Attending Dr: Charlene DENTON Ordering Physician: Charlene Schmidt Date of Service: 03/31/25 Procedure(s): US retroperitoneal comp Accession Number(s): [id number] cc: Charlene Schmidt; MAYRA MYERS NP EXAMINATION: [...] 03/31/25 1122 DD/ 1026 TD/TT: 03/31/25 1047 Food Sampler: Procedure Note Donotuseinterpreter, Image - 03/31/[address] [address] Ultrasound Report Signed Patient: Billy Poole [facility]#: [id number] : 1985Acct:[id number] Age/Sex: 40 / MADM Date: 03/31/25 Loc: HO.US Attending Dr: Charlene DENTON Ordering Physician: Charlene Schmidt Date of Service: 03/31/25 Procedure(s): US retroperitoneal comp Accession Number(s): [id number] cc: Charlene Schmidt; MAYRA MYERS NP EXAMINATION: [...] 03/31/25 1122 DD/ 1026 TD/TT: 03/31/25 1047 Food Sampler: [facility] External Provider IMG US PROCEDURES Edited Result - Final * Hepatitis C Antibody with Reflex to HCV, RNA, Quantitative, Real-Time PCR (07/01/2024 11:22 AM EDT) Hepatitis C Antibody Nonreactive Nonreactive [facility] Comment:Antibodies to HCV no t detected; does not exclude early acuteHCV infection. Blood Venous blood specimen / Unknown 07/01/2024 11:22 AM EDT 07/01/2024 1:25 PM EDT [facility] LAB BLOOD ORDERABLES Final Resul t [facility] [address] [place] [phone] * HIV-1/2 Antigen and Antibodies, Fourth Generation, with Reflexes (07/01/2024 11:22 AM EDT) HIV AB/AG Nonreactive Nonreactive [facility] Comment:HIV-1 p24 Ag and/or HIV-1/HIV-2 Ab not detected.A test result that is nonreactive does not exclude thepossibility of exposure to or infection with HIV-1 and/orHIV-2. Nonreactive results in this assay for individualswith prior exposure to HIV-1 and/or HIV-2 may be due toantigen and antibody levels that are below the limit ofdetection of this assay.The Care IT HIV Ag/Ab Combo assay result andsupplemental assay results should be interpreted inconjunction with the patient's clinical presentation,history and other laboratory results. If the results areinconsistent with clinical evidence, additional testing issuggested to confirm the result. Blood Venous blood specimen / Unknown 07/01/2024 11:22 AM EDT 07/01/2024 1:25 PM EDT Mayra Myers ANP LAB BLOOD ORDERABLES Final Resul t Performing Organization Address [facility] de Phone Number [facility] [address] [place] [phone] * (ABNORMAL) Lipid Panel, Standard (07/01/2024 11:20 AM EDT) Triglycerides 125 <150 mg/dL [facility] Comment:Desirable Triglyceri de: less than 150 mg/dLBorderline High Triglyceride 150-199 mg/dLHigh Triglyceride: 200-499 mg/dLVery High Triglyceride: greater than or equal to 5OO mg/dL Cholesterol 176 <200 mg/dL [facility] Comment:Desirable Cholestero l: less than 200 mg/dLBorderline High Cholesterol: 200-239 mg/dLHigh Cholesterol: greater than 239 mg/dL LDL Cholesterol Calculated 108(H) <100 mg/dL [facility] Comment:Desirable LDL: less than 100 mg/dLNear Optimal/Above Optimal LDL: 110- 129 mg/dLBorderline High LDL: 130-159 mg/dLHigh LDL: 160-189 mg/dLVery High LDL: greater than or equal to 190 mg/dL HDL Cholesterol 43 >40 mg/dL [facility] Comment:Desirable HDL: great er than 40 mg/dL Note: This HDL assay may give artificially low results in patients with liver disease. Blood Venous blood specimen / Unknown 07/01/2024 11:20 AM EDT 07/01/2024 1:24 PM EDT us Mayra Myers ANP LAB BLOOD ORDERABLES Final Resul t Performing Organization Address [facility] Co de Phone Number [facility] [address] [place] [phone] from Last 3 Months or Most Recently Relevant to Health Maintenance Insurance [facility] C3 Care Teams Ear Nose Throat Surgeon Relationship Specialty Start Date End Date Mayra Myers ANP [address] [place] [phone] PCP - General Family Medicine 06/15/20 Charlene Schmidt NP [address] [place] [address] Urology 05/02/[address] Floor [place], [place] Gastroenterology 05/12/25
[2025-06-09 13:44] LABS: Anion Gap 13 (12-20); Blood Urea Nitrogen 19 mg/dL (9-16); Calcium 9.5 mg/dL (8.4-10.2); Carbon Dioxide 30 mmol/L (22-29); Chloride 102 mmol/L (96-108); Estimated Glomerular Filt Rate > 60; Potassium 3.7 mmol/L (3.3-5.1); Sodium 141 mmol/L (135-145)
[2025-06-09 13:58] LABS: Microalbum/Creatinine Ratio Ur 12.7 ug/mg cr (<30)
[2025-06-09 14:07] LABS: HIV Num 1 0.06 S/CO (0.00-0.99); ~HepC Num1 0.11 S/CO (0.00-0.79); ~Hepatitis C Antibody Nonreactive (Nonreactive)
[2025-06-09 15:30] LABS: CT PCR Urine NOT DETECTED (Not Detect.); NG PCR Urine NOT DETECTED (Not Detect.)
== END 2025-06-09 12:17 | disposition home or self-care (01) ==
LOC: HO.HHCL 12:16
PROVIDERS: PCP Nurse Practitioner Primary Care; Visit Provider Nurse Practitioner Primary Care
DX: I10 Essential (primary) hypertension (principal); Z11.3 Encounter for screening for infections with a predominantly sexual mode of transmission; Z11.4 Encounter for screening for human immunodeficiency virus [HIV]; Z11.59 Encounter for screening for other viral diseases
CPT/HCPCS: 36415; 80048; 82043; 82570; 86592; 86803; 87389; 87491; 87591

== ENCOUNTER 2025-09-27 08:38 | Outpatient (REF) | payer MEDICAID, SELFPAY ==
[2025-09-27 12:27] LABS: Cholesterol 193 mg/dL (<200); HDL Cholesterol 39 mg/dL (>40); Triglycerides 192 mg/dL (<150)
== END 2025-09-27 08:39 | disposition home or self-care (01) ==
LOC: HO.HHCL 08:38
PROVIDERS: PCP Nurse Practitioner Primary Care; Visit Provider Nurse Practitioner Primary Care
DX: Z00.00 Encounter for general adult medical examination without abnormal findings (principal)
CPT/HCPCS: 36415; 80061

== ENCOUNTER 2025-09-29 09:01 | Outpatient (AMB) | payer MEDICAID, SELFPAY ==
--- NOTE | 2025-09-29 09:10 | A.OFFVIS_ITS ---
Vital Signs 09/29/25 09:11 Height 5 ft 4 in Weight 194 lb 14.218 oz BMI 33.4 BP 120/72 Blood Pressure Location Lt brachial Position Sitting Pulse 75 Intake Visit Reasons: halitosis, GERD Intake Note: Billy returns in follow up of halitosis, GERD, and lab results. CC: Patient c/o having a lot of phlegm and having to constantly clear his throat. He states that he can't barely sleep do to this problem. Per patient his PCP changed his Pantoprazole to esomeprazole but patient states that his continues having same symptoms. Reimbursement Representative Required: No Accompanied by: Self / Same As Patient Allergies shellfish derived (SHELLFISH DERIVED) Allergy (Severe, Verified 09/29/25 09:21) ANAPHYLAXIS No Known Drug Allergies Allergy (Mild, Verified 09/29/25 09:21) Unknown HPI HPI halitosis, GERD: Details: Assessment & Plan (1) GERD (gastroesophageal reflux disease): Code(s): K21.9 - Gastro-esophageal reflux disease without esophagitis Category: Medical (2) Oropharyngeal dysphagia: Code(s): R13.12 - Dysphagia, oropharyngeal phase Category: Medical (3) Acanthosis nigricans: Code(s): L83 - Acanthosis nigricans Category: Medical (4) Obesity: Code(s): E66.9 - Obesity, unspecified Category: Medical (5) Hyperglycemia: Code(s): R73.9 - Hyperglycemia, unspecified Category: Medical (6) Halitosis: Code(s): R19.6 - Halitosis Category: Medical Plan His problems with the same. The ear nose throat appointment was rescheduled so we do not have any insight yet into his halitosis. His GERD is well controlled. He has a new concern of patches that have arisen around his neck line. There difficult to see and he says his doctor gave him a steroid cream but this isn't changing them. They do not appear to be anything specific, they look like they are lightening and the very dry and it could be acanthosis nigricans looking at the pattern. He is obese so I will run some basic labs to see if diabetes is in the differential diagnosis and if this could be a contributing factor to his halitosis and chronic sinusitis. Return office visit in 6 months and I will let him know the labs are abnormal. Orders: Orders Hemoglobin A1c Today E66.9 - Obesity, unspecified, L83 - Acanthosis nigricans, R73.9 - Hyperglycemia, unspecified TSH reflex Free T4 Today E66.9 - Obesity, unspecified, L83 - Acanthosis nigricans, R73.9 - Hyperglycemia, unspecified Comprehensive Met. Panel Today E66.9 - Obesity, unspecified, L83 - Acanthosis nigricans, R73.9 - Hyperglycemia, unspecified Medications: Refilled pantoprazole 40 mg PO BID 60 tabs 6RF LABS: Laboratory Tests 06/02/25 06/09/25 09:51 12:25 Estimated GFR > 60 Hemoglobin A1c % 5.6 Total Bilirubin 1.0 AST 36 ALT 69 H Alkaline Phosphatase 114 TSH 2.77 ALONE TODAY'S VISIT [facility] Medical History Allergic rhinitis High cholesterol HTN (hypertension), benign Bipolar disorder Papilloma Oropharyngeal dysphagia Depression with anxiety GERD (gastroesophageal reflux disease) Asthma Surgical History H/O esophagogastroduodenoscopy Hx of tonsillectomy Family History Father Asthma Hypertension Mother Asthma Hypertension Brother Alive and well Social History Household Members: Spouse and Children Alcohol intake: never Patient Tobacco Use Status: Never used Tobacco Advance Directives Date on File: 12/11/20 Current occupational status: disabled Review of Systems Const Denies fatigue, Denies fever(s), Denies night sweats, Denies poor appetite and Denies weight loss ENT Reports Normal hearing present, Reports halitosis, Denies dental pain, Denies dysphagia, Denies hearing loss, Denies mouth pain, Denies odynophagia, Denies throat swelling, Denies tongue swelling and Reports other (Dentition adequate) Card Reports no additional complaints Resp Reports no additional complaints GI Details: Denies abdominal pain, Denies melena, Denies bloating, Denies hematochezia, Denies constipation, Denies GI cramping, Denies dysphagia, Denies excessive flatus, Denies early satiety, Reports heartburn, Denies diarrhea, Denies nausea, Denies odynophagia, Denies vomiting and Denies hematemesis Skin/Breast Denies pruritus, Denies lesions, Denies rash and Denies jaundice Neuro Reports Normal hearing present and Denies Abnormal speech present Endo Denies fatigue Aller/Immun Denies throat swelling and Denies tongue swelling Physical Exam Vital Signs: Last Vital Signs Pulse 75 09/29/25 09:11 BP 120/72 09/29/25 09:11 BMI result Body Mass Index 33.4 Const General: cooperative, no acute distress, well developed and well groomed Nutritional Appearance: well nourished and obese Orientation/consciousness: oriented to person, oriented to place and oriented to time Limitations: No language barrier HEENT Head: Yes normocephalic and Yes atraumatic Eyes General: appearance normal, both eyes and all related structures Pupils: Equal, round and reactive pupils present Neck Neck: Yes normal visual inspection and Yes no lymphadenopathy Thyroid: Thyroid normal Resp Effort & Inspection: normal respiratory effort and able to speak in complete sentences Auscultation: clear to auscultation bilaterally Cardio Rate: regular rate Rhythm: regular rhythm Heart sounds: Normal, physiologic split S2 sound present Peripheral pulses: radial pulses present and posterior tibial pulses present GI Inspection: No distended, No Abdominal panniculus present and Yes obesity Palpation (GI): Soft to palpation, nontender, no guarding, not rigid and No hepatosplenomegaly present Percussion: Yes normal to percussion Auscultation: normal bowel sounds Rectal Exam - Male: Yes deferred Skin General skin exam: no rashes or lesions noted, turgor normal, skin not dry, no jaundice, No spider nevi and no striae Rashes: no rashes Nails: normal Neuro General: oriented to person, oriented to place and oriented to time Cranial nerves: Yes Equal, round and reactive pupils present and Yes Normal hearing present Speech: No Abnormal speech present Extrem General: Yes normal to inspection, No clubbing, No cyanosis and No edema Psych Appearance: grossly normal and well kempt Mental Status: mental status grossly normal Speech and movement: Normal speech and movement present Affect: normal affect Attitude: cooperative Thought process: Normal thought process present and not confabulating Thought content: Normal thought content present Insight: Limited insight present (Psych) Judgement: Limited judgement present (Psych) Assessment & Plan Assessment & Plan (1) GERD (gastroesophageal reflux disease): Code(s): K21.9 - Gastro-esophageal reflux disease without esophagitis Category: Medical (2) Papilloma: Comment: OF THE ESOPHAGUS 04/2020 EGD Code(s): D36.9 - Benign neoplasm, unspecified site Category: Medical (3) Acanthosis nigricans: Code(s): L83 - Acanthosis nigricans Category: Medical (4) Erosive esophagitis: Code(s): K22.10 - Ulcer of esophagus without bleeding Category: Medical Plan Subjective Follow-up for persistent heartburn and throat discomfort. Esomeprazole 40 mg once daily provided no improvement. Reports constant phlegm with all-day throat clearing, intermittent globus sensation (feels like something stuck in throat), and cough triggered by the phlegm. Notes chronic bad breath. Denies early satiety. Does not feel material refluxing up from the stomach. Prior allergy treatments including fluticasone nasal spray have not helped. Relevant Past Medical, Social, and Family History Prior upper endoscopy in January 2021 with dilation that did not improve symptoms; a small mucosal patch was biopsied and was benign. Prior anti-reflux regimens trialed include omeprazole, famotidine, pantoprazole, and esomeprazole, including high-dose/twice-daily therapy per insurance step requirements. 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 - Prior studies reviewed: ?Normal reflux? study and normal small bowel follow- through. - Upper endoscopy (January 2021): dilation performed without symptomatic benefit; biopsy benign. Assessment & Plan Refractory gastroesophageal symptoms/erosive esophagitis with extra-esophageal manifestations (throat discomfort, chronic phlegm, globus, cough, halitosis): Persistent symptoms despite trials of famotidine, high-dose omeprazole, twice- daily pantoprazole, and twice-daily esomeprazole. Extra-esophageal features may reflect dual contributions from reflux and sinonasal sources; will escalate acid suppression and add a prokinetic to address possible delayed gastric emptying component. - Initiate Voquenza twice daily (lower-strength tablet but higher potency) with prior authorization submitted; insurance may require step therapy?patient informed a different medication may be dispensed if mandated. - Continue current acid-suppressive regimen until Voquenza is obtained; add Voquenza when available. - Start a gastric prokinetic agent dosed four times daily (aiming for breakfast, lunch, supper, and bedtime). Counselled on rare adverse effects at higher doses/long durations (e.g., severe tremor or motor restlessness); instructed to stop immediately and notify me if these occur. - Follow up in approximately 8 weeks to reassess response, accounting for holiday scheduling. - Education provided on dosing timing and expectations; will adjust plan based on clinical response and insurance determinations. Medications: New vonoprazan 20 mg PO BID 60 tabs 6RF K22.10 - Ulcer of esophagus without bleeding metoclopramide HCl (Reglan) 5 mg PO QIDACHS 120 tabs 6RF K22.10 - Ulcer of esophagus without bleeding Discontinued pantoprazole Discontinued Reason: Doctor's Order 40 mg PO BID 60 tabs 6RF Coding Level of Care Code Est Pt Level 3 (44663) Diagnoses GERD (gastroesophageal reflux disease) K21.9 Papilloma D36.9 Acanthosis nigricans L83 Erosive esophagitis K22.10
[2025-09-29 09:11] VITALS: BP 120/72; PULSE 75; BMI 33.4
--- OUTSIDE RECORDS SUMMARY | 2025-09-29 10:59 | XMS_ITS | Continuity of Care Document ---
Author Organization [place] - [facility], [facility] Address [address] [place] [address] Care Team Providers Care Main Line Station Engineer Name Role Phone MAYRA MYERS Primary Care Provider Assessment Encounter Date Assessment Date Assessment LastModified by Organization Details LastModified Time 07/21/2025 07/21/2025 40-year-old male presents today for evaluation of halitosis and globus. He is on pantoprazole twice a day for reflux. He has a history of tonsillectomy and has been worked up by GI for his reflux and was last seen in 2019 for the halitosis in our office. Oral cavity is normal. Flexible laryngoscopy was performed which did not show any lesion or infection. There was some mild old cobblestoning and nasal drip noted. I recommended fluticasone for the nasal drip. I recommended continued reflux precautions as he is clearing his throat frequently during the exam. I recommended avoidance of any alcohol-based mouth rinses as he is not quite sure which kind he is currently using. Further evaluation could include formal allergy testing. [email or web address] Not available 07/24/2025 12:13:49 Plan of Treatment Reminders Order Date Submit Date Provider Last Modified By Organization Details Last Modified Time Details Appointments None recorded. Lab None recorded. Referral None recorded. Procedures None recorded. Surgeries None recorded. Imaging None recorded. Medication Orders fluticasone propionate 50 mcg/actuati on nasal spray,suspe nsion 2024 025 [facility]/Pharmacy #[id number], [address] [facility] [place], [address], 5 15:08:49 Patient TargetsNo targets recorded. Patient InstructionsNo instructions recorded. Reason for Referral None Reported. Problems Name Problem SNOMED Code Status Onset Date Resolution Date Notes Provider Name and Address Organization Details Recorded Time Acute tonsillit is 31662323 Active 2014 Tonsillit is, acute; [facility] Treatment : new problem (to examiner) : no additiona l workup planned N [place]: Date Diagnosed : 02/13/2015 1:39 PM (463) Not Available [facility] 4 02:47:42 Dysphasia 28916043 Active 2015 Dysphasia ; Note: Date Diagnosed : 12/15/2015 2:18 PM (R47.02) Not Available [facility] 4 02:47:41 Chronic disease of tonsils AND/OR adenoids 78877982 Active 2015 Calculus, tonsil; Note: Date Diagnosed : 10/15/2016 11:21 AM (J35.8) Not Available [facility] 4 02:47:36 Breath smells replaced by [facility] t 12202571 Active 2019 Halitosis ; Note: Date Diagnosed : 12/22/2019 10:47 AM (R19.6) WIL OLIVERA MD [address] [place] [address], [place], [phone] , [facility] - [facility] 5 15:06:39 Allergic rhinitis caused by pollen 54279088 Active 2024 WIL OLIVERA MD [address] [place], [place] [address], [address] , [facility] - [facility] [place] 5 15:07:29 Sensation of foreign body in throat 81815543392 9104 Active 2024 WIL OLIVERA MD [address] [place], [place] [address], [phone] , [facility] - [facility] [place] 5 12:13:58 Problem Notes None recorded. Procedures Surgical History Date Name Laterality Status Provider Name and Address Organization Details Recorded Time 07/21/20 25 Fiberoptic Laryngoscopy (Comprehensive) completed WIL OLIVERA MD [address] [place] [address], [phone], [facility] - [facility] 07/21/2025 15:06:31 Imaging Results None recorded. Procedure Notes None recorded. Medical Equipment None Reported. Allergies Allergen ID Allergen Name Allergen Category Reaction Reaction Severity Criticality Documentation Date Start Date Code Code System Note Provider Name and Address Organization Details Recorded Time 907203 shellfish derived food,medi cation Not available Not available Not available 07/21/2025 Marlyn zaman [place] - [facility] 15:02:51 Medications Name Sig Start Date Stop Date Status Note LastModified by Organization Details LastModified Time medbox status USE DIRECTED active Not Available Not Available No t Available lamotrigi ne 150 mg tablet TAKE 1 TABLET BY MOUTH AT BEDTIME active Not Available Not Available No t Available albuterol sulfate 2.5 mg/3 mL (0.083 %) solution for nebulizat ion 2014 active Medicati on ID: [id number] Br and Name: Albutero l Sulfate Send Method: E-Prescr ibed Sub s Allowed: subs OK Medic ationGen ericName : Albutero l Sulfate Not Available Not Available Not Available cetirizin e 10 mg tablet TAKE 1 TABLET EVERY EVENING active Not Available Not Available No t Available ketotifen 0.025 % (0.035 %) eye drops INSTILL 1 DROP INTO THE AFFECTED EYE(S) TWICE DAILY DIRECTED active Not Available Not Available No t Available Claritin 10 mg tablet Take 1 tablet by mouth once a day 12/22 completed Medicati on ID: [id number] Du ration Value: 30 Reason: () Brand Name: Claritin Send Method: E-Prescr ibed Sub s Allowed: subs OK Medic ationGen ericName : Claritin Not Available Not Available Not Available clonazepa m 1 mg tablet PLEASE SEE ATTACHED FOR DETAILED DIRECTIO NS active Not Available Not Available No t Available oxycodone 5 mg/5 mL oral solution 5-10 ml by mouth 07/21 completed Medicati on ID: [id number] D uration Value: 7 Prescri bed By Name: Aisha Tabor nd Name: oxycodon e Send Method: E-Prescr ibed Sub s Allowed: subs OK Medic ationGen ericName : oxycodon e Not Available Not Available Not Available omeprazol e 40 mg capsule,d elayed release 1 capsule by mouth 2015 active Medicati on ID: [id number] D uration Value: 30 Prescri bed By Name: ANGEL Deng nd Name: omeprazo le Send Method: E-Prescr ibed Sub s Allowed: subs OK Speci al Instruct ion: TAKE 1 CAPSULE EVERY DAY Medi cationGe nericNam e: omeprazo le Not Available Not Available Not Available trazodone 100 mg tablet TOME MINDA TABLETA POR V A ORAL TODOS LOS D AT BEDTIME NEEDED active Not Available Not Available No t Available doxycycli ne monohydra te 100 mg capsule TOME 1 C PSULA POR V A ORAL DOS VECES AL D A POR 7 D 07/21 completed Not Available Not Available Not Available pantopraz ole 40 mg tablet,de layed release TAKE 1 TABLET BY MOUTH TWICE DAILY IN THE MORNING AND IN THE EVENING active Not Available Not Available No t Available clonazepa m 2 mg tablet 07/21 completed Medicati on ID: [id number] B rand Name: clonazep am Send Method: E-Prescr ibed Sub s Allowed: subs OK Medic ationGen ericName : clonazep am Not Available Not Available Not Available Risperdal 3 mg tablet 07/21 completed Medicati on ID: [id number] B rand Name: Risperda l Send Method: E-Prescr ibed Sub s Allowed: subs OK Medic ationGen ericName : Risperda l Not Available Not Available Not Available monteluka st 10 mg tablet TAKE 1 TABLET AT BEDTIME active Not Available Not Available No t Available pravastat in 20 mg tablet TAKE 1 TABLET EVERY EVENING active Not Available Not Available No t Available hydrochlo rothiazid e 25 mg tablet TOME MINDA TABLETA POR V A ORAL CADA [place] active Not Available Not Available No t Available Pulmicort 0.25 mg/2 mL suspensio n for nebulizat ion 2014 active Medicati on ID: [id number] Br and Name: Pulmicor t Send Method: E-Prescr ibed Sub s Allowed: subs OK Medic ationGen ericName : Pulmicor t Not Available Not Available Not Available epinephri ne 0.3 mg/0.3 mL injection , auto-inje ctor INJECT INTRAMUS CULARLY DIRECTED ON PACKAGE AND GO TO EMERGENC Y ROOM active Not Available Not Available No t Available Naprosyn 500 mg tablet 12/22 completed Medicati on ID: [id number] Re ason: () Brand Name: Naprosyn Send Method: E-Prescr ibed Sub s Allowed: subs OK Medic ationGen ericName : Naprosyn Not Available Not Available Not Available fluticaso ne propionat e 50 mcg/actua tion nasal spray,neeraj pension SPRAY 2 SPRAYS EVERY DAY BY INTRANAS AL ROUTE, FOR 90. active Not Available Not Available No t Available clotrimaz ole 1 % topical cream APPLY TOPICALL Y TO AFFECTED AREA(S) TWICE DAILY FOR 28 DAYS 07/21 completed Not Available Not Available Not Available Ventolin HFA 90 mcg/actua tion aerosol inhaler INHALE 2 PUFFS EVERY 4 TO 6 HOURS NEEDED active Not Available Not Available No t Available Comp-Air Nebulizer Compresso r 2014 active Medicati on ID: [id number] Br and Name: Comp-Air Nebulize r Compress or Send Method: E-Prescr ibed Sub s Allowed: subs OK Medic ationGen ericName : Comp-Air Nebulize r Compress or Not Available Not Available Not Available bupropion HCl XL 300 mg 24 hr tablet, extended release TOME 1 TABLETA POR V A ORAL TODOS LOS D EN LA [place] active Not Available Not Available No t Available duloxetin e 60 mg capsule,d elayed release TOME 1 C PSULA POR V A ORAL CADA [place] active Not Available Not Available No t Available Symbicort 160 mcg-4.5 mcg/actua tion HFA aerosol inhaler INHALE 2 PUFFS BY MOUTH TWICE DAILY IN THE MORNING AND AT BEDTIME RINSE MOUTH AFTER USING. DO NOT SWALLOW active Not Available Not Available No t Available Symbicort 80 mcg-4.5 mcg/actua tion HFA aerosol inhaler INHALE 2 PUFFS TWICE DAILY IN THE MORNING AND IN THE EVENING. RINSE MOUTH AFTER USING. 07/21 completed Not Available Not Available Not Available cholecalc iferol (vitamin D3) 50 mcg (2,000 unit) tablet TAKE 1 TABLET BY MOUTH EVERY MORNING active Not Available Not Available No t Available Dulera 200 mcg-5 mcg/actua tion HFA aerosol inhaler 07/21 completed Medicati on ID: [id number] B rand Name: Duledel S end Method: E-Prescr ibed Sub s Allowed: subs OK Medic ationGen ericName : Dulera Not Available Not Available Not Available Vitals Date Recorded Body height Body mass index (BMI) Body weight Provider Name and Address Organization Details Last Updated DateTime 07/21/2025 162.56 cm 33.1 kg/m2 62126.33 g Marlyn Barnhart [place] - [facility] 07/21/2025 14:59:28 Social History None recorded. Functional Status None recorded. Mental Status None recorded. Family History Nothing Reported. Medical History Condition Response Anxiety Y Hypertension Y Depression Y Asthma Y Past Encounters Encounter ID Performer Location Encounter Start Date Encounter Closed Date Diagnosis/Indication Diagnosis SNOMED-CT Code Diagnosis ICD10 Code Diagnosis IMO Codes Diagnosis Note [id number] WIL OLIVERA MD [facility] on [address] [place] [phone] 07/21/2025 14:40:56 07/21/2025 15:17:35 Breath smells unpleasant 71324756 R19.6 72946 Allergic r hinitis caused by pollen 59237773 J30.1 80849183 Sensation of foreign body in throat 7631363188 50453 R09.A2 229358 Health Concerns Section Related Observation LastModified by Organization Detai ls LastModified Time None Recorded Concern Status LastModified by Organization Details LastModified Time None Recorded Payers Encounter Date Sequence Insurance Name Policy Number Policy Hugo Covered Member ID Hugo Member ID Guarantor Name 07/21/2025 1 [place] [facility] Billy Poole Jr [id number] Billy Poole Jr Notes Date Note Type Note Provider Name and Address Organization Details Recorded Time 07/21/2025 text/html 40-year-old male presents today for evaluation of halitosis. He was previously seen in our office in 2019. He has a history of tonsillectomy. He had workup by gastroenterology. He does have a history of allergies and has had IT. Previously on nasal sprays. No sinus infections. Feels food gets stuck. All the time. Others notice. Sometimes heartburn. On pantoprazole twice a day. Follows with GI. Uses mouth rinse, but does not recall what kind. No mouth breathing or TRAN. PV (2019): Again reviewed barium swallow without any findings to better direct a specific treatment. His oral cavity is unremarkable with excellent appearing dentition. I gave encouragement for the patient to continue the therapy outlined by his treating engineer helper. I do not believe I will be able to resolve his concerns, but he is doing a good job controlling his oral hygiene. he may follow-up with his primary care as needed. WIL OLIVERA MD [address] [place] [address], [place], [phone], [facility] - [facility] 07/24/2025 12:14:18
--- OUTSIDE RECORDS SUMMARY | 2025-09-29 10:59 | XMS_ITS | Encounter Summary ---
Author Organization [facility] Address [address] [place] [address] [place] [phone] Phone Care Team Providers Care Inspector P[employer] Name Role Phone Unknown, Unknown Primary Care Provider Opal kennedy Encounter Details Date Type Department Care Team ([facility] st Contact Info) Description 07/15/2024 Procedure Pass [facility], Ct Scan - [address] [address] Social History Tobacco Use Types Packs/Day Years [...] 3:48 PM EDT Kristal Mckinney RN * [place] Suicide Severity Rating Scale (Screener/Recent Self-Report) Question [...] on filedocumented in this encounter Care Teams Inspector [employer] Glass Container Relationship Specialty Start Date End Date Unknown, Unknown, PCP - General 01/11/19 documented as of this encounter Additional Source Comments The information contained in this document represents components of the legal health record. It is not the complete legal health record.[facility]
--- OUTSIDE RECORDS SUMMARY | 2025-09-29 10:59 | XMS_ITS | Clinical Summary ---
Author Organization [facility] Address [address] [place] [id number] Phone Care Team Providers Care Brand Coordinator Name Role Phone Unknown, Unknown Primary Care Provider Opal kennedy Allergies Active Allergy Reactions Criticality Noted Date Comments Shellfish Containing Products Hives,Shortness Of Breath,Erythema High 01/18/2025 Medications omeprazole (PRILOSEC) 20 MG capsule Take 1 capsule (20 mg total) by mouth 2 (two) times a day. 60 capsule 01/12/2019 Active Social History Tobacco Use Types Packs/Day Years [...] as food, clothing, or medical care? No 01/18/2025 In the past 12 months have y ou been in a relationship with a person who hurts, threatens, or tries to control you? No 01/18/2025 Are you denied basic needs s uch as food, clothing, or medical care? No 01/18/2025 In the past 12 months have y ou been in a relationship with a person who hurts, threatens, or tries to control you? No 01/18/2025 Sex and Gender Information Value Date Recorded Sex Assigned at Male 01/11/2019 11:29 PM EST Legal Sex Male 9:18 PM EDT Gender Identity Male 01/11/2019 11:29 PM EST Sexual Orientation Straight 02/26/2024 4: 53 AM EDT Last Filed Vital Signs Vital Sign Reading Time Taken Comments Blood Pressure 137/88 01/18/2025 12:30 PM EDT Pulse 97 01/18/2025 12:30 PM EDT Temperature 36.8 C (98.2 F) 01/18/2025 12:30 PM EDT Respiratory Rate 16 01/18/2025 12:30 PM EDT Oxygen Saturation 95% 01/18/2025 12:30 PM EDT Inhaled Oxygen Concentration - - Weight 85.9 kg (189 lb 6.4 oz) 01/18/2025 12:30 PM EDT Height 162.6 cm (5' 4 ) 01/18/2025 12:30 PM EDT Body Mass Index 32.51 01/18/2025 12:30 PM EDT Plan of Treatment Health Maintenance Due Date Last Done Comments DEPRESSION SCREENING 1995 HEPATITIS C SCREENING 2001 HIV ONE-TIME SCREENING (18-65 YEARS) 2001 SMOKING STATUS SCREENING (Once After 26 Yrs) 2009 INFLUENZA VACCINE (#1) 2025 , 10/19/2020, 08/21/2017, Additional history exists COVID-19 VACCINE ( season) 2025 05/15/2021, 04/17/2021 SCREENING FOR DIABETES 07/15/2027 07/15/2024 LIPID PANEL 07/01/2029 07/01/2024 Adult Td,Tdap Booster 10/19/2031 10/19/2021, 013 PNEUMOCOCCAL VACCINES (0-49 years) Aged Out 12/14/2012 No longer eligible based on patient's age to complete this topic HEPATITIS A VACCINES Aged Out No long er eligible based on patient's age to complete this topic HIB VACCINES Aged Out No longer eligi ble based on patient's age to complete this topic MENINGOCOCCAL VACCINES (ACWY) Aged Out No longer eligible based on patient's age to complete this topic MENINGOCOCCAL VACCINES (B) Aged Out N o longer eligible based on patient's age to complete this topic Medical Devices Not on file Insurance #[id number] [facility] [facility] [address] [place] [address] [address] [place] [address] [address] [address] [place] [address] [facility] [address] [place] [address] [facility] [address] [place] [address] [facility] Care Teams Brand Coordinator Relationship Specialty Start Date End Date Unknown, Unknown, PCP - General 01/11/19 Additional Source Comments The information contained in this document represents components of the legal health record. It is not the complete legal health record.[facility]
--- OUTSIDE RECORDS SUMMARY | 2025-09-29 10:59 | XMS_ITS | Data Portability ---
Author Organization [place] [facility], Allergy Address [address] [address] Care Team Providers Care Analytics Lead Name Role Phone MAYRA MYERS Primary Care Provider [phone] Assessment Encounter Date Assessment Date Assessment LastModified [...] mcg/actuati on nasal spray,suspe nsion [address] [facility] #[id number], [id number] [place], [address], 5 15:08:49 Patient TargetsNo targets recorded. Patient InstructionsNo instructions recorded. Reason for Referral None Reported. Problems Name Problem SNOMED Code Status Onset Date Resolution Date Notes Provider Name and Address Organization Details Recorded Time Acute tonsillit is 26362251 Active 2014 Tonsillit is, acute; [facility] Treatment : new problem (to examiner) : no additiona l workup planned N ote: Date Diagnosed : 02/13/2015 1:39 PM (463) Not Available [facility] 4 02:47:42 Dysphasia 38514994 Active 2015 Dysphasia ; Note: Date Diagnosed : 12/15/2015 2:18 PM (R47.02) Not Available [facility] 4 02:47:41 Chronic disease of tonsils AND/OR adenoids 12161912 Active 2015 Calculus, tonsil; Note: Date Diagnosed : 10/15/2016 11:21 AM (J35.8) Not Available [facility] 4 02:47:36 Breath smells [facility] t 11466897 Active 2019 Halitosis ; Note: Date Diagnosed : 12/22/2019 10:47 AM (R19.6) WIL OLIVERA MD [address] [place] [address], [place], [address] , [facility] - [facility] 5 15:06:39 Allergic rhinitis caused by pollen 72617589 Active 2024 WIL OLIVERA MD [address] [place] [address], [place], [address] , [facility] - [facility] 5 15:07:29 Sensation of foreign body in throat 57361697721 9104 Active 2024 WIL OLIVERA MD [address] [place] [address],[place] [address], [place], [address] , [facility] - [facility] 5 12:13:58 Problem Notes None recorded. Procedures Surgical History Date Name Laterality Status Provider Name and Address Organization Details Recorded Time 07/21/20 25 Fiberoptic Laryngoscopy (Comprehensive) completed WIL OLIVERA MD [address], [address], [facility] - [facility] 07/21/2025 15:06:31 Imaging Results None recorded. Procedure Notes None recorded. Medical Equipment None Reported. Allergies Allergen ID Allergen Name Allergen Category Reaction Reaction Severity Criticality Documentation Date Start Date Code Code System Note Provider Name and Address Organization Details Recorded Time 483373 shellfish derived food,medi cation Not available Not available Not available 07/21/2025 Marlyn zaman [place] [facility] 15:02:51 Medications Name Sig Start Date Stop [...] nebulizat ion 2014 active Medicati on ID: 00980 Br and Name: Albutero l Sulfate Send [...] a day 12/22 completed Medicati on ID: 48857 Du ration Value: 30 Reason: () Brand [...] by mouth 07/21 completed Medicati on ID: [id number] D uration Value: 7 Prescri bed By Name: Aisha Tabor nd Name: oxycodon e Send Method: E-Prescr ibed Sub s Allowed: subs OK Medic ationGen ericName : oxycodon e Not Available Not Available Not Available omeprazol e 40 mg capsule,d elayed release 1 capsule by mouth 2015 active Medicati on ID: [id number] D uration Value: 30 Prescri bed By [...] mg tablet 07/21 completed Medicati on ID: 218704 B rand Name: clonazep am Send Method: E-Prescr ibed Sub s Allowed: subs OK Medic ationGen ericName : clonazep am Not Available Not Available Not Available Risperdal 3 mg tablet 07/21 completed Medicati on ID: 519406 B rand Name: Risperda l Send Method: [...] nebulizat ion 2014 active Medicati on ID: 16360 Br and Name: Pulmicor t Send Method: [...] mg tablet 12/22 completed Medicati on ID: [id number] Re ason: () Brand Name: Naprosyn Send [...] Compresso r 2014 active Medicati on ID: 33302 Br and Name: Comp-Air Nebulize r Compress [...] aerosol inhaler 07/21 completed Medicati on ID: [id number] B rand Name: Erlin S end Method: E-Prescr ibed Sub s Allowed: subs OK Medic ationGen ericName : Dulera Not Available Not Available Not Available Vitals Date Recorded Body height Body mass index (BMI) Body weight Provider Name and Address Organization Details Last Updated DateTime 07/21/2025 162.56 cm 33.1 kg/m2 73541.33 g Marlyn Barnhart [place] - [facility] 07/21/2025 14:59:28 Social History None recorded. Functional Status None recorded. Mental Status None recorded. Family History Nothing Reported. Medical History Condition Response Anxiety Y Hypertension Y Depression Y Asthma Y Past Encounters Encounter ID Performer Location Encounter Start Date Encounter Closed Date Diagnosis/Indication Diagnosis SNOMED-CT Code Diagnosis ICD10 Code Diagnosis IMO Codes Diagnosis Note [id number] WIL OLIVERA MD [facility] on [address] [place] [address] 07/21/2025 14:40:56 07/21/2025 15:17:35 Breath smells unpleasant 81903781 R19.6 56955 Allergic r hinitis caused by pollen 65436543 J30.1 31462535 Sensation of foreign body in throat 6347794066 03164 R09.A2 963100 Health Concerns Section Related Observation LastModified by Organization Detai ls LastModified Time None Recorded Concern Status LastModified by Organization Details LastModified Time None Recorded Advance Directives Directive None Recorded Payers Insurance Date Sequence Insurance Name Policy Number Policy Hugo Covered Member ID Hugo Member ID Guarantor Name 07/21/2025 1 [place] Billy Poole Jr [id number] Billy Poole Jr Notes Date Note Type [...] to continue the therapy outlined by his community nutrition educator. I do not believe I will be able to resolve his concerns, but he is doing a good job controlling his oral hygiene. he may follow-up with his primary care as needed. WIL OLIVERA MD [address] [place] [address], [place], [address], [facility] - [facility] 07/24/2025 12:14:18
== END 2025-09-29 09:43 | disposition home or self-care (01) ==
LOC: HO.HGI 09:02
PROVIDERS: PCP Nurse Practitioner Primary Care; Visit Provider Nurse Practitioner
DX: K21.9 Gastro-esophageal reflux disease without esophagitis (principal); D36.9 Benign neoplasm, unspecified site; L83 Acanthosis nigricans; K22.10 Ulcer of esophagus without bleeding
CPT/HCPCS: 99213

== ENCOUNTER → 2025-09-29 09:01 | Outpatient (BNVA) | payer MEDICAID, SELFPAY | PROVIDERS: PCP Nurse Practitioner Primary Care; Visit Provider Nurse Practitioner | DX: K21.9 Gastro-esophageal reflux disease without esophagitis (principal); K22.10 Ulcer of esophagus without bleeding; L83 Acanthosis nigricans; D36.9 Benign neoplasm, unspecified site | CPT/HCPCS: 99212 ==

== ENCOUNTER 2025-10-12 10:35 | Outpatient (AMB) | payer MEDICAID, SELFPAY ==
--- NOTE | 2025-10-12 10:38 | MHC.OFFVIS ---
Intake Visit Reasons: 6m/UA Intake Note: Patient is present for 6M/UA Urology Medication:NONE Antibiotic Allergy:NONE Blood Thinner:NONE Selvage Machine Operator Required: No Allergies shellfish derived (SHELLFISH DERIVED) Allergy (Severe, Verified 10/12/25 11:04) ANAPHYLAXIS No Known Drug Allergies Allergy (Mild, Verified 10/12/25 11:04) Unknown Medication List - Last Reconciled 10/12/25 by Charlene Schmidt MANAGER AUTOMOTIVE- budesonide-formoterol 160-4.5 mcg/actuation (Symbicort) 2 puffs inhalation bupropion HCl XL 300 mg PO QAM cetirizine 10 mg PO QAM cholecalciferol (vitamin D3) 50 mcg PO QAM clonazepam 1 mg PO TID PRN diphenhydramine HCl (Benadryl) 50 mg (2 x 25 mg) PO Q6-8H PRN duloxetine 60 mg PO QAM epinephrine (EpiPen 2-Denny) 0.3 mg (0.3 mL) IM Q4H PRN fexofenadine (Allergy Relief (fexofenadine)) 180 mg PO DAILY PRN fluticasone propionate 110 mcg/actuation (Flovent HFA) 1 puff inhalation BID hydrochlorothiazide 25 mg PO DAILY ketotifen fumarate 0.025%(0.035%) 1 drp ophthalmic (eye) BID lamotrigine 150 mg PO BEDTIME metoclopramide HCl (Reglan) 5 mg PO QIDACHS montelukast (Singulair) 10 mg PO DAILY pravastatin 20 mg PO BEDTIME sertraline 25 mg PO DAILY trazodone 100 mg PO DAILY venlafaxine ER 150 mg PO BEDTIME venlafaxine ER 75 mg PO QAM vonoprazan 20 mg PO BID HPI Comments Details: Billy is a very pleasant 40-year-old male patient of Dr. Arguello. He has a past medical history of allergic rhinitis, hypercholesteremia, hypertension, bipolar disorder, depression, anxiety, GERD, and asthma. He presents to the office today for follow-up of his microscopic hematuria. In discussion with the patient today he reports to be doing and feeling well. He denies having had any bothersome urinary issues or concerns. In office urinalysis results reviewed with the patient today 1+ microscopic hematuria. Previous workup has included a retroperitoneal ultrasound 04/03 notes bilateral kidneys are normal in thickness and echotexture. There is no hydronephrosis noted bilaterally. There is 11 mm upper pole left renal cysts. The urinary bladder is unremarkable. Pre void bladder volume is approximately 560 mL. Postvoid bladder volume is approximately 45 mL. The prostate measures 12 mL. He denies any previous history of workplace chemical exposure and or nicotine dependence. We discussed and reviewed again potential causes of microscopic hematuria. I discussed reasons for blood in the urine may include but are not limited to kidney stones, cancer in the urinary tract, BPH, kidney stone disease or inflammatory conditions of the urinary tract. I have discussed workup to include cystoscopy evaluation. He otherwise denies any bothersome urinary issues. He reports be happy with current voiding parameters. He denies urinary urgency, urinary frequency, incontinence, nocturia, hematuria, dysuria, foul smelling urine, changes to urinary stream, flank pain, fever, and or chills. All questions were answered. He otherwise offers no other issues or concerns at this time. Urine cytology: 02/01 & 05/04: Negative for high-grade urothelial carcinoma. [facility] Medical History Allergic rhinitis High cholesterol HTN (hypertension), benign Bipolar disorder Papilloma Oropharyngeal dysphagia Depression with anxiety GERD (gastroesophageal reflux disease) Asthma Surgical History H/O esophagogastroduodenoscopy Hx of tonsillectomy Family History Father Asthma Hypertension Mother Asthma Hypertension Brother Alive and well Social History Household Members: Spouse and Children Alcohol intake: never Patient Tobacco Use Status: Never used Tobacco Advance Directives Date on File: 12/11/20 Current occupational status: disabled Review of Systems Const All systems reviewed & are unremarkable except as noted in HPI and below Physical Exam Const General: cooperative, healthy appearing, comfortable, no acute distress, well developed, alert and awake Orientation/consciousness: patient oriented x3 Limitations: no limitations HEENT Head: Yes normal to inspection, Yes normocephalic and Yes atraumatic Ears: hearing grossly normal bilaterally Eyes General: appearance normal, both eyes and all related structures Neck Neck: Yes normal visual inspection and Yes trachea midline Chest Chest palpation & inspection: normal inspection of the chest Resp Effort & Inspection: normal respiratory effort and able to speak in complete sentences Cardio Rate: regular rate GI Inspection: Yes normal to inspection General: Yes no CVA tenderness Back/Spine/Pelvis Back: no CVA tenderness Skin General skin exam: no rashes or lesions noted Neuro General: patient oriented x3 Extrem General: Yes normal to inspection Psych Appearance: grossly normal and well kempt Mental Status: mental status grossly normal Speech and movement: Normal speech and movement present and Clear speech present Affect: normal affect Attitude: cooperative and Avoids eye contact (attititude/behavior) Thought process: Normal thought process present Thought content: Normal thought content present Insight: Fair insight present (Psych) Judgement: Fair judgement present (Psych) Results AMB Urinalysis, Automated UA Leukoctes 0 Katrin/uL Last Edit by Kezia Boyce CCM on 10/12/25 10:50 UA Nitrite Negative Last Edit by Kezia Boyce CCM on 10/12/25 10:50 UA Urobilinogen 0.2 mg/dL Last Edit by Kezia Boyce CCM on 10/12/25 10:50 UA Protein 0 mg/dL Last Edit by Kezia Boyce CCM on 10/12/25 10:50 UA pH 6.0 Last Edit by Kezia Boyce CCM on 10/12/25 10:50 UA Blood 25 Luis Manuel/uL Last Edit by Kezia Boyce CCM on 10/12/25 10:50 UA Specific [place] 1.010 Last Edit by Kezia Boyce CCM on 10/12/25 10:50 UA Ketone Negative Last Edit by Kezia Boyce CCM on 10/12/25 10:50 UA Bilirubin 0 mg/dL Last Edit by Kezia Boyce CCM on 10/12/25 10:50 UA Glucose 0 mg/dL Last Edit by Kezia Boyce [facility] on 10/12/25 10:50 Results Reviewed Results Reviewed: Laboratory Last Values Urine pH (Auto) 6.0 10/12/25 10:43 Specific [place] (Auto) 1.010 12/03/25 10:43 Urine Protein (Auto) 0 mg/dL 10/12/25 10:43 Glucose (UA)(Auto) 0 mg/dL 10/12/25 10:43 Urine Ketones (Auto) Negative 10/12/25 10:43 Urine Blood (Auto) 25 Luis Manuel/uL 10/12/25 10:43 Urine Nitrite (Auto) Negative 10/12/25 10:43 Urine Bilirubin (Auto) 0 mg/dL 10/12/25 10:43 Urine Urobilinogen (Auto) 0.2 mg/dL 10/12/25 10:43 Leukocyte Esterase (Auto) 0 Katrin/uL 10/12/25 10:43 Assessment & Plan Assessment & Plan (1) Microscopic hematuria: Code(s): R31.29 - Other microscopic hematuria Category: Medical (2) Renal cyst: Code(s): N28.1 - Cyst of kidney, acquired Category: Medical Plan In office urinalysis results with the patient today; as noted above. Previous urine cytology results reviewed with the patient today; as noted above. We discussed potential causes of microscopic hematuria as well as further workup in risks and benefits of these interventions. He currently denies any bothersome urinary issues or concerns. He reports be happy with current voiding parameters. Will continue with surveillance monitoring. Follow-up in 1 year with urinalysis; or sooner with any issues, concerns, and or questions. Orders: Orders AMB Urinalysis Automated Today Z13.9 - Encounter for screening, unspecified Urine Cytology Today R31.29 - Other microscopic hematuria Patient Instructions: The patient had an opportunity to ask questions regarding the treatment plan. All questions were answered. Physical exam, labs, and imaging were discussed and reviewed in detail. As well as risks, benefits, and discussion of treatment choices. No major barriers to understanding were identified. The patient expressed understanding and agreement with the above treatment plan. The patient was made aware they should contact our office by phone for worsening of their current condition, the appearance of new symptoms, or with any questions or concerns. Compliance is encouraged with any medications and follow up testing that is ordered. It is a privilege to be allowed the opportunity to participate in? your urological care.? Again, if you have any questions or concerns If you have any questions or concerns please do not hesitate to contact me. The office is [phone]. This note is constructed using voice recognition software. While every effort has been made to ensure accuracy supervisor farm equipment maintenance errors may have been included. Yours sincerely, MO Keene-BC Coding Level of Care Code Est Pt Level 3 (22170) Diagnoses Microscopic hematuria R31.29 Renal cyst N28.1
--- OUTSIDE RECORDS SUMMARY | 2025-10-12 12:10 | XMS_ITS | Clinical Summary ---
Author Organization [facility] Address [address] [place] [address] Phone Care Team Providers Care Professor Of Art Name Role Phone Unknown, Unknown Primary Care [...] Medical Devices Not on file Insurance #[id number] [employer] [employer] [address] [place] [address] [address] [address] [place] [address] [address] [address] [place] [address] [employer] [address] [place] [address] [employer] [address] [place] [address] [facility]CO [facility] A[employer] Care Teams Professor Of Art Relationship Specialty Start Date End Date Unknown, Unknown, PCP - General 01/11/19 Additional Source Comments The information contained in this document represents components of the legal health record. It is not the complete legal health record.[facility]
--- OUTSIDE RECORDS SUMMARY | 2025-10-12 12:10 | XMS_ITS | Clinical Summary ---
Author Organization [employer] Address [address] [facility] 7t [place] [address] Care Team Providers Care Sumac Tanner Name Role Phone Carolina Arguello Primary Care Provider [phone] Charlene Schmidt CENTER MACHINE SET UP OPERATOR Unavailable February Unavailable Allergies Active Allergy Reactions Criticality Noted Date Comments Shellfish Protein-Containing Drug Products Anaphylaxis High 01/17/2022 Squid Oil Anaphylaxis High 08/16/2025 Medications fluticasone (Flonase) 50 MCG/ACT nasal sprayIndications:N on-seasonal allergic rhinitis, unspecified trigger INHALE 1 SPRAY IN EACH NOSTRIL TWICE DAILY 16 g 11 11/15/19 23 Active albuterol (Ventolin HFA) 108 (90 Base) MCG/ACT inhalerIndications :Wheezing INHALE 2 PUFFS BY MOUTH EVERY 4 TO 6 HOURS NEEDED 18 g 5 05/31/20 24 Active buPROPion XL (Wellbutrin XL) 300 MG 24 hr tablet Take 300 mg by mouth in the morning. 06/08/20 24 Active DULoxetine (Cymbalta) [address] capsule Take 60 mg by mouth in the morning. 06/08/20 24 Active lamoTRIgine (LaMICtal) 150 MG tablet Take 1 tablet by mouth at bedtime. 06/08/20 24 Active traZODone (Desyrel) 100 MG tablet Take 100 mg by mouth if needed at bedtime. Active EPINEPHrine (Epipen) 0.3 MG/0.3ML injection syringeIndications :Shellfish allergy Inject 0.3 mL (0.3 mg) as directed 1 (one) time if needed for anaphylaxis for up to 1 dose. Inject into upper leg. Call 911 after use. 2 each 06/29/20 24 Active budesonide-formote rol (Symbicort) 160-4.5 MCG/ACT inhalerIndications :Moderate persistent asthma without complication Inhale 2 puffs in the morning and at bedtime. Rinse mouth with water after use to reduce aftertaste and incidence of candidiasis. Do not swallow. 1 each 11/11/19 25 026 Active hydroCHLOROthiazid e (HYDRODiuril) 25 MG tabletIndications: Benign essential HTN Take 1 tablet (25 mg) by mouth in the morning. 90 tablet 1 05/12/20 25 Active Ketotifen Fumarate 0.035 % solutionIndication s:Allergic conjunctivitis, unspecified laterality INSTILL 1 DROP INTO THE AFFECTED EYE(S) TWICE DAILY DIRECTED 5 mL 5 06/30/20 25 Active pravastatin (Pravachol) 20 MG tabletIndications: Hyperlipidemia, unspecified hyperlipidemia type TAKE 1 TABLET BY MOUTH EVERY EVENING 90 tablet 3 07/14/20 25 Active montelukast (Singulair) 10 MG tabletIndications: Uncomplicated asthma, unspecified asthma severity, unspecified whether persistent TAKE 1 TABLET BY MOUTH AT BEDTIME 90 tablet 1 07/14/20 25 Active cholecalciferol VITAMIN D (Vitamin D-3) 50 MCG (1999 UT) tabletIndications: Vitamin D deficiency TAKE 1 TABLET BY MOUTH EVERY MORNING 90 tablet 1 08/15/20 25 Active fexofenadine (Kristi) 180 MG tabletIndications: Non-seasonal allergic rhinitis due to other allergic trigger Take 1 tablet (180 mg) by mouth if needed each day (Allergies). 90 tablet 1 08/16/20 25 026 Active esomeprazole (NexIUM) [address] capsuleIndications :Gastroesophageal reflux disease without esophagitis Take 1 capsule (40 mg) by mouth before breakfast. Do not open capsule. 60 capsule 2 09/27/2025 9:16 AM EST 08/16/20 25 026 Active clonazePAM (KlonoPIN) 1 MG tablet PLEASE SEE ATTACHED FOR DETAILED DIRECTIONS 07/31/20 25 Active Active Problems Problem Noted Date [...] can consolidate to use this as SMART (vjjktx-eytarrcvosf-nwp-reliever-therapy) Needs new nebulizer for use when sick. Will send. DME rx. Mixed anxiety and depressive disorder 04/30/2012 Encounters Date Type Department Care Team Description 09/30/2025 Travel 09/27/2025 Orders Only [facility] [address] [place] [address] Carolina Arguello ANP 09/23/2025 Travel 09/02/2025 Telephone [facility] [address] [place] [address] Carolina Arguello ANP November08/23/2025 Travel 08/16/2025 11:30 AM EDT Office Visit [facility] [address] [place] [address] Carolina Arguello ANP Essential hypertension (Primary Dx); Encounter for immunization; Non-seasonal allergic rhinitis due to other allergic trigger; Gastroesophageal reflux disease without esophagitis; Moderate persistent asthma without complication; Mixed anxiety and depressive disorder; Rash 08/16/2025 Travel 08/15/2025 Telephone [facility] [address] [place] [address] Carolina Arguello ANP chart prep 08/15/2025 Refill [facility] [address] [place] [address] Carolina Arguello ANP Vitamin D deficiency 08/15/2025 Travel 08/09/2025 Patient Outreach [facility] [address] [place] [address] Carolina Arguello ANP Pre-visit Planning (SDOH screening negative and Tobacco screening negative) 07/14/2025 Refill [facility] [address] [place] [address] Carolina Arguello ANP Hyperlipidemia, unspecified hyperlipidemia type; Uncomplicated asthma, unspecified asthma severity, unspecified whether persistent; Non-seasonal allergic rhinitis due to other allergic trigger from Last 3 Months Immunizations Immunization Administration Dates Next Due Hep B, adult 09/30/2025,05/12/2025 Influenza injectable quadriv alent IIV4 with preservative 07/25/2016,10/02/2015 Influenza injectable quadriv alent preservative free 08/23/2021,10/19/2020,08/21/2017 Influenza, IIV3, injectable 07/27/2014,0 08/07/2010,08/18/2009,08/28,10/23/2006,11/15/2005 Influenza, Split (incl. gilberto fied surface antigen) 09/03/2013,12/14/2012 Influenza, seasonal, injecta ble, preservative free 08/16/2025,11/11/2024 Pneumococcal Conjugate PCV 20 11/11/2024 Pneumococcal Polysaccharide [...] Sign Reading Time Taken Comments Blood Pressure 130/82 09/30/2025 12:22 PM EST Pulse 84 09/30/2025 12:22 PM EST Temperature 36.8 C (98.3 F) 08/16/2025 11:25 AM EDT Respiratory Rate 13 08/16/2025 11:25 AM EDT Oxygen Saturation 96% 08/16/2025 11:25 AM EDT Inhaled Oxygen Concentration - - Weight 87.3 kg (192 lb 8 oz) 08/16/2025 11:25 AM EDT Height 160 cm (5' 3 ) 08/16/2025 11:25 AM EDT Body Mass Index 34.1 08/16/2025 11:25 AM EDT Plan of Treatment Upcoming Encounters Date Type Department Care Team (Late st Contact Info) Description 11/17/2025 10:00 AM EST Office Visit [facility] [address] [place] [address] Carolina Arguello, SHAINA [address] [place] [address] Health Maintenance Due Date Last Done Comments HPV Vaccines (1 - Male 3-dose series) 1998 COVID-19 Vaccine (3 - season) 2025 05/15/2021, 04/17/2021 Depression Monitoring 11/12/2025 05/12/2025, 025 Hepatitis B Vaccines (3 of 3 - 19+ 3-dose series) 11/25/2025 09/30/2025, 05/12/2025 Alcohol/Substance Use Screening 05/12/2026 05/12/2025 Family Planning (PISQ) 05/12/2026 05/12/2025 SDOH Screening 08/09/2026 08/09/2025 Disability Screening 08/15/2026 08/15/2025 Tobacco Screening 08/16/2026 08/16/2025 Lipid Panel 09/27/2030 09/27/2025, 06/11, 10/23/2021, Additional history exists DTaP/Tdap/Td Vaccines (3 - Td or Tdap) 10/19/2031 10/19/2021, 09/03/2013 Zoster Vaccines (1 of 2) 2033 RSV Patients and Patients Aged 60 years or older (1 - 1-dose 75+ series) 2058 Pneumococcal Vaccine: Pediatrics (0 to 5 Years) and At-Risk Patients (6 to 49) Years Completed 11/11/2024, 12/14/2012 HIV Screening Completed 06/09/2025, 06/11, 10/23/2021 Hepatitis C Screening Completed 06/09/2025 , 07/01/2024, 10/23/2021 Influenza Vaccine Completed 08/16/2025, , 08/23/2021, Additional history exists HIB Vaccines Aged Out No longer eligi [...] Procedure Name Priority Date/Time Associated Diagnosis Comments LIPID PANEL, STANDARD Routine 09/27/2025 8:51 AM EST AMB REFERRAL TO ENT Routine 07/24/2025 Halitosis HEPATITIS C AB W/REFL TO HCV RNA, QN, PCR Routine 06/09/2025 12:25 PM EDT Routine screening for STI (sexually transmitted infection) HIV 1/2 ANTIGEN/ANTIBODY, FOURTH GENERATION W/RFL Routine 06/09/2025 12:25 PM EDT Routine screening for STI (sexually transmitted infection) from Last 3 Months or Most Recently Relevant to Health Maintenance Results * (ABNORMAL) Lipid Panel, Standard (09/27/2025 8:51 AM EST) Triglycerides 192(H) <150 mg/dL [facility] Comment:Desirable Triglyceri de: less than 150 mg/dLBorderline High Triglyceride 150-199 mg/dLHigh Triglyceride: 200-499 mg/dLVery High Triglyceride: greater than or equal to 5OO mg/dL Cholesterol 193 <200 mg/dL [facility] Comment:Desirable Cholestero l: less than 200 mg/dLBorderline High Cholesterol: 200-239 mg/dLHigh Cholesterol: greater than 239 mg/dL LDL Cholesterol Calculated 116(H) <100 mg/dL [facility] Comment:Desirable LDL: less than 100 mg/dLNear Optimal/Above Optimal LDL: 110- 129 mg/dLBorderline High LDL: 130-159 mg/dLHigh LDL: 160-189 mg/dLVery High LDL: greater than or equal to 190 mg/dL HDL Cholesterol 39(L) >40 mg/dL [facility] Comment:Desirable HDL: great er than 40 mg/dL Note: This HDL assay may give artificially low results in patients with liver disease. 09/27/2025 8:51 AM EST 09/27/2025 11:40 AM EST Carolina Arguello [facility] BLOOD ORDERABLES Final Resul t Performing Organization Address [facility] de Phone Number [facility] [address] [place] [phone] * Referral to ENT (07/24/2025) Carolina Arguello [facility] OUTPATIENT REFERRAL ORDERABLES F inal Result * Hepatitis C Antibody with Reflex to HCV, RNA, Quantitative, Real-Time PCR (06/09/2025 12:25 PM EDT) Hepatitis C Antibody Nonreactive Nonreactive [facility] Comment:Antibodies to HCV no t detected; does not exclude early acuteHCV infection. Blood Venous blood specimen / Unknown 06/09/2025 12:25 PM EDT 06/09/2025 12:57 PM EDT Carolina [facility] LAB BLOOD ORDERABLES Final Resul t Performing Organization Address [facility] de Phone Number [facility] [address] [place] [phone] * HIV-1/2 Antigen and Antibodies, Fourth Generation, with Reflexes (06/09/2025 12:25 PM EDT) HIV AB/AG Nonreactive Nonreactive [facility] Comment:HIV-1 p24 Ag and/or HIV-1/HIV-2 Ab not detected.A test result that is nonreactive does not exclude thepossibility of exposure to or infection with HIV-1 and/orHIV-2. Nonreactive results in this assay for individualswith prior exposure to HIV-1 and/or HIV-2 may be due toantigen and antibody levels that are below the limit ofdetection of this assay.The [employer] Alinity HIV Ag/Ab Combo assay result andsupplemental assay results should be interpreted inconjunction with the patient's clinical presentation,history and other laboratory results. If the results areinconsistent with clinical evidence, additional testing issuggested to confirm the result. Blood Venous blood specimen / Unknown 06/09/2025 12:25 PM EDT 06/09/2025 12:57 PM EDT Carolina [facility] LAB BLOOD ORDERABLES Final Resul t [facility] [address] [place] [address] [phone] from Last 3 Months or Most Recently Relevant to Health Maintenance Insurance Emair C3 Care Teams Sumac Tanner Relationship Specialty Start Date End Date Carolina Arguello ANP [address] [place] [address] PCP - General Family Medicine 06/15/20 Charlene Schmidt NP [address] [place] [address] Urology 05/02/25 Sia Melissa [address] 3rd [place] [address] Gastroenterology 05/12/25
--- OUTSIDE RECORDS SUMMARY | 2025-10-12 12:10 | XMS_ITS | Encounter Summary ---
Author Organization [facility] Address [address] [place] [address] [place] [address] Phone Care Team Providers Care Remote Medical Coder Name Role Phone Unknown, Unknown Primary Care Provider Opal kennedy Encounter Details Date Type Department Care Team ([facility] st Contact Info) Description 07/15/2024 Procedure Pass [facility], Ct Scan - [address] [address] Social History Tobacco Use Types Packs/Day Years [...] 3:48 PM EDT Kristal Mckinney RN * [place] Suicide Severity Rating Scale (Screener/Recent Self-Report) Question [...] on filedocumented in this encounter Care Teams Remote Medical Coder Relationship Specialty Start Date End Date Unknown, Unknown, PCP - General 01/11/19 documented as of this encounter Additional Source Comments The information contained in this document represents components of the legal health record. It is not the complete legal health record.[facility]
--- OUTSIDE RECORDS SUMMARY | 2025-10-12 12:10 | XMS_ITS | Data Portability ---
Author Organization [place] [facility], All[facility] Address [address] [address] Care Team Providers Care Research Program Assistant Name Role Phone MAYRA MYERS Primary Care Provider [phone] Assessment Encounter Date Assessment Date Assessment LastModified [...] mcg/actuati on nasal spray,suspe nsion 2024 025 [facility][id number], [address] [place], [address], 5 15:08:49 Patient TargetsNo targets recorded. Patient InstructionsNo instructions recorded. Reason for Referral None Reported. Problems Name Problem SNOMED Code Status Onset Date Resolution Date Notes Provider Name and Address Organization Details Recorded Time Acute tonsillit is 68905143 Active 2014 Tonsillit is, acute; [facility] Treatment : new problem (to examiner) : no additiona l workup planned N ote: Date Diagnosed : 02/13/2015 1:39 PM (463) Not Available [facility] 4 02:47:42 Dysphasia 85698447 Active 2015 Dysphasia ; Note: Date Diagnosed : 12/15/2015 2:18 PM (R47.02) Not Available [facility] 4 02:47:41 Chronic disease of tonsils AND/OR adenoids 86129242 Active 2015 Calculus, tonsil; Note: Date Diagnosed : 10/15/2016 11:21 AM (J35.8) Not Available [facility] 4 02:47:36 Breath smells [facility] t 36506424 Active 2019 Halitosis ; Note: Date Diagnosed : 12/22/2019 10:47 AM (R19.6) WIL OLIVERA MD [address] [place] [address], [place], [phone] , [facility] - [facility] 5 15:06:39 Allergic rhinitis caused by pollen 61050844 Active 2024 WIL OLIVERA MD [address] [place] [address], [place], [phone] , [facility] - [facility] 5 15:07:29 Sensation of foreign body in throat 86817017177 9104 Active 2024 WIL OLIVERA MD [address] [place] [address],[place] [address], [place], [address] , [facility] - [facility] 5 12:13:58 Problem Notes None recorded. Procedures Surgical History Date Name Laterality Status Provider Name and Address Organization Details Recorded Time 07/21/20 25 Fiberoptic Laryngoscopy (Comprehensive) completed WIL OLIVERA MD [address], [address], [facility] - [facility] 07/21/2025 15:06:31 Imaging Results None recorded. Procedure Notes None recorded. Medical Equipment None Reported. Allergies Allergen ID Allergen Name Allergen Category Reaction Reaction Severity Criticality Documentation Date Start Date Code Code System Note Provider Name and Address Organization Details Recorded Time 623863 shellfish derived food,medi cation Not available Not available Not available 07/21/2025 Marlyn zaman [place] [facility] 15:02:51 Medications Name Sig Start Date [...] nebulizat ion 2014 active Medicati on ID: [id number] Br and Name: Albutero l Sulfate Send [...] a day 12/22 completed Medicati on ID: 96890 Du ration Value: 30 Reason: () Brand [...] by mouth 07/21 completed Medicati on ID: 077299 D uration Value: 7 Prescri bed By Name: Aisha Tabor nd Name: oxycodon e Send Method: E-Prescr ibed Sub s Allowed: subs OK Medic ationGen ericName : oxycodon e Not Available Not Available Not Available omeprazol e 40 mg capsule,d elayed release 1 capsule by mouth 2015 active Medicati on ID: 656808 D uration Value: 30 Prescri bed By [...] mg tablet 07/21 completed Medicati on ID: 762780 B rand Name: clonazep am Send Method: E-Prescr ibed Sub s Allowed: subs OK Medic ationGen ericName : clonazep am Not Available Not Available Not Available Risperdal 3 mg tablet 07/21 completed Medicati on ID: 143936 B rand Name: Risperda l Send Method: [...] nebulizat ion 2014 active Medicati on ID: 11081 Br and Name: Pulmicor t Send Method: [...] mg tablet 12/22 completed Medicati on ID: 39200 Re ason: () Brand Name: Naprosyn Send [...] Compresso r 2014 active Medicati on ID: 35235 Br and Name: Comp-Air Nebulize r Compress [...] aerosol inhaler 07/21 completed Medicati on ID: 853095 B rand Name: Erlin S end Method: E-Prescr ibed Sub s Allowed: subs OK Medic ationGen ericName : Dulera Not Available Not Available Not Available Vitals Date Recorded Body height Body mass index (BMI) Body weight Provider Name and Address Organization Details Last Updated DateTime 07/21/2025 162.56 cm 33.1 kg/m2 76858.33 g Marlyn Barnhart [place] - [facility] 07/21/2025 14:59:28 Social History None recorded. Functional Status None recorded. Mental Status None recorded. Family History Nothing Reported. Medical History Condition Response Anxiety Y Hypertension Y Depression Y Asthma Y Past Encounters Encounter ID Performer Location Encounter Start Date Encounter Closed Date Diagnosis/Indication Diagnosis SNOMED-CT Code Diagnosis ICD10 Code Diagnosis IMO Codes Diagnosis Note [id number] WIL OLIVERA MD [facility] on [address] [place] [address] 07/21/2025 14:40:56 07/21/2025 15:17:35 Breath smells unpleasant 51965359 R19.6 31634 Allergic r hinitis caused by pollen 88616785 J30.1 29122534 Sensation of foreign body in throat 9476287266 11844 R09.A2 188016 Health Concerns Section Related Observation LastModified by Organization Detai ls LastModified Time None Recorded Concern Status LastModified by Organization Details LastModified Time None Recorded Advance Directives Directive None Recorded Payers Insurance Date Sequence Insurance Name Policy Number Policy Hugo Covered Member ID Hugo Member ID Guarantor Name 10/10/2025 1 [place] Billy Poole Jr [id number] Billy Poole Jr Notes Date Note Type [...] to continue the therapy outlined by his hiv nurse. I do not believe I will be able to resolve his concerns, but he is doing a good job controlling his oral hygiene. he may follow-up with his primary care as needed. WIL OLIVERA MD [address] [place] [address], [place], [address], [facility] - [facility] 07/24/2025 12:14:18
--- OUTSIDE RECORDS SUMMARY | 2025-10-12 12:10 | XMS_ITS | Encounter Summary ---
Author Organization [employer] [facility] Address [address] [place] [address] 7t [place] [address] Care Team Providers Care Public Health Assistant Name Role Phone Carolina Arguello Primary Care Provider [phone] Charlene Schmidt ELEVATOR STARTER Unavailable February Unavailable Reason for Visit * Reason Onset Date Comments Reschedule 03/23/2024 Encounter Details Date Type Department Care Team (Late Contact Info) Description 03/23/2024 Telephone [facility] [address] [place] [phone] Carolina Arguello ANP [address] [place] [address] [phone] Reschedule Social History Tobacco Use Types Packs/Day [...] Encounters Date Type Department Care Team (Late Contact Info) Description 11/17/2025 10:00 AM EST Office Visit [facility] [address] [place] [address], [place] [address] Carolina Arguello ANP [address] [place] [address] documented as of this encounter Visit Diagnoses Not on filedocumented in this encounter Care Teams Public Health Assistant Relationship Specialty Start Date End Date Carolina Arguello ANP [address] [place] [address] PCP - General Family Medicine 06/15/20 Charlene Schmidt NP [address] [place] [address] Urology 05/02/25February [address] 3rd [place] [address] Gastroenterology 05/12/25 documented as of this encounter
--- OUTSIDE RECORDS SUMMARY | 2025-10-12 12:10 | XMS_ITS | Encounter Summary ---
Author Organization [employer] Address [address] [facility] 7t [place] [address] Care Team Providers Care Section Forest Fire Warden Name Role Phone Carolina Arguello Primary Care Provider [phone] Charlene Shcmidt CRAFT ARTIST Unavailable February Unavailable Reason for Visit * Reason Onset Date Comments Appointment Request 01/19/2024 Encounter Details Date Type Department Care Team ([facility] st Contact Info) Description 01/19/2024 Telephone [facility] MEDICINE [address] [place] [address] Carolina Arguello ANP [address] [place], [place] [phone] Appointment Request Social History Tobacco Use Types [...] Arguello above. No answer. LM in both Lithuanian and Gabonese that we have a message from his [...] Description 11/17/2025 10:00 AM EST Office Visit [facility] MEDICINE [address] [place] [address] Carolina Arguello ANP [address] [place] [address] documented as of this encounter Visit Diagnoses Not on filedocumented in this encounter Care Teams Section Forest Fire Warden Relationship Specialty Start Date End Date Carolina Arguello ANP [address] [place] [address] PCP - General Family Medicine 06/15/20 Charlene Schmidt NP [address] [place] [address] Urology 05/02/25February [address] 3rd [place] [address] Gastroenterology 05/12/25 documented as of this encounter
--- OUTSIDE RECORDS SUMMARY | 2025-10-12 12:10 | XMS_ITS | Encounter Summary ---
Author Organization [employer] Address [address] [facility] 7t [place] [address] Care Team Providers Care Facility Manager Name Role Phone Carolina Arguello Primary Care Provider [phone] Charlene Schmidt SPRAY II PAINTER Unavailable February Unavailable Reason for Visit * Reason Onset Date Comments Medication Question 12/10/2023 Encounter Details Date Type Department Care Team ([facility] Contact Info) Description 12/10/2023 Telephone [facility] MEDICINE [address] [place] [address] Carolina Arguello ANP [address] [place], [place] [phone] Medication Question Social History Tobacco Use Types [...] any questions you can contact pt at [phone]. documented in this encounter Plan of Treatment Upcoming Encounters Date Type Department Care Team ([facility] Contact Info) Description 11/17/2025 10:00 AM EST Office Visit [facility] MEDICINE [address] [place] [address] Carolina Arguello ANP [address] [place] [address] documented as of this encounter Visit Diagnoses Not on filedocumented in this encounter Care Teams Facility Manager Relationship Specialty Start Date End Date Carolina Arguello ANP [address] [place] [address] PCP - General Family Medicine 06/15/20 Charlene Schmidt NP [address] [place] [address] Urology 05/02/25February [address]rd [place] [address] Gastroenterology 05/12/25 documented as of this encounter
--- OUTSIDE RECORDS SUMMARY | 2025-10-12 12:10 | XMS_ITS | Encounter Summary ---
Author Organization [facility] Address [address] [place] [address] [address] [place] [address] Care Team Providers Care Nuclear Pharmacist Name Role Phone Carolina Arguello Primary Care Provider [phone] Charlene Schmidt TOBACCO SCRAP SIFTER Unavailable February Unavailable Reason for Visit * Reason Comments Med Refill Encounter Details Date Type Department Care Team (Late st Contact Info) Description 11/23/[address] [facility] [address] [place] [phone] Carolina Arguello ANP [address] [place] [phone] Vitamin D deficiency Social History Tobacco Use [...] Description 11/17/2025 10:00 AM EST Office Visit [facility] [address] [place] [phone] Carolina Arguello ANP [address] [place] [phone] documented as of this encounter Visit Diagnoses Diagnosis Vitamin D deficiency documented in this encounter Care Teams Nuclear Pharmacist Relationship Specialty Start Date End Date Carolina Arguello ANP [address] [place] [address] PCP - General Family Medicine 06/15/20 Charlene Schmidt NP [address] [place] [address] Urology 05/02/25 Sia Melissa [address] [place] [address] Gastroenterology 05/12/25 documented as of this encounter
--- OUTSIDE RECORDS SUMMARY | 2025-10-12 12:10 | XMS_ITS | Continuity of Care Document ---
Author Organization [place] - [facility], [facility] Address [address] [place] [address] Care Team Providers Care Mutual Fund Analyst Name Role Phone MAYRA MYERS Primary Care [...] mcg/actuati on nasal spray,suspe nsion 2024 025 [facility] #[id number], [address] [facility] [place], [address], 5 15:08:49 Patient TargetsNo targets recorded. Patient InstructionsNo instructions recorded. Reason for Referral None Reported. Problems Name Problem SNOMED Code Status Onset Date Resolution Date Notes Provider Name and Address Organization Details Recorded Time Acute tonsillit is 61139221 Active 2014 Tonsillit is, acute; [facility] Treatment : new problem (to examiner) : no additiona l workup planned N ote: Date Diagnosed : 02/13/2015 1:39 PM (463) Not Available [facility] 4 02:47:42 Dysphasia 91371439 Active 2015 Dysphasia ; Note: Date Diagnosed : 12/15/2015 2:18 PM (R47.02) Not Available [facility] 4 02:47:41 Chronic disease of tonsils AND/OR adenoids 64276791 Active 2015 Calculus, tonsil; Note: Date Diagnosed : 10/15/2016 11:21 AM (J35.8) Not Available [facility] 4 02:47:36 Breath smells [facility] t 81921628 Active 2019 Halitosis ; Note: Date Diagnosed : 12/22/2019 10:47 AM (R19.6) WIL OLIVERA MD [address] [place] [address], [place], [address] , [facility] - [facility] 5 15:06:39 Allergic rhinitis caused by pollen 48207983 Active 2024 WIL OLIVERA MD [address] [place], [place] [address], [address] , [facility] - [facility] [place] 5 15:07:29 Sensation of foreign body in throat 79595675105 9104 Active 2024 WIL OLIVERA MD [address] [place], [place] [address], [address] , [facility] - [facility] [place] 5 12:13:58 Problem Notes None recorded. Procedures Surgical History Date Name Laterality Status Provider Name and Address Organization Details Recorded Time 07/21/20 25 Fiberoptic Laryngoscopy (Comprehensive) completed WIL OLIVERA MD [address] [place] [address], [phone], [facility] - [facility] 07/21/2025 15:06:31 Imaging Results None recorded. Procedure Notes None recorded. Medical Equipment None Reported. Allergies Allergen ID Allergen Name Allergen Category Reaction Reaction Severity Criticality Documentation Date Start Date Code Code System Note Provider Name and Address Organization Details Recorded Time 600878 shellfish derived food,medi cation Not available Not available Not available 07/21/2025 Marlyn zaman [place] - [facility] 15:02:51 Medications Name Sig Start Date [...] nebulizat ion 2014 active Medicati on ID: 70930 Br and Name: Albutero l Sulfate Send [...] a day 12/22 completed Medicati on ID: 80901 Du ration Value: 30 Reason: () Brand [...] by mouth 07/21 completed Medicati on ID: [id number] D uration Value: 7 Prescri bed By Name: Aisha Tabor nd Name: oxycodon e Send Method: E-Prescr ibed Sub s Allowed: subs OK Medic ationGen ericName : oxycodon e Not Available Not Available Not Available omeprazol e 40 mg capsule,d elayed release 1 capsule by mouth 2015 active Medicati on ID: 932884 D uration Value: 30 Prescri bed By [...] mg tablet 07/21 completed Medicati on ID: [id number] B rand Name: clonazep am Send Method: E-Prescr ibed Sub s Allowed: subs OK Medic ationGen ericName : clonazep am Not Available Not Available Not Available Risperdal 3 mg tablet 07/21 completed Medicati on ID: 803199 B rand Name: Risperda l Send Method: [...] nebulizat ion 2014 active Medicati on ID: 05292 Br and Name: Pulmicor t Send Method: [...] mg tablet 12/22 [place] Medicati on ID: 06586 Re ason: () Brand Name: Naprosyn Send [...] Compresso r 2014 active Medicati on ID: 67669 Br and Name: Comp-Air Nebulize r Compress [...] aerosol inhaler 07/21 completed Medicati on ID: 573566 B rand Name: Dulera S end Method: E-Prescr ibed Sub s Allowed: subs OK Medic ationGen ericName : Dulera Not Available Not Available Not Available Vitals Date Recorded Body height Body mass index (BMI) Body weight Provider Name and Address Organization Details Last Updated DateTime 07/21/2025 162.56 cm 33.1 kg/m2 67831.33 g Marlyn Barnhart [place] - [facility] 07/21/2025 14:59:28 Social History None recorded. Functional Status None recorded. Mental Status None recorded. Family History Nothing Reported. Medical History Condition Response Anxiety Y Depression Y Asthma Y Hypertension Y Past Encounters Encounter ID Performer Location Encounter Start Date Encounter Closed Date Diagnosis/Indication Diagnosis SNOMED-CT Code Diagnosis ICD10 Code Diagnosis IMO Codes Diagnosis Note [id number] WIL OLIVERA MD [facility] on [address] [place] [phone] 07/21/2025 14:40:56 07/21/2025 15:17:35 Breath smells unpleasant 24866308 R19.6 03290 Allergic r hinitis caused by pollen 41962844 J30.1 82441394 Sensation of foreign body in throat 4603108433 83889 R09.A2 661727 Health Concerns Section Related Observation LastModified by Organization Detai ls LastModified Time None Recorded Concern Status LastModified by Organization Details LastModified Time None Recorded Payers Encounter Date Sequence Insurance Name Policy Number Policy Hugo Covered Member ID Hugo Member ID Guarantor Name 07/21/2025 1 [place] [facility] Billy Poole Jr [id number] Billy Poole Jr Notes Date Note Type [...] to continue the therapy outlined by his manager department. I do not believe I will be able to resolve his concerns, but he is doing a good job controlling his oral hygiene. he may follow-up with his primary care as needed. WLI OLIVERA MD [address] [place] [address], [place], [phone], [facility] - [facility] 07/24/2025 12:14:18
== END 2025-10-12 11:09 | disposition home or self-care (01) ==
LOC: HO.HUSH 10:36
PROVIDERS: PCP Nurse Practitioner Primary Care; Visit Provider Nurse Practitioner Family
DX: R31.29 Other microscopic hematuria (principal); N28.1 Cyst of kidney, acquired; Z13.9 Encounter for screening, unspecified
CPT/HCPCS: 99213

== ENCOUNTER 2025-10-12 10:35 | Outpatient (REF) | payer MEDICAID, SELFPAY | END 2025-10-12 10:36 | disposition home or self-care (01) | LOC: HO.LAB 10:35 | PROVIDERS: PCP Nurse Practitioner Primary Care; Visit Provider Nurse Practitioner Family | DX: N28.1 Cyst of kidney, acquired (principal); R31.29 Other microscopic hematuria | CPT/HCPCS: 81003; 88112; 99212 ==